=== PATIENT | female | born 1940 | race Caucasian/White ===

== ENCOUNTER → 2018-03-16 16:54 | Outpatient (CLI) | payer MEDICARE, OTHER, SELFPAY ==
--- NOTE | 2018-03-16 17:10 | MRI_ITS ---
STUDY: MRI RIGHT SHOULDER REASON FOR EXAM: Female, 78 years old. Pain after lifting injury 2 weeks ago. TECHNIQUE: Standardized fat and water weighted pulse sequences were obtained in all 3 orthogonal planes. COMPARISON: None. FINDINGS: Tendinosis with thickening of the distal supraspinatus and infraspinatus tendons. There is full-thickness tearing of the distal tendon, series 6 images 06/10 through . There is subscapularis tendinosis with tendon attrition, but without a demonstrated subscapularis tendon tear. Normal teres minor tendon. There is mild muscular atrophy of the supraspinatus muscle. There is mild muscular atrophy of the infraspinatus muscle. Normal subscapularis muscle. Normal teres minor muscle. There is a moderate volume joint effusion of the glenohumeral joint. There is a cortical erosion at the insertion of the infraspinatus tendon. Tear at the biceps anchor with subluxation of the long head of the biceps. Normal labrum. Normal capsulo- ligamentous complex. Normal rotator interval. There is moderate osteoarthritis of the acromioclavicular articulations. There is a Type II morphology (curved) acromion, with a neutral orientation. There is moderate fluid distention of the subacromial bursa, consistent with moderate subacromial-subdeltoid bursitis. Normal visualized coracohumeral and coracoacromial ligaments. Normal quadrilateral space. Normal axillary space. Normal deltoid muscle. Normal trapezius muscle. MRI/Upper Ext Joint Only(Routine) IMPRESSION: Rotator cuff tear of the supraspinatus and infraspinatus tendons. Tearing of the biceps anchor with subluxation of the long head of the biceps. Joint effusion. Subacromial subdeltoid bursitis Electronically Signed: Turner Cormier MD at 19:41 EDT , Service support ,
== END ==
PROVIDERS: Family Provider Internal Medicine; PCP Internal Medicine; Visit Provider Physician Assistant
DX: M25.511 Pain in right shoulder (principal); R53.1 Weakness
CPT/HCPCS: 73221

== ENCOUNTER → 2018-04-22 10:04 | Outpatient (CLI) | payer MEDICARE, OTHER, SELFPAY ==
--- NOTE | 2018-04-22 10:07 | RAD_ITS ---
STUDY: X-RAY - RIGHT SHOULDER REASON FOR EXAM: Strain injury 4 months ago. TECHNIQUE: 3 view(s) of the shoulder. COMPARISON: Radiographs 06/04/2005. FINDINGS: Normal glenohumeral articulation. There is acromioclavicular arthrosis. Normal acromion. There is chronic fracture deformity of the clavicular shaft. Normal humeral head and visualized proximal humerus. The soft tissue structures are unremarkable. Normal visualized pulmonary apex. RAD/Shoulder min 2 Views IMPRESSION: Acromioclavicular arthrosis. Chronic fracture deformity of the clavicle. Electronically Signed: All Beltran MD at 14:25 EDT Tel , Service support ,
== END ==
PROVIDERS: Family Provider Internal Medicine; PCP Internal Medicine; Visit Provider Orthopaedic Surgery
DX: M19.011 Primary osteoarthritis, right shoulder (principal); M95.8 Other specified acquired deformities of musculoskeletal system
CPT/HCPCS: 73030

== ENCOUNTER → 2019-03-23 06:14 | Outpatient (CLI) | payer MEDICARE, OTHER, SELFPAY ==
[2018-12-14 13:06] VITALS: BMI 25.0
--- NOTE | 2019-03-23 16:18 | STRESSREP ---
Stress Test Report Pharmacologic myocardial perfusion stress test. 79-year-old lady with a history of palpitations left bundle branch block. Stress protocol: Resting EKG demonstrates normal sinus rhythm with a rate of 61 bpm left bundle branch block is noted resting blood pressures 158/80 8 m of mercury. 0.4 mg of regadenoson was infused per usual protocol and followed by Intravenous saline flush injection continuous EKG monitoring was performed. The maximum heart rate attained was 115 bpm which was 80% of maximum predicted heart rate and maximum workload was 1 metabolic equivalent. At rest there were no ST or T wave changes and is just abnormal flow reserve. Left bundle branch block pattern was noted throughout. The resting blood pressure 158/88 final blood pressure 730 over 70 mmHg Myocardial perfusion protocol. 11.5 mCi of technetium 99m sestamibi was injected at rest. 0.4 mg of regadenoson was infused per usual protocol peak infusion 34.1 mCi of technetium 99m sestamibi was injected stress images were obtained stress and rest images were reconstructed in comparing the short axis vertical and horizontal long axis. Gated images were also obtained Perfusion SPECT analysis: Review of the stress images demonstrate normal uptake of tracer noted in all areas of myocardium the rest images similar demonstrate normal uptake of tracer noted in all rest myocardium. There was mild reduction noted in the anterior wall on the stress and rest images suggestive of anterior breast wall attenuation artifact. Conclusion: Probably normal pharmacologic myocardial perfusion stress test. Left bundle branch block pattern noted. Preserved ejection fraction.
== END ==
PROVIDERS: Family Provider Internal Medicine; PCP Internal Medicine; Referring Provider Internal Medicine Cardiovascular Disease; Visit Provider Internal Medicine Cardiovascular Disease
DX: I44.7 Left bundle-branch block, unspecified (principal); R00.2 Palpitations; R93.1 Abnormal findings on diagnostic imaging of heart and coronary circulation; R94.31 Abnormal electrocardiogram [ECG] [EKG]
CPT/HCPCS: 78452; 93017; A9500; A4216; J2785

== ENCOUNTER → 2019-07-13 15:36 | Outpatient (CLI) | payer MEDICARE, OTHER, SELFPAY ==
[2018-12-14 13:06] VITALS: BMI 25.0
--- NOTE | 2019-07-13 15:44 | MRI_ITS ---
STUDY: MRI LUMBAR SPINE WITHOUT CONTRAST REASON FOR EXAM: Female, 79 years old. Back pain. Right leg pain. TECHNIQUE: Standardized fat and water weighted pulse sequences were obtained in the sagittal and axial planes. COMPARISON: Radiographs of July 19, 2015 FINDINGS: There is a 28 degree lumbar scoliosis with convexity to the right with a first degree spondylolisthesis of L4 over L5. There are no fractures and no abnormal mottled infiltrative processes. Almost all the disc spaces are narrowed except for L5-S1 L1-2: Disc space narrowing with marginal osteophytes. Degenerative changes of the facet joints. No focal disc protrusion or extrusion. L2-3: Disc space narrowing with marginal osteophytes. No focal disc protrusion or extrusion. Degenerative changes of the facet joints with hypertrophy ligamentum flavum and subsequent central canal stenosis. L3-4: Severe central canal stenosis secondary to marked hypertrophy of the ligamentum flavum and degenerative changes of the facet joints. There is also disc space narrowing with marginal osteophytes. L4-5: A first degree (6.3 mm) spondylolisthesis of L4 over L5. A very severe central canal stenosis secondary to hypertrophy of the ligamenta flava. Facet arthrosis. L5-S1: Normal endplates. Normal disc height, hydration and morphology. Normal bilateral facet joints. Normal central canal and bilateral lateral recesses. Normal bilateral intervertebral neural foramina. The aorta and visualized portions of the kidneys are within normal limits. MRI/Spine Lumbar (Routine) IMPRESSION: A first degree spondylolisthesis of L4 over L5. No focal disc protrusion or extrusion A 20 degree lumbar scoliosis with convexity to the right. Multilevel intervertebral osteochondrosis. Severe central canal stenosis at L2-3, L3-4 and L4-5 Electronically Signed: Guerrero Hsu MD at 4:52 EDT Tel , Service support ,
== END ==
PROVIDERS: Family Provider Internal Medicine; PCP Internal Medicine; Referring Provider Anesthesiology Pain Medicine; Visit Provider Anesthesiology Pain Medicine
DX: M54.9 Dorsalgia, unspecified (principal); M79.606 Pain in leg, unspecified
CPT/HCPCS: 72148

== ENCOUNTER 2019-09-05 11:30 | Outpatient (RCR) | payer MEDICARE, OTHER, SELFPAY ==
[2018-12-14 13:06] VITALS: BMI 25.0
--- NOTE | 2019-08-04 18:04 | HP.PTEVAL_ITS ---
Patient's Visit Information ECHO REED is a 79 year old F referred to Physical Therapy by Summer Hutchison MD with a diagnosis of BACK PAIN AND LEG PAIN. Date of Evaluation: 08/04/19 Physical Therapist: Chu Allen PT, Cert MDT, OCS - Visit Plan Frequency: 2x /Week Duration: 4 Weeks Plan: PT INERVENTIONS POSTURAL EX'S,DLS ABD/BACK ,LE STRENGTHENING,LUMBAR FLEXION - Subjective Findings: This 79 y/o female presents to physical therapy with back and leg pain. Patient has lumbar radiculopathy for several years which has progressively worse over time. Patient pain located Lumbar symmtrical riight leg thight below knee occasional foot. Symptoms are intemittant decsribed as throbbing/burning in leg,back described as ache. Aggravating factors walking,standing,bending to side ,lifting. Allevating factors some with sitting ,resting.Patient pain affects sleeping.Patient has occasionally parathesia/tingling in leg. Coughing /sneezing occassional back-. Bowel/bladder -. Patient had MRI severe spinal stenosis L2-3,L3-4,L4-5,Spondylolisthesis,20 scoliosis . Patient seen chiropractor helped. Also ,seen pain cohen management epidural injecton. Lumbar pain affects ADLS' ,housew ork tasks. Pateint pain affects QOL and function. SOCIAL: . VOCATION: retired - Objective POSTURE: mild foward posture,scoliosis,pelvs assymtry. GAIT: reciprocal pattern. NEURO: denies parathesia/tingling ,reflexes L3-4,L4-5,L4-5. MMT: quads/hams 4/5 ,hip 4/5,ankle 4/5. LUMBAR ROM: flexion min loss,extension min/mod loss,side glides min loss. FLEXABLITY: hams min tight - Special Tests L/S Slump test left side: Negative L/S Slump test right side: Negative L/S Left Straight Leg Raise: Negative L/S Right Straight Leg Raise: Negative Lumbar Standing: Flexion - Mechanical Response: No effect Lumbar Standing: Flexion - Symptoms During Testing: No effect Lumbar Standing: Flexion - Symptoms After Testing: No effect Lumbar Standing: Extension - Mechanical Response: No effect Lumbar Standing: Extension - Symptoms During Testing: Increases Lumbar Standing: Extension - Symptoms After Testing: No worse Lumbar Standing: Right Side Glides - Mechanical Response: No effect Lumbar Standing: Right Side [place] - Symptoms During Testing: No effect Lumbar Standing: Right Side [place] - Symptoms After Testing: No effect Lumbar Standing: Left Side [place] - Mechanical Response: No effect Lumbar Standing: Left Side [place] - Symptoms During Testing: No effect Lumbar Standing: Left Side [place] - Symptoms After Testing: No effect - Goals Goal 1:: Patient to be Indepenant with HEP Goal Time Frame: 4-6 Weeks Goal 2:: Patient improve posture for ADL'S Goal Time Frame: 4-6 Weeks Goal 3:: Patient to decrease symptoms with ADL'S by 50% or> to improve QOL. Goal Time Frame: 4-6 Weeks Goal 4:: Patient to improve lumbar ROM for function of recovery Goal Time Frame: 4-6 Weeks Goal 5:: Pateint to inmprove back owestry score by 5 points or> to improve QOL. Goal Time Frame: 2-4 Weeks - Rehabilitation Potential Physical Therapy Diagnosis: This patient has lumbar radiculopathy from stenosis affecting right side with pain wosre with walking ,standing affects ADL's and housework tasks ,better with flexion thus benifit from Skilled PT Rehabilitation Potential: Good - Anticipated Interventions Patient/Client Instruction: Educate patient on: Condition, Plan of Care For the Purpose of:: To decrease pain, To increase ROM, To improve ability to perform ADL's, To increase tolerance to activity/condition/position, To improve ability of physical actions for home/community/work/leisure, To improve health of tissue, To decrease soft tissue restriction, To increase flexibility/ROM, To improve ability to perform tasks related to life management Therapeutic Exercise to Include: Strength training, Postural training, Flexibilty training, Dynamic Lumbar Stabilization For the Purpose of:: To decrease pain, To increase ROM, To improve muscle performance and motor function, To increase tolerance to activity/condition/position, To improve ability of physical actions for home/community/work/leisure, To improve health of tissue, To decrease soft tissue restriction, To increase flexibility/ROM, To reduce risk of recurrence, To improve ability to perform tasks related to life management Thank you for the opportunity to evaluate your patient. For Medicare and Medicare HMO plans, please review the plan of care and approve it. It will need to be FAXED BACK to us at [phone] for Medicare purposes. For Medicare only, by signing this I certify the plan of care. Please let me know if there are questions or concerns regarding this plan of care. Physician Signature: Date:
--- NOTE | 2019-09-05 11:54 | HP.PTDCSUM ---
HP - PT D/C Summary It has been my pleasure to treat ECHO REED under orders from Summer Hutchison MD, for the diagnosis of BACK PAIN AND LEG PAIN for a total of 8 visit(s). Discharge Date: 09/05/19 Please see the following information for a summary of their discharge status. - Subjective Subjective: Doing alot better .. Ablle to do all ADL;S. No pain today - Pain LB Pain Intensity (Out of 10): 0 - Overall Improvement % Improvement: 80 - Objective Objective/Function: POSTURE: MILD FOWARD POSTURE. GAIT: RECIPROCAL PATTERN. MMT: /,EXCEPT 4-/5. LUMBAR ROM: FLEXION [place],EXTENSION MIN LOSS - Goals Goal 1:: Patient to be Indepenant with HEP Goal Progress: Goal Met Goal 2:: Patient improve posture for ADL'S Goal Progress: Goal Met Goal 3:: Patient to decrease symptoms with ADL'S by 50% or> to improve QOL. Goal Progress: Goal Met Goal 4:: Patient to improve lumbar ROM for function of recovery Goal Progress: Goal Met Goal 5:: Pateint to inmprove back owestry score by 5 points or> to improve QOL. Goal Progress: Goal Met - Plan Plan: D/C TO HEP - D/C Information Discharge Comments: HEP If there are questions or concerns regarding this patient's physical therapy, please feel free to call me at [phone]. Thank you for the referral of this patient. Sincerely, Chu Allen, PT, Cert MDT, OCS
== END 2019-09-05 19:00 | disposition home or self-care (01) ==
LOC: PT 11:30
PROVIDERS: Family Provider Internal Medicine; PCP Internal Medicine; Referring Provider Anesthesiology Pain Medicine; Visit Provider Anesthesiology Pain Medicine
DX: M54.9 Dorsalgia, unspecified (principal); M79.606 Pain in leg, unspecified
CPT/HCPCS: 97110; 97162; 97530

== ENCOUNTER → 2019-11-08 17:44 | Outpatient (CLI) | payer MEDICARE, OTHER, SELFPAY ==
[2018-12-14 13:06] VITALS: BMI 25.0
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
== END ==
PROVIDERS: PCP Internal Medicine; Referring Provider Anesthesiology Pain Medicine; Visit Provider Anesthesiology Pain Medicine
DX: M54.9 Dorsalgia, unspecified (principal); R29.898 Other symptoms and signs involving the musculoskeletal system
CPT/HCPCS: 72148

== ENCOUNTER → 2020-01-27 09:00 | Outpatient (CLI) | payer MEDICARE, OTHER, SELFPAY ==
[2019-12-13 11:38] VITALS: BMI 24.3
== END ==
PROVIDERS: PCP Internal Medicine; Referring Provider Nurse Practitioner Family; Visit Provider Nurse Practitioner Family
DX: R00.2 Palpitations (principal); I44.7 Left bundle-branch block, unspecified
CPT/HCPCS: 93225; 93226

== ENCOUNTER → 2020-03-06 08:54 | Outpatient (CLI) | payer MEDICARE, OTHER, SELFPAY ==
[2019-12-13 11:38] VITALS: BMI 24.3
--- NOTE | 2020-03-06 09:07 | BD_ITS ---
STUDY: DUAL ENERGY X-RAY ABSORPTIOMETRY / DXA REASON FOR EXAM: Female, 80 years old. 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 COMPARISON: Comparison is made with prior study dated July 31, 2009. FINDINGS: Lumbar Spine (L1-L4): g/cm2 (1.352) / T-score (1.3) / Z-score (3.1) Findings are suggestive of normal bone density with a low fracture risk. Increased thoracic kyphosis. Left Femur Total: g/cm2 (0.834) / T-score (-1.4) / Z-score (0.5) Left Femoral Neck: g/cm2 (0.887) / T-score (-1.1) / Z-score (1.0) Right Femur Total: g/cm2 (0.840) / T-score (-1.3) / Z-score (0.6) Right Femoral Neck: g/cm2 (0.955) / T-score (-0.6) / Z-score (1.5) The T-Scores on the most recent prior examination were: Lumbar Spine (L1-L4): There has been improvement of bone density since the previous examination. Left Femur Total: which represents a worsening of 19%. Right Femur Total: which represents a worsening of 14.1%. BD/Dexa Bone Density Study IMPRESSION: The patient is considered osteopenic as outlined below according to World Yair Organization (WHO) criteria with a low fracture risk. There has been worsening of bone density since the previous examination. Reference Information: The T-score is the number of standard deviations above or below the standard which is normal for young adults at their peak bone mineral density. The World Health Organization (WHO) interprets the T-scores as follows: Above -1 Normal bone density Between -1 and -2.5 Osteopenia Equal to / or below -2.5 Osteoporosis As a practical clinical guideline, osteopenia may be graded as follows: Mild -1 through -1.5 Moderate -1.6 through -2.0 Severe -2.1 through -2.4 The Z-score is the number of standard deviations above or below age-matched controls. A Z-score of less than -1.5 would be considered abnormal. References: 1. NIH Osteoporosis and Related Bone Diseases http://www.osteo.org 2. International Society for Clinical Densitometry http://www.iscd.org 3. National Osteoporosis Foundation http://www.nof.org Electronically Signed: Alphonso Dukes, at 12:32 EDT , Service support ,
== END ==
PROVIDERS: PCP Internal Medicine; Referring Provider Orthopaedic Surgery; Visit Provider Orthopaedic Surgery
DX: M41.86 Other forms of scoliosis, lumbar region (principal); M89.9 Disorder of bone, unspecified; Z78.0 Asymptomatic menopausal state
CPT/HCPCS: 77080

== ENCOUNTER → 2020-03-12 08:41 | Outpatient (CLI) | payer MEDICARE, OTHER, SELFPAY ==
[2019-12-13 11:38] VITALS: BMI 24.3
--- NOTE | 2020-03-12 08:43 | CDU_ITS ---
Reason For Study: stenosis Rt. Velocities/BP Lt. Velocities/BP Prox CCA 57/13 cm/sec. Prox CCA 95/25 cm/sec. Mid CCA 55/16 cm/sec. Mid CCA 73/25 cm/sec. Dist CCA 52/12 cm/sec. Dist CCA 71/20 cm/sec. Prox ICA 50/19 cm/sec. Prox ICA 58/24 cm/sec. Mid ICA 67/28 cm/sec. Mid ICA 89/36 cm/sec. Dist ICA 67/25 cm/sec. Dist ICA 113/47 cm/sec. Rt. ICA/CCA = 1.2. Lt. ICA/CCA = 1.2. Prox ECA 38/8 cm/sec. Prox ECA 47/14 cm/sec. Rt. Vert. 47/13 cm/sec. Lt. Vert. 58/20 cm/sec. Right Extracranial The right common carotid artery is tortuous. There is homogeneous, smooth atherosclerotic plaque noted in the right common carotid artery. There is homogeneous, irregular atherosclerotic plaque noted in the right internal carotid artery. The right external carotid artery is not well visualized. Antegrade flow is noted in the right vertebral artery. There is heterogeneous, irregular atherosclerotic plaque noted in the right bulb. Left Extracranial There is homogeneous, smooth atherosclerotic plaque noted in the left common carotid artery. There is homogeneous, smooth atherosclerotic plaque noted in the left internal carotid artery. There is homogeneous, smooth atherosclerotic plaque noted in the left external carotid artery. Antegrade flow is noted in the left vertebral artery. There is homogeneous, smooth atherosclerotic plaque noted in the left bulb. Procedure Carotid Duplex [id number]. The study was technically difficult. High bifurcation. Exam performed in department. Interpretation Summary Mild (<50%) stenosis right extracranial internal carotid. Mild (<50%) stenosis left extracranial internal carotid. Flow within the vertebral arteries is antegrade bilaterally. Atherosclerotic plaque in the carotid bulbs does not appear to be hemodynamically significant. Ordering Physician: Matt Iverson Referring Physician: Matt Iverson Performed By: Meryl Orellana, RUFINA, RVT
--- NOTE | 2020-03-12 08:43 | ART_ITS ---
Reason For Study: PVD Procedure A bilateral lower extremity continuous wave Doppler with analog waveform analysis,segmental pressures,and ankle brachial indexes without exercise. Left Segmental Pressures Left brachial= 133mmHg. Left posterior tibial artery = 171mmHg. Left dorsalis pedis artery = 177mmHg. Left digit = 145 mmHg. The left dorsalis pedis waveforms are triphasic. The left posterior tibial artery waveforms are triphasic. Right Segmental Pressures Right brachial= 137mmHg. Right posterior tibial artery = 178mmHg. Right dorsalis pedis artery = 178mmHg. Right digit = 103 mmHg. The right dorsalis pedis waveforms are triphasic. The right posterior tibial artery waveforms are triphasic. Indices The right ankle brachial index by the dorsalis pedis is 1.3. The right ankle brachial index by the posterior tibial artery is 1.3. The right digital-brachial index is .75. The left ankle brachial index by the posterior tibial artery is 1.25. The left ankle brachial index by the dorsalis pedis is 1.29. The left digital-brachial index is 1.06. Interpretation Summary Triphasic Doppler waveforms are noted at ankle level bilaterally. Pulse-volume recordings appear satisfactory at all levels bilaterally, including low-thigh, calf, ankle, and digital levels. Resting ankle-brachial indices are normal bilaterally. Digital-brachial indices are normal bilaterally. There is no evidence of significant arterial occlusive disease in the lower extremities bilaterally. Ordering Physician: Matt Iverson Referring Physician: Matt Iverson Performed By: FINA MARTINEZ RDCS
== END ==
PROVIDERS: PCP Internal Medicine; Referring Provider Nurse Practitioner Family; Visit Provider Nurse Practitioner Family
DX: I73.9 Peripheral vascular disease, unspecified (principal); I65.22 Occlusion and stenosis of left carotid artery
CPT/HCPCS: 93880; 93923

== ENCOUNTER → 2020-08-02 14:24 | Outpatient (CLI) | payer MEDICARE, OTHER, SELFPAY ==
[2019-12-13 11:38] VITALS: BMI 24.3
--- NOTE | 2020-08-02 14:26 | RAD_ITS ---
STUDY: X-RAY - LEFT KNEE REASON FOR EXAM: Female, 80 years old. Bilateral knee pain. TECHNIQUE: 4 view(s) of the knee. COMPARISON: None. FINDINGS: Normal visualized distal femur. Normal visualized proximal tibia and fibula. Normal proximal tibiofibular articulation. There is no acute fracture, dislocation or destructive osseous pathology. There is an enthesophyte at the insertion of the quadriceps tendon on the otherwise normal patella. There is moderate degenerative arthrosis of the medial femorotibial compartment with moderate joint space narrowing. Normal lateral femorotibial compartment. There is mild degenerative arthrosis of the patellofemoral articulation. There is no demonstrated joint effusion. The soft tissue structures are unremarkable. RAD/Knee 4 or More Views IMPRESSION: Arthrosis of the left knee. Electronically Signed: Deangelo Mendez DO at 21:15 EST Tel [phone], Service support ,
--- NOTE | 2020-08-02 14:27 | RAD_ITS ---
STUDY: X-RAY - RIGHT KNEE REASON FOR EXAM: Female, 80 years old. Bilateral knee pain. TECHNIQUE: Full view(s) of the knee. COMPARISON: None. FINDINGS: Normal visualized distal femur. Normal visualized proximal tibia and fibula. Normal proximal tibiofibular articulation. There is no acute fracture, dislocation or destructive osseous pathology. There is moderate to severe degenerative arthrosis of the medial femorotibial compartment with moderate joint space narrowing. Normal lateral femorotibial compartment. There is mild degenerative arthrosis of the patellofemoral articulation. The quadrant The soft tissue structures are unremarkable. RAD/Knee 4 or More Views IMPRESSION: Arthrosis of the right knee Electronically Signed: Deangelo Mendez DO at 21:21 EST Tel [phone], Service support ,
== END ==
PROVIDERS: PCP Internal Medicine; Visit Provider Anesthesiology Pain Medicine
DX: M17.0 Bilateral primary osteoarthritis of knee (principal)
CPT/HCPCS: 73564

== ENCOUNTER 2020-08-08 10:30 | Outpatient (RCR) | payer MEDICARE, OTHER, SELFPAY ==
[2019-12-13 11:38] VITALS: BMI 24.3
--- NOTE | 2020-08-08 11:53 | HP.PTDCSUM_ITS ---
It has been my pleasure to treat ECHO REED referred by MAURICE Lipscomb, with the diagnosis of LUMBAR SPONDYLOLISTHESIS. S/P L3-L5 FUSION & MICRODECOMP 06/25/20 for a total of 10 visit(s). Discharge Date: Please see the following information for a summary of their discharge status. Subjective: PATIENT REPORTS DR. MCLAUGHLIN GAVE HER SHOTS IN BOTH KNEES AND IT REALLY HELPED. PATIENT REPORTS SHE IS DOING HER HEP AND WALKING WITHOUT QUESTIONS OR CONCERNS. STILL TAKING TYLONOL 3 TIMES A DAY FOR LBP AND REPORTS SHE TRIED TO DECREASE THE TYLONOL BUT HASN'T BEEN ABLE TO. LOW BACK Pain Intensity (Out of 10): 1 RIGHT HIP Pain Intensity (Out of 10): 0 RIGHT KNEE Pain Intensity (Out of 10): 0 % Improvement: 70 Objective/Function: PATIENT WAS SEEN TODAY FOR RE-ASSESSMENT OF PROGRESS TOWARD THE SET PT GOALS AND THE NEED FOR FURTHER PHYSICAL THERAPY VS READINESS FOR DISCHARGE. THIS PT AND PATIENT ARE AGREEABLE TO DISCHARGE. PATIENT CONTINUES TO NOT WANT TO PROGRESS TO GYM EX'S OF ANY TYPE DUE TO THE VIRUS AND SHE IS HAPPY WITH HER HEP. SHE COMMUNICATED A GOOD UNDERSTANDING OF ALL INSTRUCTIONS GIVEN TODAY IN RERGUARD TO SLOW PROGRESSION TO BENDING AND TWISTING STARTING WITH SKTC AND LTR ONCE HER RESTRICTIONS ARE LIFTED. OVER-ALL PATIENT HAS DONE VERY WELL WITH PT. UPON EXAM TODAY: INDEP GAIT INTO PT WITHOUT ANY ASSISTIVE DEVICES AND WITHOUT LOB. GOOD CADANCE. PATIENT IS ABLE TO TRANSFER SIT TO STAND WITHOUT UE ASSIST. Motor deficit: BROOKE LE'S WFL. ROM deficit: BROOKE GENU VALGUS. UNABLE TO FULLY EXTEND BROOKE KNEES. Reflexes: NT. Dural Signs: NEGATIVE BROOKE LE'S. Lumbar mvmt loss: NT (PATIENT REPORTS SHE IS NOT ALLOWED TO BEND, LIFT OR TWIST UNTIL NEXT FOLLOW UP IN AUGUST). Core strength: FAIR. Palpation: INCISION LOOKS GOOD BUT THERE IS STILL A SCAB AT THE BOTTOM OF THE I NCISION AND SOME REDNESS. PATIENT DENIES DRAINAGE AND STATES HER IS MONITORING IT EVERY DAY. TODAY - WITH PATIENTS CONSENT MICHAEL SMITH DPT USED STERILE TWEEZERS TO GENTLY SUPERFICIALLY REMOVE SMALL SCAB AND WHAT APPEARED TO BE A SMALL PIECE OF STITCH THAT HAS NOT DISSOLVED. PATIENT TO CONTINUE TO MONITOR CLOSELY. Goal 1:: DECREASE C/O BACK AND LE SX'S. Goal 2:: IMPROVE LIFTING, WALKING, SITTING, STANDING, SLEEP, SOCIAL LIFE, TRAVEL AND HOMEMAKING FUNCTION Goal 3:: INSTRUCT IN PROPHYLAXIS Plan: D/C TO HEP If there are questions or concerns regarding this patient's physical therapy, please feel free to call me at [phone]. Thank you for the referral of this patient. Sincerely, Kennedi Delgado, PT, Cert MDT
== END 2020-08-08 19:00 | disposition home or self-care (01) ==
LOC: PT 10:30
PROVIDERS: PCP Internal Medicine; Referring Provider Nurse Practitioner Acute Care; Visit Provider Nurse Practitioner Acute Care
DX: M43.16 Spondylolisthesis, lumbar region (principal)
CPT/HCPCS: 97110; 97162; 97164; 97530

== ENCOUNTER 2020-10-30 09:41 | Outpatient (RCR) | payer MEDICARE, OTHER, SELFPAY ==
[2019-12-13 11:38] VITALS: BMI 24.3
== END 2020-10-30 23:59 ==
LOC: IMMUN 09:41
PROVIDERS: PCP Internal Medicine; Referring Provider Family Medicine; Visit Provider Family Medicine
DX: Z23 Encounter for immunization (principal)
CPT/HCPCS: 0012A

== ENCOUNTER → 2020-12-24 08:31 | Outpatient (CLI) | payer MEDICARE, OTHER, SELFPAY ==
[2020-12-14 10:25] VITALS: BMI 24.7
--- NOTE | 2020-12-24 08:33 | CT_ITS ---
STUDY: CT RIGHT LOWER EXTREMITY WITHOUT CONTRAST REASON FOR EXAM: Right knee pain, presurgical planning. TECHNIQUE: Transaxial CT imaging of the lower extremity was performed. Coronal and sagittal images were reformatted. Individualized dose optimization techniques were used for this CT. COMPARISON: Radiographs 08/02/2020. FINDINGS: Knee: There are marginal osteophytes, subchondral cystic change/sclerosis and joint space narrowing of the medial femorotibial compartment (coronal reconstruction 27). Normal lateral femoral condyle and lateral tibial plateau. There is preservation of the articular joint space of the lateral knee compartment. There are small marginal osteophytes and mild joint space narrowing of the patellofemoral articulation (sagittal reconstruction 31). Normal proximal tibiofibular articulation. There is a joint effusion sagittal reconstruction 25). The quadriceps tendon is grossly normal. There is an enthesophyte at the superior pole of the patella. The patellar tendon is grossly normal. Normal Hoffa''s fat pad. There is a popliteal cyst (sagittal reconstructions 39-43). There is chondrocalcinosis in the menisci. There is a posterior intra-articular body (sagittal reconstructions 31-33). There is vascular calcification. Hip: There are small marginal osteophytes of the femoral head, subchondral cystic change of the lateral acetabulum and mild joint space narrowing the superior medial hip joint (coronal reconstructions 59). There is chondrocalcinosis of the right hip. Ankle: Normal tibiotalar, posterior subtalar and and talonavicular articulations. There is a small posterior calcaneal enthesophyte. CT/Extremity Lower without Contra IMPRESSION: Arthrosis of the medial femorotibial and patellofemoral compartments. Intra-articular body. Chondrocalcinosis. Right knee joint effusion and popliteal cyst. Electronically Signed: All Beltran MD at 9:17 EDT Tel , Service support ,
== END ==
PROVIDERS: PCP Internal Medicine; Referring Provider Orthopaedic Surgery; Visit Provider Orthopaedic Surgery
DX: M17.11 Unilateral primary osteoarthritis, right knee (principal); M11.261 Other chondrocalcinosis, right knee; M71.21 Synovial cyst of popliteal space [Baker], right knee
CPT/HCPCS: 73700; 93005

== ENCOUNTER 2021-01-01 10:36 | Inpatient (IN) | payer MEDICARE, OTHER, SELFPAY ==
[2020-12-14 10:25] VITALS: BMI 24.7
--- NOTE | 2020-12-20 09:22 | NURSING ---
PATIENT HAS RECEIVED THE MODERNA VACCINE X2 LAST DOSE 11/30/20
--- NOTE | 2020-12-24 12:54 | EKG12_ITS ---
Test Reason : PRE OP Blood Pressure : / mmHG Vent. Rate : 073 BPM Atrial Rate : 073 BPM P-R Int : 130 ms QRS Dur : 122 ms QT Int : 424 ms P-R-T Axes : 068 023 109 degrees QTc Int : 467 ms Normal sinus rhythm Left bundle branch block Abnormal ECG Confirmed by DIAMOND CORONEL, RACHELE ([id number]), content editor KAMRAN MEZA ([id number]) on 12/26/2020 7:38:57 AM Referred By: Jignesh Foster Confirmed By:RACHELE FIELDS MD
[2020-12-24 13:31] LABS: Absolute Lymphocyte Count 1.55 X10^3/uL (0.83-4.51); Absolute Neutrophil Count 3.8 X10^3/uL (2.0-7.7); Basophil# 0.06 X10^3/uL; Eosinophil# 0.04 X10^3/uL; Eosinophils% 0.7 % (0-5); Hematocrit 37.4 % (37-47); Hemoglobin 12.1 g/dL (12.0-15.0); Lymphocyte # 1.55 X10^3/ul (4.0); Lymphocyte % 25.9 % (19-41); Mean Corp Hgb Conc 32.4 g/dL (32-36); Mean Corpuscular Hgb 30.2 pg (27.0-32.0); Mean Corpuscular Volume 93.3 fL (81-99); Mean Platelet Vol. 9.5 fl (6.2-12.0); Monocyte% 8.4 % (0-10); NRBC Flagged by Analyzer 0 % (0-5); Neutrophil # 3.81 X10^3/uL (2.7-7.7); Neutrophil % 63.7 % (47-70); Platelet Count 362 K/mm3 (150-450); RBC Distribution Width CV 13.2 % (11.6-14.6); RBC Distribution Width SD 45.4 fl (35.1-43.9); Red Blood Count 4.01 M/mm3 (4.2-5.4)
[2020-12-24 13:42] LABS: Prothrombin Time (Protime)PT. 12.6 SECONDS (11.7-14.9)
[2020-12-24 13:44] LABS: Partial Thromboplast Time 29.3 Seconds (24.1-36.2)
[2020-12-24 13:59] LABS: Anion Gap 8 (5-15); BUN 21 mg/dL (7-18); Calcium,Total 9.3 mg/dL (8.5-10.1); Chloride 106 mmol/L (98-107); Creatinine, Serum 0.81 mg/dL (0.55-1.02); EST Glomerular Filtration Rate 73 mL/min (>60); Est Glom Filt Rate - Afr Amer 88 mL/min (>60); Glucose 97 mg/dL (74-106); Potassium 3.9 mmol/L (3.5-5.1); Sodium Level 137 mmol/L (136-145)
[2020-12-24 14:02] LABS: Magnesium 2.1 mg/dL (1.6-2.6)
[2020-12-25 09:17] LABS: Fructosamine 263 umol/L (0-285)
[2021-01-01] VITALS (15 sets, daily range): BP systolic 102–137; BP diastolic 39–71; PULSE 57–92; RESP 14–18; TEMP 36.3–36.8; O2SAT 95–100; BMI 24.2
[2021-01-01] MEDS: Acetaminophen 500 MG Tablet 1000 MG PO ×3 (06:16→21:10)
[2021-01-01] MEDS: Gabapentin 600 MG Tablet PO (06:16)
[2021-01-01] MEDS: Scopolamine 1mg/72hr Patch 1 PATCH TD (06:16)
[2021-01-01] MEDS: Insulin Lispro 100 UNIT/ML INSULN.PEN SC (06:29)
[2021-01-01] MEDS: Lactated Ringers 1,000 ML 100 ML IV ×2 (06:31→10:45)
--- NOTE | 2021-01-01 07:10 | HP.PCM_ITS ---
History and Physical Date of Admission: 01/01/21 Intake Intake Visit Reasons: right knee Allergies cigarette smoke Allergy (Intermediate, Verified 12/20/20 08:50) difficulty breathing latex Adverse Reaction (Mild, Verified 12/20/20 08:50) Skin irritation, and skin tearing acetaminophen [From [place]] Adverse Reaction (Verified 12/20/20 09:00) suicidal hydrocodone [From [place]] Adverse Reaction (Verified 12/20/20 09:00) suicidal oxycodone Adverse Reaction (Verified 12/20/20 09:00) flu-like symptoms tramadol Adverse Reaction (Verified 12/20/20 09:00) suicidal seasonal allergies Allergy (Uncoded 12/20/20 08:50) sinus PFSH Medical History Essential hypertension (Chronic) Left bundle branch block (Chronic) h/o back surgery (Acute) Spinal stenosis (Chronic) Dizziness (Inactive) Surgical History History of carpal tunnel release of both wrists (Resolved) History of lateral meniscus repair of right knee (Resolved) Hx of cataract surgery (Resolved) S/P trigger finger release (Resolved) Family History (Updated 12/14/20 @ 10:36 by Nita Menchaca) Father Negative for ASCVD Colon cancer Mother Negative for ASCVD Colon cancer Brother Lung cancer Sister Bile duct cancer Lung cancer Social History (Updated 12/21/20 @ 09:[address] Jignesh Foster DO) household members: spouse housing: house Smoking Status: Never smoker second hand exposure: No alcohol intake: never substance use type: does not use caffeine: Yes Type: coffee, tea what type of physical activity do you participate in: walking, additional details: exercises for her back and knee frequency: daily seatbelt use: always do you feel safe at home: Yes HPI right knee: Details: Parts of this documentation were recorded by a scribe, this documentation accurately reflects the service provided and the decisions made by me, Dr. Jignesh Foster DO 12/21/20 [id number]. ECHO REED is a 80 year old F here today for right knee IOVERA treatment. Patient continues to have right knee pain. Denies numbness, tingling or other associated symptoms since she had her lumbar surgery in 06/2020. Denies any new injuries. Denies any changes in medications. ROS Const Reports system reviewed and no additional complaints, except as docu Eyes Reports system reviewed and no additional complaints, except as docu ENT Reports system reviewed and no additional complaints, except as docu Card Reports system reviewed and no additional complaints, except as docu Resp Reports system reviewed and no additional complaints, except as docu GI Reports system reviewed and no additional complaints, except as docu Reports system reviewed and no additional complaints, except as docu Musc Reports joint pain, Reports limited joint movement Skin/Breast Reports system reviewed and no additional complaints, except as docu Neuro Yes system reviewed and no additional complaints, except as docu Psych Reports system reviewed and no additional complaints, except as docu Endo Reports system reviewed and no additional complaints, except as docu Ortho Exam General General: Yes no acute distress Neurologic: Yes alert Psychologic: Yes reasonable and appropriate Right Knee Knee ROM: No ROM-Extension -20 to 0 (-7), No ROM-Flexion 0-140 (115) Stability: NML: Anterior Drawer, NML: Posterior Drawer, NML: Valgus 0, NML: Valgus 30, NML: Varus 0, NML: Varus 30 Patella Translation: 1 Patella Grind: Yes KNEE: varus deformity no joint effusion fixed varus deformity 2/4 posterior tibial pulse 1/4 dorsalis pedis pulse 10 degrees internal rotation 45 degrees external rotation Left Knee Patella Translation: 1 Office Procedures Iovera Details:: Preoperative diagnosis :right knee pain, OA Postoperative diagnosis: Same Procedure: Cryotherapy with Iovera device to anterior femoral cutaneous nerve and 2 branches of the infrapatellar saphenous nerve III nerves in total Description of procedure: Patient was brought back to the procedure room the operative extremity was identified by both patient and physician. The PIP flexion crease was measured to the midpoint of the patella and this distance was divided in 3 resulting in 10 cm location proximal to the midpoint of the patella. This line was extended medial and lateral to the extent of the edges of the patella. This was our treatment line for the anterior femoral cutaneous nerve. A second treatment line was made 5 cm medial to the inferior pole of the patella and 5 cm distally. The leg was prepped with alcohol and Betadine. Lidocaine with epi was used along the treatment lines. Using the Iovera device treatment lines were treated with 1 minute cycles. Reproduction of paresthesias was monitored in the area of nerve distribution. Once all 3 nerves were treated across the 2 treatment lines patient was cleaned and a light dressing with 4 x 4 and Joce wrap was applied. Patient tolerated the procedure without complication. Supplemental Info 08/02/2020 x-ray right knee: Advanced knee arthrosis [id number] medial compartment with varus deformity spurring throughout the knee Assessment & Plan Problems 1. Chronic pain of right knee M25.561; G89.29 Plan Discussed IOVERA tx with the patient. Patient wishes to proceed with IOVERA tx today. She was given her pre op soap and ensure drinks at the last visit. She has a walker at home she will bring to the hospital with her. Follow up 2 week post op or sooner if pain, swelling, numbness or associated symptoms, or concerns develop. All questions answered. Patient in agreement of plan. Orders Orders: Iovera Today M25.569 Coding Level of Care Code Attention Engineering Technologist Diagnoses Chronic pain of right knee M25.561; G89.29 ??Chronicity: chronic I have re-examined the patient. There are no clinical changes since date of exam Procedure Criteria Procedure Type: Elective COVID Risk Discussion: The surgeon/proceduralist and patient have discussed in detail the risk of exposure to and/or potential harm posed by the COVID-19 virus with having a surgery/procedure at this time versus the risk of delaying the surgery/procedure. It is not possible to know either the risk of delaying the surgery or procedure or chance of getting an infection with perfect accuracy, but a joint decision was made between the patient and the surgeon/proceduralist to proceed at this time with the scheduled surgery/procedure as indicated on the consent form.
[2021-01-01] MEDS: Cefazolin 2 GM in 0.9% Normal Saline 100 ML IV (07:43)
[2021-01-01 08:01] LABS: Bedside Glucose 191 mg/dL (70-110)
[2021-01-01] MEDS: Epinephrine (1 mg/ml) 1 MG/ML VIAL (09:59)
[2021-01-01] MEDS: Betamethasone/Betamethasone 30 MG/5 ML Vial (10:01)
[2021-01-01] MEDS: Bupivacaine 0.5% PF 10 ML VIAL OPERA.SITE (10:01)
--- NOTE | 2021-01-01 10:39 | PCM.OPRPT ---
Report of Operation Date of Procedure: 01/01/21 Description of Surgical Findings:: Preoperative diagnosis: Right knee DJD Postoperative diagnosis: Same Procedure: Right total knee arthroplasty CT guided Robotic Assisted Implant: Rodrigue triathlon cemented femoral component size 4, cemented tibial baseplate size 4, press fit asymmetric patella size 35, polyethylene X3 size 9 CS Anesthesia: Spinal with adductor canal block Tourniquet time: 28 minutes at 300 mmHg Complications: None Condition: Stable to PACU Estimated blood loss: 150 cc Indication for procedure: This is a 80-year-old female with long standing degenerative joint disease severe varus deformity and flexion contracture of the knee who has failed conservative treatment and wished to proceed with elective total knee arthroplasty. Risk benefits and alternatives were reviewed including; risk of bleeding, infection, nerve artery and tissue damage, continued pain, postoperative stiffness, venous thromboembolism, need for postoperative rehabilitation, mechanical feel to the knee, and expected postoperative course. The operative CT and templating was performed with component sizing Procedure: The patient was met in the preoperative holding area. The operative extremity was identified by both patient and physician and was marked. Patient was met by anesthesia. An adductor canal block was placed by anesthesia postoperatively the patient was brought back to the operating room on a wheeled cart and transferred to the operating table in the supine position. Anesthesia was started. A well-padded tourniquet was placed on the operative extremity. The patient was prepped and draped in the usual sterile fashion. A timeout was called to ensure the proper patient procedure and extremity were being contemplated. An Esmarch was used to exsanguinate the extremity. The tourniquet was inflated. A 10 blade scalpel was used to make a midline incision down through the skin and subcutaneous tissue. Skin retractors placed. Bovie was used to perform meticulous hemostasis. full-thickness flaps were elevated medial and lateral along the joint capsule. A deep blade scalpel was used to perform a medial parapatellar arthrotomy. The knee was brought to full extension. A Bovie was used to release the soft tissues off the most proximal aspect of the medial tibial plateau, a three-quarter inch curved osteotome was also used for this process. The infrapatellar fat pad was excised. The superior fat pad was excised partially anteriorolateraly and portion the anterioromedial pad was elevated from the femur. At this point our intra-articular femoral array was placed of a 45 degree angle proximal and posterior to the medial epicondyle. Our tibial array was placed greater than 1 hands breath below the incision at a 20 degree angle stab incisions were used for this case were attached and checked with the robotic software. Tourniquet was let down. At this point registration fuentes were taken throughout the knee as well as checkpoints placed in the femur and tibia once the knee was registered then tensioned the medial and lateral ligaments in extension and 90 degrees of flexion. We then used these numbers to adjust our components within parameters to balance the knee in both flexion and extension once this was done on our monitor we then proceeded with using the robotic arm to make our tibial plateau cut and anterior posterior and chamfer cuts and distal on the femur we then trialed and achieved the desired plan with a well-balanced knee, Quiring 18-gauge spinal needle perforated release under a controlled lamina automobile upholsterer apprentice of the medial compartment MCL. Lug holes were drilled in the femur the tibia preparation was completed with a fin punch and the patella was prepared by first using a caliper to ensure sufficient bone stock and a patellar reamer to remove the desired amount of bone locals were drilled for an asymmetric poly-. We then brought the knee through range of motion with excellent patellar tracking. We thoroughly irrigated the knee with a trial components were removed a posterior capsular injection with her standard cocktail was performed the aqua Mantis was also used to aid in hemostasis. Betadine rinse was allowed to sit and washed out components were demented. Aricept rinse was then used followed by several more rate liters of irrigation after it was allowed to sit. Joint capsule was closed with #1 Ethibond [id number]'s followed by Vicryl in the subcutaneous tissues staple in the skin arrays and checkpoints were removed prior to closure all counts were correct stab incisions were closed with a stable standard dressing in the form of Mepilex for the main incision Xeroform 4 x 4 and Tegaderm over pin site holes. Thigh-high VAN hose applied over top of dressing. Patient tolerated the procedure well and was directed to PACU in stable condition no intraoperative complications
--- NOTE | 2021-01-01 11:25 | RAD_ITS ---
STUDY: X-RAY - RIGHT KNEE REASON FOR EXAM: Postop right total knee arthroplasty. TECHNIQUE: 2 view(s) of the knee. COMPARISON: Radiographs 12/14/2020. FINDINGS: There is a right total knee arthroplasty without evidence of complication. There is postoperative gas in the soft tissues and overlying skin apolinar. RAD/Knee 1 or 2 Views IMPRESSION: Uncomplicated right total knee arthroplasty. Electronically Signed: All Beltran MD at 12:08 EDT Tel , Service support ,
[2021-01-01 11:35] LABS: Bedside Glucose 97 mg/dL (70-110)
[2021-01-01] MEDS: Cefazolin 1 GM/50 ML BAG IV ×2 (12:00→21:08)
[2021-01-01] MEDS: oxyCODONE 5 MG Tablet 2.5 MG PO ×2 (13:37→21:08)
[2021-01-01] MEDS: Metoprolol Tartrate 25 MG Tablet 12.5 MG PO (21:08)
[2021-01-01] MEDS: Magnesium Chloride 64 MG Delay Rel.Tablet 128 MG PO (21:10)
[2021-01-01] MEDS: Senna/Docusate Sodium 1 Tablet 2 TABLET PO (21:10)
[2021-01-01] MEDS: Gabapentin 100 MG Capsule 200 MG PO (21:10)
[2021-01-02] VITALS (8 sets, daily range): BP systolic 109–129; BP diastolic 48–70; PULSE 74–84; RESP 17–18; TEMP 36.2–36.8; O2SAT 95–96
[2021-01-02] MEDS: Acetaminophen 500 MG Tablet 1000 MG PO ×4 (05:11→23:14)
[2021-01-02] MEDS: Cefazolin 1 GM/50 ML BAG IV (05:13)
[2021-01-02] MEDS: oxyCODONE 5 MG Tablet 2.5 MG PO (06:10)
[2021-01-02] MEDS: APIXABAN 2.5 MG TABLET PO ×2 (06:19→18:04)
[2021-01-02 06:45] LABS: Hematocrit 26.1 % (37-47); Hemoglobin 8.2 g/dL (12.0-15.0); Mean Corp Hgb Conc 31.4 g/dL (32-36); Mean Corpuscular Hgb 29.6 pg (27.0-32.0); Mean Corpuscular Volume 94.2 fL (81-99); Mean Platelet Vol. 9.1 fl (6.2-12.0); Platelet Count 292 K/mm3 (150-450); RBC Distribution Width CV 13.2 % (11.6-14.6); RBC Distribution Width SD 45.6 fl (35.1-43.9); Red Blood Count 2.77 M/mm3 (4.2-5.4); White Blood Count 10.2 K/mm3 (4.4-11.0)
[2021-01-02 07:10] LABS: Anion Gap 0 (5-15); BUN 12 mg/dL (7-18); BUN/Creat Ratio 16.7 RATIO (10-20); Calcium,Total 8.4 mg/dL (8.5-10.1); Chloride 108 mmol/L (98-107); Creatinine, Serum 0.72 mg/dL (0.55-1.02); EST Glomerular Filtration Rate 83 mL/min (>60); Est Glom Filt Rate - Afr Amer 101 mL/min (>60); Estimated Creatinine Clearance 38.35 ml/min; Glucose 134 mg/dL (74-106); Potassium 4.2 mmol/L (3.5-5.1); Sodium Level 138 mmol/L (136-145)
--- NOTE | 2021-01-02 07:56 | DCINST_ITS ---
Discharge Diet: No Restrictions Weight Bearing Status: Weight bearing as tolerated Keep extremity elevated above heart level: Operative Extremity Call your doctor if you observe: Shortness of breath, Chest pain, Uncontrolled pain Additional Instructions: Ice and elevate one week while not ambulating. Ambulation is encouraged. Weightbearing as tolerated. Use assistive devise for stability. Encourage FULL knee extension and flexion 1 time EVERY time you get up and down and MULTIPLE times per day. No showering 72 hours after surgery. Begin showering postop day #3. Remove the dressing prior to shower and gently wash with warm water and antibacterial soap then pat dry and place abdominal pad (or plain gauze) and VAN hose over top. This is to be done daily. Do not submerge for 3 weeks. If not showering daily after the initial 72 hours then you must clean incision and change dressing daily. Do not allow animals near the incision area. Keep clean. Follow anticoagulation recommendations as prescribed. Do not take any NSAIDs while on blood thinner. Do not take any additional narcotic pain medication other than what was prescribed on you surgery day without discussing with physician. Start physical therapy. If you are not currently scheduled for physical therapy or you are unsure of appointment time please call office [facility] to arrange. Call Dr. Foster with any concerns. Allergies/Adverse Reactions: Allergies cigarette smoke Allergy (Intermediate, Verified 12/20/20 08:50) difficulty breathing latex Adverse Reaction (Mild, Verified 12/20/20 08:50) Skin irritation, and skin tearing hydrocodone [From [place]] Adverse Reaction (Verified 12/20/20 09:00) suicidal oxycodone Adverse Reaction (Verified 12/20/20 09:00) flu-like symptoms tramadol Adverse Reaction (Verified 12/20/20 09:00) suicidal seasonal allergies Allergy (Uncoded 12/20/20 08:50) sinus Medications to take at Discharge Lactobacillus acidophilus 1 cap PO QDAY 12/07/17 cholecalciferol (vitamin D3) 1,250 mcg (50,000 unit) capsule 50,000 unit PO QMONTH cap 12/08/17 gabapentin 300 mg capsule 200 mg PO QHS cap 12/14/18 cinnamon bark-chromium picolinate 500 mg-100 mcg capsule 1 cap PO DAILY 12/13/19 garlic 1,000 mg capsule 1,000 mg PO DAILY cap 03/24/20 glucosamine-chondroitin 250 mg-200 mg tablet 1 tablet PO DAILY tablet 12/14/20 vitamin B complex 1 cap PO DAILY 12/14/20 Ascorbic Acid [Vitamin C] 500 mg PO DAILY@0800 12/20/20 Magnesium Oxide [Magnesium] 250 mg PO BID 12/20/20 Metoprolol Tartrate 12.5 mg PO BID 12/20/20 Ubidecarenone [Coq-10] 100 mg PO DAILY 12/20/20 Acetaminophen [Tylenol] 1,000 mg PO Q8 #100 tablet 01/02/21 Apixaban [Eliquis] 2.5 mg PO 0700,1900 #28 tablet 01/02/21 Oxycodone [Oxyir] 2.5 mg PO Q4H PRN PRN #40 tablet 01/02/21 The following prescriptions were given: Apixaban [Eliquis] 2.5 mg PO 0700,1900 #28 tablet Transmission Status: Pending to [facility] Oxycodone [Oxyir] 2.5 mg PO Q4H PRN PRN #40 tablet PRN Reason: Pain Score 4-10 Transmission Status: Sent to [facility] Acetaminophen [Tylenol] 1,000 mg PO Q8 #100 tablet Transmission Status: Pending to [facility] Orders to be completed after discharge: Type & Screen - PAT ONLY Time Frame: 12/24/20, Facility: [facility], Location: Laboratory Primary Care Physician: Charisma Healy MD [Primary Care Provider] - Test Results: Test results from this visit will be discussed in further detail at your follow- up appointment, if applicable. Please Follow Up With: Jignesh Foster DO When: 2 weeks
[2021-01-02] MEDS: Magnesium Chloride 64 MG Delay Rel.Tablet 128 MG PO ×2 (09:21→23:13)
[2021-01-02] MEDS: Ascorbic Acid 500 MG Tablet PO (09:21)
[2021-01-02] MEDS: Metoprolol Tartrate 25 MG Tablet 12.5 MG PO ×2 (09:21→23:16)
--- NOTE | 2021-01-02 11:30 | CASEMGMT ---
Addendum entered by Radha Lares 01/02/21 14:04: 1310: Per pt's daughter, Bree, pt has voiced to her she is having difficulty w/pain mgmt and is stating she wishes now that she was going somewhere instead of home. RN CM to room to talk with pt. Pt sitting up in recliner chair, tearful. in room visiting. Both pt and state they feel pt should go somewhere for therapy prior to returning home. SHREYAS, Zina Ku made aware. Per Rosangela, pt is nauseous and continues w/ difficulty with pain mgmt. She has notified Dr Foster and discharge has been cancelled. FWW has already been delivered to pt's room. Call placed to [facility] and they were made aware discharge has been cancelled and that pt may be going to SNF or [facility] @ discharge. They state they will f/u w/CM tomorrow morning re: discharge plan and will come pick pack worker FWW if pt is not discharging home. Original Note: RN CM TANK FARM GAUGER CM to room to meet with patient for initial transition planning/care coordination assessment. THALIA GILMORE introduced self and role at [facility]. Pt voices understanding and consents to assessment at this time. Pt resting in bed in no distress at this time. Pt is A/O at this time and answers all questions appropriately. Care providers, pharmacy, and demographics verified/updated at this time. PCP: Dr Healy Specialists:Dr Foster--orthopedic, Dr Hutchison-pain mgmt, Dr Chavez-cardiology Preferred Pharmacy: [facility] Retail Insurance: [facility], MMO Prescription Benefit: Yes Living Will/HPOA: Has both LW and Healthcare POA, who is her , Ozzy LNOK: , Ozzy. Dtr, Yany Living Arrangements: Lives w/her , Ozzy in one-story home w/1 step to enter. Was independent prior to surgery. Transportation: Pt, DME: States has the following DME: shower chair, rails/grab bars, cane, walker, W/C, dividing machine operator, glucometer. Per therapy, pt's walker is bent and they recommend a new walker for pt. Pt obtained the current walker she has from a [employer] store. THALIA GILMORE discussed a new walker w/pt and she is agreeable. Discussed options of local DME co's and she states [employer]. Script for FWW obtained from Dr Stone and faxed to [facility]. Call placed to Yan @ [facility] and he was made aware pt is discharging home today. [employer] will deliver walker to pt's room. Pt states no need for further DME at this time. HHC/SNF: No history of either. Pt states she wishes to return home w/OP therapy @ [facility]. She states she has an appt this Thursday. Pt voices to this RN CM that she feels sick when taking Oxycodone and requesting something different to take when she goes home. Rosangela, RN, made aware and will address w/Dr Foster. CM to follow for any further discharge planning/needs. Pt voices no further concerns/needs at this time. Advised pt to ask for CM if any further questions/concerns/needs arise. Voices understanding. PLAN: Home w/OP therapy. [employer] to deliver FWW to pt's room today prior to discharge. Mary ROSS RN CM
--- NOTE | 2021-01-02 12:02 | PHA.DC.MC ---
Pharmacy Service has performed discharge medication reconciliation and counseling for this patient. 1. ACETAMINOPHEN 1000MG PO Q8H 2. APIXABAN 2.5MG PO BID X 14 DAYS 3. OXYCODONE 2.5-5MG PO Q4H PRN PAIN 4-10 The patient's discharge medication list was reviewed for discrepancies and discrepancies were resolved. Home Medications Lactobacillus acidophilus 1 cap PO QDAY 12/07/17 cholecalciferol (vitamin D3) 1,250 mcg (50,000 unit) capsule 50,000 unit PO QMONTH cap 12/08/17 gabapentin 300 mg capsule 200 mg PO QHS cap 12/14/18 cinnamon bark-chromium picolinate 500 mg-100 mcg capsule 1 cap PO DAILY 12/13/19 garlic 1,000 mg capsule 1,000 mg PO DAILY cap 12/13/19 glucosamine-chondroitin 250 mg-200 mg tablet 1 tablet PO DAILY tablet 12/14/20 vitamin B complex 1 cap PO DAILY 12/14/20 Ascorbic Acid [Vitamin C] 500 mg PO DAILY@0800 12/20/20 Magnesium Oxide [Magnesium] 250 mg PO BID 12/20/20 Metoprolol Tartrate 12.5 mg PO BID 12/20/20 Ubidecarenone [Coq-10] 100 mg PO DAILY 12/20/20 Acetaminophen [Tylenol] 1,000 mg PO Q8 #100 tablet 01/02/21 Apixaban [Eliquis] 2.5 mg PO 0700,1900 #28 tablet 01/02/21 Oxycodone [Oxyir] 2.5 mg PO Q4H PRN PRN #40 tablet 01/02/21 The patient was counseled on the following discharge medications and changes in medications for homegoing were reviewed. The Reason for Use, instructions for use, and potential side effects were reviewed for all new medications. The patient's questions regarding all of their medications were answered. The patient was able to verbally demonstrate an understanding of their discharge medications.
--- NOTE | 2021-01-02 13:43 | CASEMGMT ---
Social Work Note SW updated that pt's discharged will be cancelled today. Pt also requesting [facility] at discharge now. SW placed call to [facility] with [facility] and provided referral. [facility] to review referral. SW in to speak with pt. Pt's Leno present in room. SW introduced self and role at [facility]. Pt is alert and orientated. Pt confirms she would like to discharge to [facility]. Patient was provided a list of (SNF and IRF) providers including quality and resource use data and consistent with the patient?s preferred geographic region, medical needs, and insurance network. Pt confirms preferred provider is [facility]. SW explained that this worker has made referral to [facility], SW is just waiting for approval. SW informed pt that once this worker knows if [facility] is able to accept, SW will let pt know. Pt states understanding. Plan: [facility] pending acceptance Zina Ku METALIZING MACHINE OPERATOR, HEART SPECIALIST
[2021-01-02] MEDS: Ondansetron ODT 4 MG Tablet PO (14:11)
[2021-01-02] MEDS: Senna/Docusate Sodium 1 Tablet 2 TABLET PO (23:14)
[2021-01-02] MEDS: Gabapentin 100 MG Capsule 200 MG PO (23:14)
[2021-01-03 02:29] VITALS: BP 118/67; PULSE 73; RESP 17; TEMP 36.7; O2SAT 93
[2021-01-03] MEDS: APIXABAN 2.5 MG TABLET PO (06:26)
[2021-01-03] MEDS: Acetaminophen 500 MG Tablet 1000 MG PO ×2 (06:26→11:50)
--- NOTE | 2021-01-03 07:12 | PCM.DC.SUM ---
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 Patient underwent the aformentioned procedure on the admission date without any intraoperative complications. Patient did receive pre-and postoperative antibiotics which were discontinued within 23 hours postoperatively. Patient did receive [spinal anesthesia as well as an adductor canal block postoperatively]. pain was controlled with IV and transition to p.o. pain medication she does have severe nausea with oxycodone with therefore changed her to Ultram in between Tylenol even though she has a history of suicidal ideation with higher doses we will attempt to use a minimal dose and this was counseled with the patient and patient she feels comfortable with this patient will be discharged rehab with tramadol and Eliquis and will continue Tylenol as well. Patient had minimal intraoperative blood loss and 2gm tranexamic acid was administered there was no need for postoperative blood transfusion Patients vital signs remained stable. Patient was started on both mechanical and chemical DVT per prophylaxis postoperatively in the form of SCDs VAN hose and [Eliquis 2.5 mg twice daily for which she will continue for 2 additional weeks post hospital discharge]. thigh high van hose placed over top of the meplix silver dressing. This should be removed 72 hrs post operatively and showering begun daily at that time with warm water and antibacterial soap. not to submerge for 3 weeks. To change dressing daily after first dressing change. Patient will follow-up in the office in 2 weeks. No intrahospital complications. - Physical Exam Vitals/I&O's: Vital Signs Temp Pulse Resp BP Pulse Ox 98.1 F 73 17 118/67 93 01/03/21 02:29 01/03/21 02:29 01/03/21 02:29 01/03/21 02:29 01/03/21 02:29 Oxygen Flow Rate (L/min) 6 Oxygen Delivery Method Room Air Weight: 136 lb 14.513 oz Body Mass Index (BMI) 24.2 Intake and Output for Last 24 Hours 01/01/21 01/02/21 01/03/21 23:59 23:59 23:59 Intake Total 4 / 4 1210 / 1210 950 / 950 Balance 2533 / 4 1210 / 1210 950 / 950 General: Alert, Oriented x3, Cooperative, No apparent distress Extremities: - - VAN hose removed appropriate amount of swelling considering surgery neurovascular intact compartments soft dressing clean dry and intact Current Medications Acetaminophen (Acetaminophen 500 Mg Tablet) 1,000 mg PO Q6 [facility] Last Admin: 01/03/21 06:26 Dose: 1,000 mg Documented by: Apixaban (Apixaban 2.5 Mg Tablet) 2.5 mg PO 0700,1900 [facility] Last Admin: 01/03/21 06:26 Dose: 2.5 mg Documented by: Ascorbic Acid (Ascorbic Acid 500 Mg Tablet) 500 mg PO DAILY@0800 [facility] Last Admin: 01/02/21 09:21 Dose: 500 mg Documented by: Ergocalciferol (Ergocalciferol 50,000 Unit Capsule) 50,000 unit PO QMONTH [facility] Gabapentin (Gabapentin 100 Mg Capsule) 200 mg PO QHS [facility] Last Admin: 01/02/21 23:14 Dose: 200 mg Documented by: Lactobacillus Acidophilus (Lactobacillus Acidophilus) 1 tablet PO DAILY [facility] Last Admin: 01/02/21 09:21 Dose: 1 tablet Documented by: Magnesium Chloride (Magnesium Chloride 64 Mg Delay Rel.Tablet) 128 mg PO BID [facility] Last Admin: 01/02/21 23:13 Dose: 128 mg Documented by: Metoprolol Tartrate (Metoprolol Tartrate 25 Mg Tablet) 12.5 mg PO BID [facility] Last Admin: 01/02/21 23:16 Dose: 12.5 mg Documented by: Ondansetron HCl (Ondansetron Odt 4 Mg Tablet) 4 mg PO Q6H PRN PRN PRN Reason: NAUSEA Last Admin: 01/02/21 14:11 Dose: 4 mg Documented by: Senna/Docusate Sodium (Senna/Docusate Sodium 1 Tablet) 2 tablet PO BID [facility] Last Admin: 01/02/21 23:14 Dose: 2 tablet Documented by: Tramadol HCl (Tramadol 50 Mg Tablet) 50 mg PO Q6H PRN PRN PRN Reason: Pain Score 6-10 Discharge Diet: No Restrictions Weight Bearing Status: Weight bearing as tolerated Keep extremity elevated above heart level: Operative Extremity Call your doctor if you observe: Shortness of breath, Chest pain, Uncontrolled pain Home Medications: Medications to take at Discharge Lactobacillus acidophilus 1 cap PO QDAY 12/07/17 cholecalciferol (vitamin D3) 1,250 mcg (50,000 unit) capsule 50,000 unit PO QMONTH cap 12/08/17 gabapentin 300 mg capsule 200 mg PO QHS cap 12/14/18 cinnamon bark-chromium picolinate 500 mg-100 mcg capsule 1 cap PO DAILY 12/13/19 garlic 1,000 mg capsule 1,000 mg PO DAILY cap 12/13/19 glucosamine-chondroitin 250 mg-200 mg tablet 1 tablet PO DAILY tablet 12/14/20 vitamin B complex 1 cap PO DAILY 12/14/20 Ascorbic Acid [Vitamin C] 500 mg PO DAILY@0800 12/20/20 Magnesium Oxide [Magnesium] 250 mg PO BID 12/20/20 Metoprolol Tartrate 12.5 mg PO BID 12/20/20 Ubidecarenone [Coq-10] 100 mg PO DAILY 12/20/20 Acetaminophen [Tylenol] 1,000 mg PO Q8 #100 tablet 01/02/21 Apixaban [Eliquis] 2.5 mg PO 0700,1900 #28 tablet 01/02/21 traMADol [Ultram] 50 mg PO Q6H PRN PRN #60 tablet 01/03/21 Following Prescriptions Were Given to Patient: Apixaban [Eliquis] 2.5 mg PO 0700,1900 #28 tablet Transmission Status: Received by [facility] Acetaminophen [Tylenol] 1,000 mg PO Q8 #100 tablet Transmission Status: Received by [facility] traMADol [Ultram] 50 mg PO Q6H PRN PRN #60 tablet PRN Reason: Pain Score 6-10 Prescription Printed Other Amb Orders: Type & Screen - PAT ONLY Time Frame: 12/24/20, Facility: [facility], Location: Laboratory Primary Care Physician: Charisma Healy MD [Primary Care Provider] - Please Follow Up With: Jignesh Foster DO When: 2 weeks Additional Instructions: Ice and elevate one week while not ambulating. Ambulation is encouraged. Weightbearing as tolerated. Use assistive devise for stability. Encourage FULL knee extension and flexion 1 time EVERY time you get up and down and MULTIPLE times per day. No showering 72 hours after surgery. Begin showering postop day #3. Remove the dressing prior to shower and gently wash with warm water and antibacterial soap then pat dry and place abdominal pad (or plain gauze) and VAN hose over top. This is to be done daily. Do not submerge for 3 weeks. If not showering daily after the initial 72 hours then you must clean incision and change dressing daily. Do not allow animals near the incision area. Keep clean. Follow anticoagulation recommendations as prescribed. Do not take any NSAIDs while on blood thinner. Do not take any additional narcotic pain medication other than what was prescribed on you surgery day without discussing with physician. Start physical therapy. If you are not currently scheduled for physical therapy or you are unsure of appointment time please call office [facility] to arrange. Call Dr. Foster with any concerns. Medical Necessity - Tobacco Use Smoking Status: Never smoker Tobacco Use: Non-smoker Meaningful Use Info Meaningful Use Diagnoses (Choose all that apply): None applicable
--- NOTE | 2021-01-03 08:48 | CASEMGMT ---
Addendum entered by Zina Ku 01/03/21 09:28: SW updated pt on acceptance to [facility] and discharge to [facility] today. Pt states understanding. Plan: [facility] today AT[facility]IO Reilly Addendum entered by Zina Ku 01/03/21 09:18: SW received call from Ute with [facility] stating [facility] is able to accept pt today. Original Note: Social Work Note SW received message from Ute with [facility] stating referral is still waiting to be approved. Ute to call this worker once a decision is made regarding referral. Plan: [facility] pending acceptance ATIL[facility] Reilly
[2021-01-03 09:27] VITALS: BP 117/71; PULSE 100; RESP 20; TEMP 36.8; O2SAT 94
[2021-01-03 09:31] VITALS: PULSE 100
[2021-01-03] MEDS: Senna/Docusate Sodium 1 Tablet 2 TABLET PO (09:40)
[2021-01-03] MEDS: Magnesium Chloride 64 MG Delay Rel.Tablet 128 MG PO (09:40)
[2021-01-03 09:41] VITALS: PULSE 100
[2021-01-03] MEDS: Metoprolol Tartrate 25 MG Tablet 12.5 MG PO (09:41)
[2021-01-03] MEDS: Ascorbic Acid 500 MG Tablet PO (09:42)
--- NOTE | 2021-01-03 10:07 | CASEMGMT ---
RN CM notified that pt will be dc'd to the Rehab unit at [facility]. TC to Carmen at [facility] for pickup of walker that had been delivered. TC to [facility] [employer] [facility] to make aware pt will not be going home and to cancel appt.
[2021-01-03 14:23] VITALS: BP 123/74; PULSE 86; RESP 16; TEMP 37.1; O2SAT 94
--- NOTE | 2021-01-03 14:34 | NURSING ---
report called to Magalis VÁSQUEZ.
== END 2021-01-03 14:58 | DRG 470 ==
LOC: SDC 11:23 → MS3 11:23
PROVIDERS: Anesthesiology; Admitting Provider Orthopaedic Surgery; PCP Internal Medicine; Referring Provider Orthopaedic Surgery; Visit Provider Orthopaedic Surgery
PROC: 0SRC0JZ Replacement of Right Knee Joint with Synthetic Substitute, Open Approach (ICD-10-PCS; CPT 27447; principal; 2021-01-01 07:15)
DX: M17.11 Unilateral primary osteoarthritis, right knee (principal); I50.30 Unspecified diastolic (congestive) heart failure; D62 Acute posthemorrhagic anemia; M21.161 Varus deformity, not elsewhere classified, right knee; M24.561 Contracture, right knee; G89.29 Other chronic pain; I11.0 Hypertensive heart disease with heart failure; I44.7 Left bundle-branch block, unspecified; K58.9 Irritable bowel syndrome, unspecified; Z79.01 Long term (current) use of anticoagulants; Z79.899 Other long term (current) drug therapy
CPT/HCPCS: 36415; 73560; 80048; 82962; 82985; 83735; 85025; 85027; 85610; 85730; 86850; 86870; 86900; 86901; 86902; 86905; 86920; 86921; 86922; 87081; 93005; 97110; 97116; 97162; 97166; 97530; 97535; 99251; C1776; J7120; G0463; J0702

== ENCOUNTER 2021-01-03 15:05 | Inpatient (IN) | payer MEDICARE, OTHER, SELFPAY ==
[2021-01-01 13:04] VITALS: BMI 24.2
[2021-01-03 15:17] VITALS: BP 127/64; PULSE 81; RESP 16; TEMP 37.2; O2SAT 98; BMI 24.0
--- NOTE | 2021-01-03 16:19 | HP.PCM_ITS ---
Problem List (1) Spinal stenosis Status: Chronic (2) Osteoarthritis Status: Chronic Qualifiers: Osteoarthritis location: multiple joints Osteoarthritis type: primary Qualified Code(s): M89.49 - Other hypertrophic osteoarthropathy, multiple sites (3) History of total knee arthroplasty Status: Acute Qualifiers: Laterality: right Qualified Code(s): Z96.651 - Presence of right artificial knee joint Comment: 01/01/[address] Foster (4) Essential hypertension Status: Chronic (5) Elevated coronary artery calcium score Status: Acute (6) Palpitations Status: Chronic (7) Left bundle branch block Status: Chronic (8) Acute blood loss anemia Status: Acute Comment: Due to blood loss at the time of right total knee replacement on 01/01/2021 History of Present Illness Date of Admission: 01/03/21 Chief Complaint: Physical debility secondary to right total knee arthroplasty by Dr. Jignesh Reed on 01/01/2021 Mark Anthony Cortes is a 80 year old F with a past medical history of lumbar canal stenosis, osteoarthritis, hypertension, left bundle branch block and elevated coronary artery calcium score who underwent a right total knee arthroplasty on 01/01/[address] Foster. She was admitted to the inpatient rehab unit at [facility] on 01/03/2021 for greater than 3 hours of therapy daily to restore her at or near her prior level of function/ independence. The EMR from the acute hospital stay was reviewed. The hemoglobin dropped from 12.1 on 12/25/2019 1-8.2 postoperatively. BMP is unremarkable with the exception of a mildly increased fasting blood sugar at 134. She had a hemoglobin A1c in 2014 that was high normal at 5.8%. [] Past Medical History Past Medical History (Chronic Problems): Chronic Problems (Last Reviewed 01/03/21 @ 16:[address] Gina Marsh DO) Spinal stenosis (Chronic) Osteoarthritis (Chronic) Essential hypertension (Chronic) Palpitations (Chronic) Left bundle branch block (Chronic) Medical History: Medical History (Last Reviewed 01/03/21 @ 16:[address] Gina Marsh DO) Essential hypertension (Chronic) I10 Left bundle branch block (Chronic) I44.7 h/o back surgery [facility], 06/2020 Spinal stenosis M48.00 Dizziness R42 Allergies cigarette smoke Allergy (Intermediate, Verified 12/20/20 08:50) difficulty breathing latex Adverse Reaction (Mild, Verified 12/20/20 08:50) Skin irritation, and skin tearing hydrocodone [From [place]] Adverse Reaction (Verified 12/20/20 09:00) suicidal oxycodone Adverse Reaction (Verified 12/20/20 09:00) flu-like symptoms tramadol Adverse Reaction (Verified 12/20/20 09:00) suicidal seasonal allergies Allergy (Uncoded 12/20/20 08:50) sinus Home Medications: Ambulatory Orders Medication Instructions Recorded Lactobacillus acidophilus 1 cap PO QDAY 12/07/17 cholecalciferol (vitamin D3) 1,250 50,000 unit PO QMONTH cap 12/08/17 mcg (50,000 unit) capsule gabapentin 300 mg capsule 200 mg PO QHS cap 12/14/18 cinnamon bark-chromium picolinate 1 cap PO DAILY 12/13/19 500 mg-100 mcg capsule garlic 1,000 mg capsule 1,000 mg PO DAILY cap 12/13/19 glucosamine-chondroitin 250 mg-200 1 tablet PO DAILY tablet 12/14/20 mg tablet vitamin B complex 1 cap PO DAILY 12/14/20 Ascorbic Acid [Vitamin C] 500 mg PO DAILY@0800 12/20/20 Magnesium Oxide [Magnesium] 250 mg PO BID 12/20/20 Metoprolol Tartrate 12.5 mg PO BID 12/20/20 Ubidecarenone [Coq-10] 100 mg PO DAILY 12/20/20 Acetaminophen [Tylenol] 1,000 mg PO Q8 01/03/21 Apixaban [Eliquis] 2.5 mg PO 0700,1900 01/03/21 Surgical History: Surgical History (Last Reviewed 01/03/21 @ 16:[address] Gina Marsh, DO) History of carpal tunnel release of both wrists Z98.890 History of lateral meniscus repair of right knee Z98.890 Hx of cataract surgery Z98.49 2018 S/P trigger finger release Z98.890 Surgical History: - - Lumbar fusion in 2019 Psychiatric History: No pertinent psych hx GASKET WINDER History: No pertinent GASKET WINDER history Lives: Spouse/ Significant Other Smoking Status: Never smoker Tobacco Use: Non-smoker Alcohol: None Drugs: None - *Family History Maternal Family History: Family History (Last Reviewed 01/03/21 @ 16:[address] Gina Marsh DO) Father Negative for ASCVD Colon cancer Mother Negative for ASCVD Colon cancer Brother Lung cancer Sister Bile duct cancer Lung cancer Review of Systems Constitutional: Denies: Anorexia, Chills, Fever, Weight Change Eyes: Denies: Vision Change HEENT: Denies: Difficulty Hearing, Difficulty Swallowing, Head Aches, Nasal Congestion, Sinus Congestion, Sinus Drainage, Sore Throat Cardiovascular: Reports: Light Headedness - when standing.. Denies: Chest Pain, Chest Tightness, Edema, Palpitations Respiratory: Denies: Cough, Shortness of breath at rest, Sputum production Gastrointestinal: Denies: Abdominal Pain, Constipation, Diarrhea, Nausea, Vomiting Genitourinary: Denies: Dysuria Musculoskeletal: Reports: Joint Pain - R knee due to recent R TKA. Denies: Join t Tenderness Skin: Reports: Wounds - R knee from recent R TKA. Denies: Jaundice, Lesions, Rash Neurological: Denies: Balance problems, Slurred speech, Confusion, Focal weakness, Headaches, Numbness, Tingling, Tremor, Seizures Psychiatric: Denies: Anxiety, Depression, Homicidal Ideations, Suicidal Ideations Hematologic/ Lymphatic: Denies: Easy Bruising, Easy Bleeding, Hx of blood clot VTE Information - Inpt Only VTE Present on Admission: No VTE Mechan Device Prophylaxis: Thigh High VAN Hose VTE Pharm Prophylaxis ordered?: Yes Patient Problems: Active and Suspected Problems (Last Reviewed 01/03/21 @ 16:[address] Gina Marsh DO) History of total knee arthroplasty (Acute) 01/01/[address] Foster Acute blood loss anemia (Acute) Due to blood loss at the time of right total knee replacement on 01/01/2021 Elevated coronary artery calcium score (Acute) - Physical Exam Vitals/I&O's: Vital Signs Temp Pulse Resp BP Pulse Ox 99.0 F 81 16 127/64 H 98 01/03/21 15:17 01/03/21 15:17 01/03/21 15:17 01/03/21 15:17 01/03/21 15:17 Oxygen Delivery Method Room Air Weight: 135 lb 5.821 oz Body Mass Index (BMI) 24.0 General: Alert, Oriented x3, Cooperative, Well developed, Well nourished, - - appears comfortable sitting in the recliner at the bedside. She looks younger than her stated age HEENT: Atraumatic, PERRLA, EOMI, Normocephalic Oral: No Gingival or Mucosal Lesions/ Ulcerations, Dry Mucosa Neck: Supple, No JVD, Negative Carotid Bruits, No Nuchal Rigidity, Trachea Midline, - - Carotids have brisk upstroke and good pulse volume bilaterally. Lungs: Clear to auscultation, Normal air movement, No rhonchi, No wheeze, No rales Cardiovascular: Regular rate, Regular Rhythm, Normal S1, Normal S2, No murmurs, No rub noted, No Gallop Abdomen: Bowel Sounds Present, Soft, Non Tender, Non-Distended, - - No guarding with palpation Extremities: No clubbing, No cyanosis, No edema, Capillary Refill Less than 3 Seconds, No Calf Tenderness, - - she has joint deformities of her hands consistent with OA. 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 No red swollen joints. No FH of RA or SLE. Mother and sister also had arthrtis in their hands but Cache's are worse. Skin: No rashes, No breakdown, Incision - Over the right knee-currently bandaged Musculoskeletal: No Tenderness to Palpation of Joints or Extremities, No Muscle Wasting, Arthritic Changes Neurological: Cranial nerves II-XII grossly intact, Neuro grossly intact Psych/Mental Status: Normal Affect, Appropriate Current Medications Acetaminophen (Acetaminophen 500 Mg Tablet) 1,000 mg PO Q8 [facility] Apixaban (Apixaban 2.5 Mg Tablet) 2.5 mg PO 0700,1900 [facility] Ascorbic Acid (Ascorbic Acid 500 Mg Tablet) 500 mg PO DAILY@0800 [facility] Bisacodyl (Bisacodyl 10 Mg Suppository) 10 mg RC .PRN X 1 PRN PRN Reason: Constipation Ergocalciferol (Ergocalciferol 50,000 Unit Capsule) 50,000 unit PO QMONTH [facility] Gabapentin (Gabapentin 100 Mg Capsule) 200 mg PO QHS [facility] Lactobacillus Acidophilus (Lactobacillus Acidophilus) 1 tablet PO DAILY [facility] Magnesium Chloride (Magnesium Chloride 64 Mg Delay Rel.Tablet) 64 mg PO BID [facility] Magnesium Hydroxide (Magnesium Hydroxide 30 Ml Udc) 30 ml PO .PRN X 1 PRN PRN Reason: Constipation Metoprolol Tartrate (Metoprolol Tartrate 25 Mg Tablet) 12.5 mg PO BID [facility] Multivitamins (Vitamin B Comp W-C Capsule) 1 capsule PO DAILYCM [facility] Senna/Docusate Sodium (Senna/Docusate Sodium 1 Tablet) 2 tablet PO BID [facility] Assessment/Plan All Active Problems (Last Reviewed 01/03/21 @ 16:[address] Gina Marsh, DO) History of total knee arthroplasty (Acute) Acute blood loss anemia (Acute) Elevated coronary artery calcium score (Acute) Impressions 1. Debility secondary to recent right total knee arthroplasty for severe osteoarthritis of the right knee 2. Acute blood loss anemia 3. Intolerant of narcotics due to encephalopathy and nausea 4. Hypertension 5. Left bundle branch block with a negative W/U for CAD but in increased coronary calcium score. 6. hx of spinal stenosis PLAN PT for gait stability OT for ADL's ST for evaluation Analgesics as needed Bowel protocol Fall precautions Assess for Anxiety/Depression GI prophylaxis not necessary. Patient denies abdominal pain/nausea/vomiting and has no history of peptic ulcer disease. DVT prophylaxis with apixaban 2.5 mg p.o. twice daily Follow up with Dr. Foster and Dr. Healy following DC from Rehab Recheck the HGB in the AM Inpatient E&M: [id number] Init Hosp L2
--- NOTE | 2021-01-03 16:28 | REHABEVAL_ITS ---
Admission Information Primary Diagnosis:: Physical debility secondary to recent right total knee arthroplasty by Dr. Jignesh Reed on 01/01/2021 Status Changes from Prescreening?: No changes Identified Actual Problem List:: Skin Intergrity, Pain, ALteration in Cmfrt, Alteration in Sleep, Mobility Impaired, Diabetes, Hyperglycemia, BP, Hypertension, Alteration- Leisure Activ. Potential Problem List:: DVT, Bleeding, Infection, UTI, Falls, Skin Integrity, Depression Risk of Complications DVT: VAN Zuniga, - - Eliquis 2.5 mg p.o. twice daily Bleeding: Monitor Lab Values, Nursing to Teach Precautions for anti-coagulation therapy., Wound, if applicable, to be assessed every shift., Stroke patients assessed for lethargy or change in status. Infection: Clinical Staff to Monitor for S/S of infection:, S/S of infection include fever, redness, warmth, etc. Urinary Tract Infection: Monitor for frequency, burning, discomfort, or incontinence., Nursing will obtain urine sample for urinalysis and C&S when ordered. Falls: Patient will be evaluated for Fall Precautions, Patient will be placed on Fall Precautions as indicated per protocol. Skin Breakdown: Nursing will assess skin daily using assessment tool., Nursing will place on Skin Breakdown Precautions as indicated. Pain: Clinical staff will assess patient's pain level per protocol., Medications will be given, if needed, and the pain level reassessed., Other methods: Massage, distraction, decrease stimulus, etc. used PRN. Plan of Care Patient requires physician specializing in physical medicine and rehab oversight to provide close medical supervision of rehab issues including: Pain Management, Sleep Problems, Bowel and Bladder, Medical and co-morbidity Management, DVT prophylaxis, Rehabilitation Leadership, Coordination of treatment team Patient needs Physical Therapy: For a minimum of 1 hour, At least 5 out of 7 days Patient needs Physical Therapy to improve:: Mobility, Mobility, Mobility, Strengthening, Transfers, Stretching, ROM, Endurance, Stairs, Gait, Balance Patient needs Occupational Therapy: For a minimum of 1 hour, At least 5 out of 7 days Patient needs Occupational Therapy to improve ADL's incl.: Eating, Grooming, Bathing, Dressing, Toileting, Toilet transfers, Community Reintegration, Higher functioning activities, Household tasks, Adaptive Equipment, Splinting, Other activities as determined Patient requires 24/ Rehabilitation Nursing for: Pain Issues, Identifying and preventing risk factors, Monitoring and reporting current medical conditions, Assisting with ambulation, transfer, and all ADL's, Teaching patients about disease process and medications, Family teaching, Providing safe environment, Bowel and Bladder Issues, Skin integrity, Medication Management Patient needs Safety And Health Consultant/ Case Management for: Discharge Planning, Arranging Home Equipment or Services, Family Interventions Patient needs Dietary and Nutrition Services for: Adequate Nutrition, Nutritional Supplements, Nutritional Education Goals Patient will remain: free from falls, or injury at time of discharge. Patient will perform bed mobility at: MOD I level of assist. Patient will complete transfers from bed to chair at: MOD I level of assist. Patient will ambulate: with MOD I assist, - - 200 feet with a wheeled walker Patient will complete upper body dressing at: MOD I level of assist. Patient will complete lower body dressing at: MOD I level of assist. Patient will complete toileting at: MOD I level of assist. Patient will perform bathing at: MOD I level of assist. Patient will complete grooming at: MOD I level of assist. Patient will complete home management skills at: MOD I level of assist. Patient will achieve: at MOD I assist, - - For stairs with 1 handrail Patient will have pain level of: of 3 or less Patient's skin will: remain intact, free from infection. Patient will receive: adequate nutrition. Discharge Planning Pt Prognosis for Sig. Practical Improv. w/in Reasonable Time: Good Estimated Length of stay (days): 14 Anticipated D/C Destination: Home with Outpt Therapy Was Preadmission Assessment Accurate?: Yes
[2021-01-03] MEDS: Acetaminophen 500 MG Tablet 1000 MG PO (17:48)
[2021-01-03 17:55] VITALS: O2SAT 97
[2021-01-03] MEDS: APIXABAN 2.5 MG TABLET PO (18:45)
[2021-01-03 19:55] VITALS: BP 111/54; PULSE 101; RESP 16; TEMP 37.3; O2SAT 93
[2021-01-03 21:57] VITALS: BP 111/54; PULSE 101
[2021-01-03] MEDS: Metoprolol Tartrate 25 MG Tablet 12.5 MG PO (21:57)
[2021-01-03] MEDS: Magnesium Chloride 64 MG Delay Rel.Tablet PO (21:58)
[2021-01-03] MEDS: Senna/Docusate Sodium 1 Tablet 2 TABLET PO (21:59)
[2021-01-03] MEDS: Gabapentin 100 MG Capsule 200 MG PO (21:59)
[2021-01-04] MEDS: Acetaminophen 500 MG Tablet 1000 MG PO ×4 (00:25→17:48)
--- NOTE | 2021-01-04 02:12 | NURSING ---
REVIEWED AND AGREE WITH MANUFACTURING APPLICATIONS ENGINEER'S FUNCTIONAL ASSESSMENT CHARTING.
[2021-01-04] MEDS: traMADol 50 MG Tablet 25 MG PO (06:17)
[2021-01-04] MEDS: APIXABAN 2.5 MG TABLET PO ×2 (06:19→17:48)
[2021-01-04 08:04] VITALS: BP 136/74; PULSE 92; RESP 16; TEMP 37; O2SAT 94
[2021-01-04 08:12] VITALS: BP 136/74; PULSE 92
[2021-01-04] MEDS: Vitamin B Comp W-C Capsule 1 CAP PO (08:12)
[2021-01-04] MEDS: Metoprolol Tartrate 25 MG Tablet 12.5 MG PO ×2 (08:12→21:15)
[2021-01-04] MEDS: Ascorbic Acid 500 MG Tablet PO (08:12)
[2021-01-04] MEDS: Magnesium Chloride 64 MG Delay Rel.Tablet PO ×2 (08:12→21:15)
[2021-01-04 09:35] LABS: Hemoglobin 9.2 g/dL (12.0-15.0)
[2021-01-04 10:24] VITALS: O2SAT 94
[2021-01-04] MEDS: Celecoxib 100 MG Capsule PO ×2 (11:25→21:15)
[2021-01-04 19:26] VITALS: BP 128/60; PULSE 86; RESP 16; TEMP 36.6; O2SAT 97
[2021-01-04 19:51] VITALS: PULSE 98; RESP 16; O2SAT 97
[2021-01-04] MEDS: Gabapentin 100 MG Capsule 200 MG PO (21:14)
[2021-01-04 21:15] VITALS: PULSE 98
[2021-01-05 08:00] VITALS: BP 121/72; BP 132/61; BP 140/74; PULSE 106; PULSE 80; PULSE 95
[2021-01-05] MEDS: APIXABAN 2.5 MG TABLET PO ×2 (08:07→18:26)
[2021-01-05] MEDS: Vitamin B Comp W-C Capsule 1 CAP PO (08:07)
[2021-01-05] MEDS: Acetaminophen 500 MG Tablet 1000 MG PO ×4 (08:07→18:25)
[2021-01-05 08:09] VITALS: BP 130/66; PULSE 86
[2021-01-05] MEDS: Metoprolol Tartrate 25 MG Tablet 12.5 MG PO ×2 (08:09→22:24)
[2021-01-05] MEDS: Celecoxib 100 MG Capsule PO ×2 (08:11→22:26)
[2021-01-05] MEDS: Magnesium Chloride 64 MG Delay Rel.Tablet PO ×2 (08:11→22:24)
[2021-01-05] MEDS: Ascorbic Acid 500 MG Tablet PO (08:15)
[2021-01-05] MEDS: Senna/Docusate Sodium 1 Tablet 2 TABLET PO ×2 (08:17→22:23)
[2021-01-05 09:06] VITALS: BP 130/66; PULSE 86; RESP 17; TEMP 36.6; O2SAT 96
--- NOTE | 2021-01-05 14:28 | PCM.PN.BLA ---
Progress Note With Dr. Chavez's blessing she was started on Celebrex 100 mg BID for pain control however, she refused the Celebrex today. I explained that I had talked with Dr. Myers and he is agreement with using the Celebrex for a limited time post op to help with pain control since she does not tolerate narcotics. She slept well last night and she denies dysuria, CP, SOB, calf pain. She did not take the Tramadol today wither and she is c/o pain after therapy. She is agreeable to taking the Celebrex now.
[2021-01-05 19:07] VITALS: BP 131/70; PULSE 85; RESP 18; TEMP 36.5; O2SAT 100
[2021-01-05 22:24] VITALS: BP 131/70; PULSE 85
[2021-01-05] MEDS: Gabapentin 100 MG Capsule 200 MG PO (22:24)
[2021-01-06] MEDS: Acetaminophen 500 MG Tablet 1000 MG PO ×4 (00:15→18:23)
[2021-01-06] MEDS: traMADol 50 MG Tablet 25 MG PO (07:17)
[2021-01-06] MEDS: APIXABAN 2.5 MG TABLET PO ×2 (07:18→18:23)
[2021-01-06 08:00] VITALS: BP 107/71; PULSE 86; RESP 18; TEMP 36.2; O2SAT 100
[2021-01-06] MEDS: Vitamin B Comp W-C Capsule 1 CAP PO (08:15)
[2021-01-06] MEDS: Magnesium Chloride 64 MG Delay Rel.Tablet PO ×2 (08:15→21:00)
[2021-01-06] MEDS: Ascorbic Acid 500 MG Tablet PO (08:16)
[2021-01-06 08:17] VITALS: PULSE 70
[2021-01-06] MEDS: Celecoxib 100 MG Capsule PO ×2 (08:17→21:01)
[2021-01-06] MEDS: Metoprolol Tartrate 25 MG Tablet 12.5 MG PO ×2 (08:17→21:00)
[2021-01-06 19:09] VITALS: BP 128/65; PULSE 88; RESP 17; TEMP 36.4; O2SAT 98
[2021-01-06 21:00] VITALS: BP 128/65; PULSE 88
[2021-01-06] MEDS: Gabapentin 100 MG Capsule 200 MG PO (21:00)
[2021-01-07] MEDS: Acetaminophen 500 MG Tablet 1000 MG PO ×4 (00:40→21:39)
[2021-01-07] MEDS: APIXABAN 2.5 MG TABLET PO ×2 (06:38→20:11)
[2021-01-07 08:02] VITALS: PULSE 98
[2021-01-07] MEDS: Vitamin B Comp W-C Capsule 1 CAP PO (08:02)
[2021-01-07] MEDS: Ascorbic Acid 500 MG Tablet PO (08:02)
[2021-01-07] MEDS: Metoprolol Tartrate 25 MG Tablet 12.5 MG PO ×2 (08:02→21:36)
[2021-01-07] MEDS: Celecoxib 100 MG Capsule PO (08:02)
[2021-01-07] MEDS: Magnesium Chloride 64 MG Delay Rel.Tablet PO ×2 (08:03→21:37)
[2021-01-07 08:40] VITALS: BP 110/67; PULSE 98; RESP 18; TEMP 36.7; O2SAT 99
--- NOTE | 2021-01-07 09:50 | CASEMGMT ---
Social Work IDT met with patient and via conference call for Team meeting. Discussed patient's progress in therapy and nursing. Pt progressing well. Explained Medicare approved 12 days with DC 01/15. Pt will DC home with with continued therapy and any DME needs. SW to assist. Will continue to follow. LEXIE LingW
--- NOTE | 2021-01-07 11:35 | PCM.PN.BLA ---
Progress Note Niesha was seen on team rounds today. Her Leno participated by phone. Afebrile VSS Maintaining appropriate oxygen saturation on RA Oral intake is good Discussed with nursing - no problems that need addressed Reviewed the PT/OT notes Medication list reviewed. She did not sleep well last night due to pain. She has only taken 1 Tramadol since admission. She is now on Tylenol every 6 hours, Celebrex 100 mg BID and PRN Tramadol. She missed a dose of Tylenol yesterday and then had increased pain. She denies chest pain, palpitations, shortness of breath, cough, nausea/vomiting/abdominal pain, dysuria, calf pain. Alert and oriented x3, appropriate, sitting in the recliner at the bedside and looking comfortable in no apparent distress Mucous membranes are moist, no mucosal lesions Lungs-excellent air exchange and clear to auscultation Heart-regular rate and rhythm, no gallop Abdomen-soft, nontender, nondistended, normal bowel sounds The incision on the right knee is intact with no dehiscence and there is no periincisional erythema or increased warmth to touch. There is no discharge from the wound. No calf pain with a negative Homans bilaterally Mild swelling of the right ankle No rashes and no skin breakdown Impressions 1. Physical debility secondary to severe osteoarthritis of the right knee limiting ambulation with recent right total knee arthroplasty 2. Acute blood loss anemia She is currently stable. Add tramadol 25 mg p.o. at at bedtime. Change the Tylenol to 1 g every 8 hours and give it at 6, 2 and 10 Continue therapy STROKE Vital Signs/Narrative: Vital Signs Temp Pulse Resp BP Pulse Ox 01/07/21 08:40 98.0 F 98 18 110/67 99 01/07/21 08:02 98 Inpatient E&M: 54315 Subs Hosp L2
--- NOTE | 2021-01-07 15:27 | CHAPLAIN ---
Type of Pastoral Visit _x__ Initial Visit ___ Follow-up Visit ___ On-call Visit ___ General Patient Visit ___ Spiritual Assessment ___ Family Conference ___ Bereavement ___ Rapid Response ___ Code Blue ___ Other (describe below) Pastoral Care Referral From _x__ Patient ___ Family ___ Nurse ___ Physician ___ Sampler And Test Preparer ___ Wardrobe Manager ___ Other (describe below) Sacrament/Intervention _x__ Active listening ___ Anointing ___ Adventist ___ Bereavement ___ Communion ___ Jessica exploration ___ _x__ Life review _x__ Prayer ___ Reconciliation ___ Sacrament of Sick ___ Supportive presence ___ Wedding ___ Other (describe below) Pastoral Comments patient very talkative and open to discuss life and current situation; pt is encouraged by progress and good care from staff; pt admits to more pain due to her inability to take some meds; pt is Adventism and jessica is important;
[2021-01-07 19:43] VITALS: BP 126/61; PULSE 92; RESP 18; TEMP 36.9; O2SAT 99
[2021-01-07 20:21] VITALS: PULSE 62; RESP 17; O2SAT 99
[2021-01-07 21:36] VITALS: PULSE 62
[2021-01-07] MEDS: Senna/Docusate Sodium 1 Tablet 2 TABLET PO (21:37)
[2021-01-07] MEDS: Gabapentin 100 MG Capsule 200 MG PO (21:37)
[2021-01-07] MEDS: traMADol 50 MG Tablet 25 MG PO (21:40)
[2021-01-07] MEDS: Celecoxib 200 MG Capsule PO (21:52)
[2021-01-08] MEDS: Acetaminophen 500 MG Tablet 1000 MG PO ×3 (06:02→21:00)
[2021-01-08] MEDS: APIXABAN 2.5 MG TABLET PO ×2 (06:03→20:55)
[2021-01-08] MEDS: Vitamin B Comp W-C Capsule 1 CAP PO (07:45)
[2021-01-08] MEDS: Ascorbic Acid 500 MG Tablet PO (07:45)
[2021-01-08 07:46] VITALS: PULSE 81
[2021-01-08] MEDS: Metoprolol Tartrate 25 MG Tablet 12.5 MG PO ×2 (07:46→20:57)
[2021-01-08] MEDS: Celecoxib 200 MG Capsule PO ×2 (07:46→20:59)
[2021-01-08] MEDS: Magnesium Chloride 64 MG Delay Rel.Tablet PO ×2 (07:47→20:58)
[2021-01-08] MEDS: Senna/Docusate Sodium 1 Tablet 2 TABLET PO ×2 (07:47→20:58)
[2021-01-08 08:27] VITALS: BP 141/65; PULSE 81; RESP 16; TEMP 37.2; O2SAT 96
[2021-01-08 19:21] VITALS: BP 126/70; PULSE 85; RESP 14; TEMP 37.2; O2SAT 100
[2021-01-08 20:57] VITALS: PULSE 85
[2021-01-08] MEDS: Gabapentin 100 MG Capsule 200 MG PO (20:58)
[2021-01-08] MEDS: traMADol 50 MG Tablet 25 MG PO (21:02)
[2021-01-08 22:00] VITALS: PULSE 85; RESP 16; O2SAT 98
[2021-01-09] MEDS: Acetaminophen 500 MG Tablet 1000 MG PO ×3 (06:37→21:07)
[2021-01-09] MEDS: APIXABAN 2.5 MG TABLET PO ×2 (06:38→18:51)
[2021-01-09 07:55] VITALS: PULSE 80
[2021-01-09] MEDS: Magnesium Chloride 64 MG Delay Rel.Tablet PO ×2 (07:55→21:05)
[2021-01-09] MEDS: Ascorbic Acid 500 MG Tablet PO (07:55)
[2021-01-09] MEDS: Senna/Docusate Sodium 1 Tablet 2 TABLET PO (07:55)
[2021-01-09] MEDS: Celecoxib 200 MG Capsule PO ×2 (07:55→21:05)
[2021-01-09] MEDS: Metoprolol Tartrate 25 MG Tablet 12.5 MG PO ×2 (07:55→21:06)
[2021-01-09] MEDS: Vitamin B Comp W-C Capsule 1 CAP PO (07:55)
[2021-01-09 08:22] VITALS: BP 117/54; PULSE 80; RESP 16; TEMP 36.7; O2SAT 97
--- NOTE | 2021-01-09 12:16 | PCM.PN.BLA ---
Progress Note Afebrile VSS Maintaining appropriate oxygen saturation on RA Oral intake is good Discussed with nursing - no problems that need addressed Reviewed the PT/OT/ST notes Medication list reviewed. sleeping somewhat better now that she is taking the Tramadol at Bedtime and the Celebrex dose has been increased Denies N/V/depression/suicidal ideation. No calf pain. she is feeling tired and she is telling me that we are giving her twice the amount of Metoprolol she takes at home......but we are only giving her 12.5 mg BID. Alert, NAD, I saw her in the therapy room and she is able to do therapy without SOB. Lungs - CTA with good air exchange HRRR, no tachycardia, no MM and no gallop abd - soft and NT, denies N/V/epigastric pain the incision is intact with no dehiscence, no purulent discharge, no increased warmth or periincisional erythema No focal neurologic deficits No rashes and no skin breakdown Impressions 1. Physical debility secondary to severe osteoarthritis of the right knee limiting ambulation with recent right total knee arthroplasty 2. Acute blood loss anemia - this may be what is making her feel tired 3. LBBB 4. HTN - on minimal medication -only metoprolol 12.5 mg p.o. twice daily which I think was chosen not only due to hypertension but also to the history of palpitations. To new current medication regimen Check an H&H in the a.m. STROKE Vital Signs/Narrative: Vital Signs Temp Pulse Resp BP Pulse Ox 01/09/21 08:22 98.0 F 80 16 117/54 L 97 Inpatient E&M: [id number] Subs Hosp L1
[2021-01-09 19:29] VITALS: BP 130/63; PULSE 81; RESP 14; TEMP 36.6; O2SAT 100
[2021-01-09] MEDS: Gabapentin 100 MG Capsule 200 MG PO (21:05)
[2021-01-09 21:06] VITALS: PULSE 93
[2021-01-09] MEDS: traMADol 50 MG Tablet 25 MG PO (21:14)
[2021-01-09 22:00] VITALS: PULSE 93; RESP 16; O2SAT 100
[2021-01-10] MEDS: APIXABAN 2.5 MG TABLET PO ×2 (06:00→19:03)
[2021-01-10] MEDS: Acetaminophen 500 MG Tablet 1000 MG PO ×3 (06:00→21:29)
[2021-01-10 07:48] VITALS: BP 140/80; PULSE 91; RESP 17; TEMP 36.8; O2SAT 93
[2021-01-10 07:56] VITALS: PULSE 91
[2021-01-10] MEDS: Metoprolol Tartrate 25 MG Tablet 12.5 MG PO ×2 (07:56→21:28)
[2021-01-10] MEDS: Vitamin B Comp W-C Capsule 1 CAP PO (07:57)
[2021-01-10] MEDS: Celecoxib 200 MG Capsule PO ×2 (07:57→21:30)
[2021-01-10] MEDS: Ascorbic Acid 500 MG Tablet PO (07:57)
[2021-01-10] MEDS: Magnesium Chloride 64 MG Delay Rel.Tablet PO ×2 (07:58→21:29)
--- NOTE | 2021-01-10 15:06 | CASEMGMT ---
Social Work Followed up with pt on DC plans. Pt is set to DC home with 01/15 and requesting [facility]. Referral made for PT. looking into getting wheels for current walker. Offered to order FWW. Pt to notify SW if needed. to transport pt. Plan: DC home with 01/15, [facility], no DME Tessa Tsang, VEGETABLE VENDOR MOLD CHECKER
[2021-01-10 19:25] VITALS: BP 117/59; PULSE 92; RESP 16; TEMP 36; O2SAT 98
[2021-01-10 21:28] VITALS: BP 117/59; PULSE 92
[2021-01-10] MEDS: Gabapentin 100 MG Capsule 200 MG PO (21:29)
[2021-01-10] MEDS: traMADol 50 MG Tablet 25 MG PO (21:30)
[2021-01-10] MEDS: Senna/Docusate Sodium 1 Tablet 2 TABLET PO (21:30)
--- NOTE | 2021-01-11 00:58 | NURSING ---
pt awake and reports that she is having alot pain and unable to get comfortable and was requesting more tylenol. staff explained to pt d/t her tylenol being every 8 hour we are unable to give her more, and she was unable to take additional ultram til almost 5am. pt did put polar care on and was offered to go to a walk and pt stated that she was so miserable that she would rather not. staff offered to call the hospitalist but they would probably order something that she was unable to take and pt agreed. rn aware and will continue to monitor
[2021-01-11 05:42] LABS: Hematocrit 27.7 % (37-47); Hemoglobin 8.7 g/dL (12.0-15.0)
[2021-01-11 07:25] VITALS: PULSE 84
[2021-01-11] MEDS: Metoprolol Tartrate 25 MG Tablet 12.5 MG PO ×2 (07:25→21:47)
[2021-01-11] MEDS: Acetaminophen 500 MG Tablet 1000 MG PO ×4 (07:27→23:50)
[2021-01-11] MEDS: APIXABAN 2.5 MG TABLET PO ×2 (07:27→18:33)
[2021-01-11] MEDS: Vitamin B Comp W-C Capsule 1 CAP PO (07:27)
[2021-01-11] MEDS: Ascorbic Acid 500 MG Tablet PO (07:28)
[2021-01-11] MEDS: Celecoxib 200 MG Capsule PO ×2 (07:28→21:48)
[2021-01-11] MEDS: Magnesium Chloride 64 MG Delay Rel.Tablet PO ×2 (07:28→21:47)
[2021-01-11 08:08] VITALS: BP 124/74; PULSE 78; RESP 16; TEMP 36.8; O2SAT 97
--- NOTE | 2021-01-11 10:31 | PCM.PN.BLA ---
Progress Note Afebrile Vital signs stable Maintaining appropriate oxygen saturation on room air Hemoglobin is 8.7 today, down from 9.2 post op she states she did not sleep last night due to pain. she will not try the Tramadol other than at bedtime. she lists oxycodone and Hydrocodone as allergies. she is is geting Tylenol every 8 hours and Celebrex 200 mg BID and Tramadol 25 g Q HS. she wants to take the Tylenol every 6 hours. Schedule the Tylenol every 6 hours continue Celebrex and Tramadol at HS STROKE Vital Signs/Narrative: Vital Signs Temp Pulse Resp BP Pulse Ox 01/11/21 08:08 98.3 F 78 16 124/74 H 97 01/11/21 07:25 84
[2021-01-11 19:41] VITALS: BP 127/75; PULSE 76; RESP 16; TEMP 36.4; O2SAT 99
[2021-01-11] MEDS: traMADol 50 MG Tablet 25 MG PO (21:45)
[2021-01-11 21:47] VITALS: BP 127/75; PULSE 76
[2021-01-11] MEDS: Senna/Docusate Sodium 1 Tablet 2 TABLET PO (21:47)
[2021-01-11] MEDS: Gabapentin 100 MG Capsule 200 MG PO (21:47)
[2021-01-12] MEDS: APIXABAN 2.5 MG TABLET PO ×2 (06:03→18:02)
[2021-01-12] MEDS: Acetaminophen 500 MG Tablet 1000 MG PO ×3 (06:40→18:02)
[2021-01-12 08:19] VITALS: BP 123/75; PULSE 63; RESP 16; TEMP 36.3; O2SAT 100
[2021-01-12] MEDS: Celecoxib 200 MG Capsule PO ×2 (09:51→20:52)
[2021-01-12 09:52] VITALS: PULSE 70
[2021-01-12] MEDS: Magnesium Chloride 64 MG Delay Rel.Tablet PO ×2 (09:52→20:51)
[2021-01-12] MEDS: Metoprolol Tartrate 25 MG Tablet 12.5 MG PO ×2 (09:52→20:51)
[2021-01-12] MEDS: Vitamin B Comp W-C Capsule 1 CAP PO (09:53)
[2021-01-12] MEDS: Ascorbic Acid 500 MG Tablet PO (09:53)
[2021-01-12 18:55] VITALS: BP 143/60; PULSE 72; RESP 18; TEMP 36.6; O2SAT 100
[2021-01-12 20:00] VITALS: PULSE 72; RESP 16; O2SAT 97
--- NOTE | 2021-01-12 20:05 | NURSING ---
Pt ambulated around unit x1 with cane and nursing staff.
[2021-01-12] MEDS: Senna/Docusate Sodium 1 Tablet 2 TABLET PO (20:50)
[2021-01-12 20:51] VITALS: PULSE 72
[2021-01-12] MEDS: Gabapentin 100 MG Capsule 200 MG PO (20:51)
[2021-01-13] MEDS: Acetaminophen 500 MG Tablet 1000 MG PO ×4 (00:07→18:11)
[2021-01-13] MEDS: APIXABAN 2.5 MG TABLET PO ×2 (06:15→18:11)
[2021-01-13 08:25] VITALS: BP 153/79; PULSE 81; RESP 16; TEMP 36.6; O2SAT 94
[2021-01-13 09:05] VITALS: PULSE 70
[2021-01-13] MEDS: Metoprolol Tartrate 25 MG Tablet 12.5 MG PO ×2 (09:05→20:50)
[2021-01-13] MEDS: Vitamin B Comp W-C Capsule 1 CAP PO (09:05)
[2021-01-13] MEDS: Ascorbic Acid 500 MG Tablet PO (09:06)
[2021-01-13] MEDS: Celecoxib 200 MG Capsule PO ×2 (09:06→20:52)
[2021-01-13] MEDS: Magnesium Chloride 64 MG Delay Rel.Tablet PO ×2 (09:07→20:51)
[2021-01-13] MEDS: Senna/Docusate Sodium 1 Tablet 2 TABLET PO (09:08)
[2021-01-13 19:13] VITALS: BP 139/72; PULSE 75; RESP 16; TEMP 36.8; O2SAT 98
[2021-01-13 20:50] VITALS: PULSE 84
[2021-01-13] MEDS: Gabapentin 100 MG Capsule 200 MG PO (20:52)
[2021-01-13] MEDS: traMADol 50 MG Tablet 25 MG PO (21:00)
[2021-01-13 22:00] VITALS: PULSE 75; RESP 15; O2SAT 96
[2021-01-14] MEDS: Acetaminophen 500 MG Tablet 1000 MG PO ×5 (00:10→23:56)
[2021-01-14] MEDS: APIXABAN 2.5 MG TABLET PO ×2 (06:09→18:14)
[2021-01-14 08:03] VITALS: BP 154/77; PULSE 76
[2021-01-14] MEDS: Metoprolol Tartrate 25 MG Tablet 12.5 MG PO ×2 (08:03→20:59)
[2021-01-14] MEDS: Celecoxib 200 MG Capsule PO ×2 (08:04→21:00)
[2021-01-14] MEDS: Vitamin B Comp W-C Capsule 1 CAP PO (08:04)
[2021-01-14] MEDS: Magnesium Chloride 64 MG Delay Rel.Tablet PO ×2 (08:04→20:59)
[2021-01-14] MEDS: Ascorbic Acid 500 MG Tablet PO (08:04)
[2021-01-14 08:22] VITALS: BP 154/77; PULSE 76; RESP 16; TEMP 36.6; O2SAT 96
--- NOTE | 2021-01-14 12:27 | PCM.PN.BLA ---
Progress Note Afebrile VSS - systolic on occasion is mildly elevated. Maintaining appropriate oxygen saturation on RA Oral intake is good Discussed with nursing - no problems that need addressed Reviewed the PT/OT notes Medication list reviewed. she did not take the Tramadol on Thursday night and she did not sleep well. She did take the Tramadol last night and slept well. She denies adverse side effects with Tramadol. No complaints alert and oriented X 3 Lungs - CTA HRRR, no ectopy and no gallop abd - soft and ND, NT, denies dysuria no calf pain Impressions 1. physical debility post R TKA 2. OA 3. Acute blood loss anemia secondary to surgery 4. DVT prophylaxis with Apixaban 2.5 mg BID for 1 month Continue therapy planned DC tomorrow consult the manager applied to educate on foods high in iron Inpatient E&M: [id number] Subs Hosp L1
--- NOTE | 2021-01-14 15:39 | DCINST_ITS ---
- Discharge Diagnoses Current Active Problems: Current Active and Chronic Problems (Last Reviewed 01/03/21 @ 16:[address] Gina Marsh, DO) Spinal stenosis (Chronic) Osteoarthritis (Chronic) History of total knee arthroplasty (Acute) 01/01/[address] Foster Acute blood loss anemia (Acute) Due to blood loss at the time of right total knee replacement on 01/01/2021 Essential hypertension (Chronic) Elevated coronary artery calcium score (Acute) Palpitations (Chronic) Left bundle branch block (Chronic) You will use the following diet at home:: No restrictions Your food should be the consistency of: Regular Your liquids should be the consistency of: Regular/Thin Discharge Activity: May Not Drive - until okayed by Dr. Foster, May Shower, Use Walker Ice area for (Minutes): 15 - after therapy and as needed for pain control Weight Bearing Status: Full weight bearing Keep extremity elevated above heart level: Right Leg Call your doctor if your incision/area has: Continuous Slow Oozing, Sudden Increased Bleeding, Increased Pain/ Swelling, Increased Redness, Foul Smelling Discharge, Swelling at the incision site Call your doctor if you observe: Fever of 101 or Higher, Shortness of breath, Dizziness, Fainting spells, Swelling in the ankles, Chest pain, Increased palpitations (irregular heartbeat), Calf discomfort, Uncontrolled pain, - - DO NOT use alcohol with narcotic pain medication. DO NOT make important decisions while taking narcotic medication. Do not drive while taking narcotic medication. If you have problems while taking your medication (rash, itching, nausea etc.) call your primary care doctor. Additional Instructions: 1. Continue the instructions given to you by Dr. Foster when you were discharged from the hospital. 2. You are taking a medication called Apixaban which is a blood thinner. It is at a low dose and it is being used for 15 days post-op to help prevent blood clots in your legs. When you are on this medication we do not usually prescribe NSAID's (like Celebrex) because they can cause ulcers and then you can bleed. Your blood count dropped after surgery because of the blood loss in surgery. It has been stable even using the Celebrex with the Apixaban. We did not have many other options for pain control since you do not tolerate narcotics or Tramadol well. Always take the Celebrex with food. Celebrex is the least likely of all the NSAID's to cause ulcers. If your stool turns black and tarry stop the Celebrex and call your PCP......also if you have any maroon blood per rectum or if you vomit blood. You only have 4 more day to take the Apixaban. 3. Do the exercises given to you by the therapists twice a day. 4. It was a pleasure to meet you Niesha. you have done a great job in therapy......despite all the challenges with pain control. I sent your prescriptions to the [facility] retail pharmacy so you should have them when you leave. If you have any questions after leaving rehab please do not hesitate to call me at [phone] (cell) or [phone] (office). Pending Tests on Discharge: none Allergies/Adverse Reactions: Allergies cigarette smoke Allergy (Intermediate, Verified 12/20/20 08:50) difficulty breathing latex Adverse Reaction (Mild, Verified 12/20/20 08:50) Skin irritation, and skin tearing hydrocodone [From [place]] Adverse Reaction (Verified 12/20/20 09:00) suicidal oxycodone Adverse Reaction (Verified 12/20/20 09:00) flu-like symptoms tramadol Adverse Reaction (Verified 12/20/20 09:00) suicidal seasonal allergies Allergy (Uncoded 12/20/20 08:50) sinus Medications to take at Discharge Lactobacillus acidophilus 1 cap PO QDAY 12/07/17 cholecalciferol (vitamin D3) 1,250 mcg (50,000 unit) capsule 50,000 unit PO QMONTH cap 12/08/17 gabapentin 300 mg capsule 200 mg PO QHS cap 12/14/18 cinnamon bark-chromium picolinate 500 mg-100 mcg capsule 1 cap PO DAILY 12/13/19 garlic 1,000 mg capsule 1,000 mg PO DAILY cap 12/13/19 glucosamine-chondroitin 250 mg-200 mg tablet 1 tablet PO DAILY tablet 12/14/20 vitamin B complex 1 cap PO DAILY 12/14/20 Ascorbic Acid [Vitamin C] 500 mg PO DAILY@0800 12/20/20 Magnesium Oxide [Magnesium] 250 mg PO BID 12/20/20 Metoprolol Tartrate 12.5 mg PO BID 12/20/20 Ubidecarenone [Coq-10] 100 mg PO DAILY 12/20/20 Acetaminophen [Tylenol] 1,000 mg PO Q6H tablet 01/14/21 Celecoxib [Celebrex] 200 mg PO BID #28 capsule 01/14/21 traMADol [Ultram] 25 mg PO QHS 7 Days #7 tablet 01/14/21 The following prescriptions were given: Celecoxib [Celebrex] 200 mg PO BID #28 capsule Transmission Status: Pending to [facility] traMADol [Ultram] 25 mg PO QHS 7 Days #7 tablet Transmission Status: Sent to [facility] Primary Care Physician: Charisma Healy MD [Primary Care Provider] - Please follow up with your Primary Care Physician in: 7-10 days Test Results: Test results from this visit will be discussed in further detail at your follow- up appointment, if applicable. Please Follow Up With: Jignesh Foster DO When: Thursday
--- NOTE | 2021-01-14 17:06 | DS.PCM_ITS ---
Discharge Date and Diagnosis - Problem List Patient Problems: Active and Suspected Problems (Last Reviewed 01/03/21 @ 16:[address] Gina Marsh DO) History of total knee arthroplasty (Acute) 01/01/[address] Foster Acute blood loss anemia (Acute) Due to blood loss at the time of right total knee replacement on 01/01/2021 Elevated coronary artery calcium score (Acute) Date of Admission: 01/03/21 Date of Discharge: 01/15/21 - Primary Discharge Diagnosis Acute Problems: Active Problems (Last Reviewed 01/03/21 @ 16:[address] Gina Marsh DO) History of total knee arthroplasty (Acute) 01/01/[address] Foster Acute blood loss anemia (Acute) Due to blood loss at the time of right total knee replacement on 01/01/2021 Elevated coronary artery calcium score (Acute) - Secondary Discharge Diagnosis Chronic Problems: Chronic Problems (Last Reviewed 01/03/21 @ 16:[address] Gina Marsh DO) Spinal stenosis (Chronic) Osteoarthritis (Chronic) Essential hypertension (Chronic) Palpitations (Chronic) Left bundle branch block (Chronic) Hospital Course and Treatment Imaging Results: Laboratory Last Values Hgb 8.7 g/dL (12.0-15.0) L 01/11/21 05:34 Hct 27.7 % (37-47) L 01/11/21 05:34 none Operations: None Procedures: None Summary of Care Provided: Mark Anthony Cortes is a 80 year old F with a past medical history of lumbar canal stenosis, osteoarthritis, hypertension, left bundle branch block and elevated coronary artery calcium score who underwent a right total knee arthroplasty on 01/01/[address] Foster. She was admitted to the inpatient rehab unit at [facility] on 01/03/2021 for greater than 3 hours of therapy daily to restore her at or near her prior level of function/independence. Preoperatively the hemoglobin was 12.1 on 12/25/2019 and postoperatively the hemoglobin was 8.2. On 01/04/21 it was 9.2 and on 01/11 it was stable at 8.7. Niesha c/o severe pain in the R knee however she toldme she can not tolerate narcotics due to side effects and she was on Tramadol at one time and after a few days felt suicidal. Pain control was an issue. the pain was not adequately controlled on 1 GM of Tylenol every 6 hours. She would not take the Tramadol and she complained of not being able to sleep at night due to the pain. She was started on Celebrex 100 mg BID and the lower dose was chosen because she was on Apixaban 2.5 mg BID for 2 weeks after surgery to prevent VTE. She continued to c/o severe pain. She denied any hx of PUD and she denied N/V/epigastric pain. The dose was increased to 200 mg BID and the HH remained stable. She still was not sleeping well and she agreed to take Tramadol 25 mg at HS. When she took the Tramadol she slept well but, when she refused the Tramadol she c/o insomnia. She did well in therapy and prior to DC she Patient Problems: Active and Suspected Problems (Last Reviewed 01/03/21 @ 16:[address] Gina Marsh, DO) History of total knee arthroplasty (Acute) 01/01/[address] Foster Acute blood loss anemia (Acute) Due to blood loss at the time of right total knee replacement on 01/01/2021 Elevated coronary artery calcium score (Acute) - Physical Exam Vitals/I&O's: Vital Signs Temp Pulse Resp BP Pulse Ox 97.8 F 76 16 154/77 H 96 01/14/21 08:22 01/14/21 08:22 01/14/21 08:22 01/14/21 08:22 01/14/21 08:22 Oxygen Delivery Method Room Air Weight: 135 lb 5.821 oz Body Mass Index (BMI) 24.0 Orthostatic Vital Signs Start: 01/04/21 15:45 Freq: Status: Active Protocol: Activity Type Activity Date Activity User E-Sign Co-Sign Detail Recorded Client Recorded Date Recorded By Document 01/05/21 08:00 [facility] [id number] 01/05/21 14:41 LMS 01/05/21 08:00 Orthostatic Vitals Standing -Blood Pressure (90/60-120/80 mm Hg) 121/72 H -Extremity Use Right Arm -Pulse Rate (60-100 beats/min) 106 H Sitting -Blood Pressure (90/60-120/80 mm Hg) 132/61 H -Extremity Use Right Arm -Pulse Rate (60-100 beats/min) 95 Lying -Blood Pressure (90/60-120/80 mm Hg) 140/74 H -Extremity Use Right Arm -Pulse Rate (60-100 beats/min) 80 Intake and Output for Last 24 Hours 01/12/21 01/13/21 01/14/21 23:59 23:59 23:59 Intake Total 1730 / 1730 1520 / 1520 1040 / 1040 Output Total 250 / 250 Balance 1730 / 1730 1520 / 1520 790 / 790 Current Medications Acetaminophen (Acetaminophen 500 Mg Tablet) 1,000 mg PO Q6H [facility] Last Admin: 01/14/21 11:45 Dose: 1,000 mg Documented by: Apixaban (Apixaban 2.5 Mg Tablet) 2.5 mg PO 0700,1900 [facility] Last Admin: 01/14/21 06:09 Dose: 2.5 mg Documented by: Ascorbic Acid (Ascorbic Acid 500 Mg Tablet) 500 mg PO DAILY@0800 [facility] Last Admin: 01/14/21 08:04 Dose: 500 mg Documented by: Bisacodyl (Bisacodyl 10 Mg Suppository) 10 mg RC .PRN X 1 PRN PRN Reason: Constipation Celecoxib (Celecoxib 200 Mg Capsule) 200 mg PO BID [facility] Last Admin: 01/14/21 08:04 Dose: 200 mg Documented by: Ergocalciferol (Ergocalciferol 50,000 Unit Capsule) 50,000 unit PO QMONTH [facility] Gabapentin (Gabapentin 100 Mg Capsule) 200 mg PO QHS [facility] Last Admin: 01/13/21 20:52 Dose: 200 mg Documented by: Lactobacillus Acidophilus (Lactobacillus Acidophilus) 1 tablet PO DAILY [facility] Last Admin: 01/14/21 08:04 Dose: 1 tablet Documented by: Magnesium Chloride (Magnesium Chloride 64 Mg Delay Rel.Tablet) 64 mg PO BID [facility] Last Admin: 01/14/21 08:04 Dose: 64 mg Documented by: Magnesium Hydroxide (Magnesium Hydroxide 30 Ml Udc) 30 ml PO .PRN X 1 PRN PRN Reason: Constipation Metoprolol Tartrate (Metoprolol Tartrate 25 Mg Tablet) 12.5 mg PO BID [facility] Last Admin: 01/14/21 08:03 Dose: 12.5 mg Documented by: Multivitamins (Vitamin B Comp W-C Capsule) 1 capsule PO DAILYCM [facility] Last Admin: 01/14/21 08:04 Dose: 1 capsule Documented by: Senna/Docusate Sodium (Senna/Docusate Sodium 1 Tablet) 2 tablet PO BID [facility] Last Admin: 01/14/21 08:03 Dose: Not Given Documented by: Tramadol HCl (Tramadol 50 Mg Tablet) 25 mg PO Q8H PRN PRN PRN Reason: pain 4-10 Last Admin: 01/06/21 07:17 Dose: 25 mg Documented by: Tramadol HCl (Tramadol 50 Mg Tablet) 25 mg PO QHS [facility] Last Admin: 01/13/21 21:00 Dose: 25 mg Documented by: Discharge Activity: May Not Drive - until okayed by Dr. Foster, May Shower, Use Walker Ice area for (Minutes): 15 - after therapy and as needed for pain control Weight Bearing Status: Full weight bearing Keep extremity elevated above heart level: Right Leg Call your doctor if your incision/area has: Continuous Slow Oozing, Sudden Increased Bleeding, Increased Pain/ Swelling, Increased Redness, Foul Smelling Discharge, Swelling at the incision site Call your doctor if you observe: Fever of 101 or Higher, Shortness of breath, Dizziness, Fainting spells, Swelling in the ankles, Chest pain, Increased palpitations (irregular heartbeat), Calf discomfort, Uncontrolled pain, - - DO NOT use alcohol with narcotic pain medication. DO NOT make important decisions while taking narcotic medication. Do not drive while taking narcotic medication. If you have problems while taking your medication (rash, itching, nausea etc.) call your primary care doctor. Home Medications: Medications to take at Discharge Lactobacillus acidophilus 1 cap PO QDAY 12/07/17 cholecalciferol (vitamin D3) 1,250 mcg (50,000 unit) capsule 50,000 unit PO QMONTH cap 12/08/17 gabapentin 300 mg capsule 200 mg PO QHS cap 12/14/18 cinnamon bark-chromium picolinate 500 mg-100 mcg capsule 1 cap PO DAILY 12/13/19 garlic 1,000 mg capsule 1,000 mg PO DAILY cap 12/13/19 glucosamine-chondroitin 250 mg-200 mg tablet 1 tablet PO DAILY tablet 12/14/20 vitamin B complex 1 cap PO DAILY 12/14/20 Ascorbic Acid [Vitamin C] 500 mg PO DAILY@0800 12/20/20 Magnesium Oxide [Magnesium] 250 mg PO BID 12/20/20 Metoprolol Tartrate 12.5 mg PO BID 12/20/20 Ubidecarenone [Coq-10] 100 mg PO DAILY 12/20/20 Acetaminophen [Tylenol] 1,000 mg PO Q6H tablet 01/14/21 Apixaban [Eliquis] 2.5 mg PO BID #8 tablet 01/14/21 Celecoxib [Celebrex] 200 mg PO BID #28 capsule 01/14/21 traMADol [Ultram] 25 mg PO QHS 7 Days #7 tablet 01/14/21 Following Prescriptions Were Given to Patient: Celecoxib [Celebrex] 200 mg PO BID #28 capsule Transmission Status: Received by [facility] Apixaban [Eliquis] 2.5 mg PO BID #8 tablet Transmission Status: Received by [facility] traMADol [Ultram] 25 mg PO QHS 7 Days #7 tablet Transmission Status: Received by [facility] Primary Care Physician: Charisma Healy MD [Primary Care Provider] - Please follow up with your Primary Care Physician in: 7-10 days Please Follow Up With: Jignesh Foster DO When: Thursday Medical Necessity - Tobacco Use Smoking Status: Never smoker Tobacco Use: Non-smoker
[2021-01-14 19:22] VITALS: BP 135/51; PULSE 78; RESP 17; TEMP 36.1; O2SAT 98
[2021-01-14 20:50] VITALS: PULSE 78; RESP 17; TEMP 36.6; O2SAT 98
[2021-01-14 20:59] VITALS: BP 133/51; PULSE 78
[2021-01-14] MEDS: Senna/Docusate Sodium 1 Tablet 2 TABLET PO (20:59)
[2021-01-14] MEDS: Gabapentin 100 MG Capsule 200 MG PO (21:00)
[2021-01-14] MEDS: traMADol 50 MG Tablet 25 MG PO (21:51)
--- NOTE | 2021-01-14 23:42 | NURSING ---
Reviewed and agree with INTERPRETER TRANSLATOR documentation and charting.
[2021-01-15] MEDS: Acetaminophen 500 MG Tablet 1000 MG PO ×2 (06:00→12:00)
[2021-01-15] MEDS: APIXABAN 2.5 MG TABLET PO (07:00)
[2021-01-15 08:20] VITALS: BP 146/76; PULSE 76
[2021-01-15] MEDS: Celecoxib 200 MG Capsule PO (08:20)
[2021-01-15] MEDS: Vitamin B Comp W-C Capsule 1 CAP PO (08:20)
[2021-01-15] MEDS: Ascorbic Acid 500 MG Tablet PO (08:20)
[2021-01-15] MEDS: Senna/Docusate Sodium 1 Tablet 2 TABLET PO (08:20)
[2021-01-15] MEDS: Metoprolol Tartrate 25 MG Tablet 12.5 MG PO (08:20)
[2021-01-15] MEDS: Magnesium Chloride 64 MG Delay Rel.Tablet PO (08:20)
[2021-01-15 08:38] VITALS: BP 146/76; PULSE 76; RESP 16; TEMP 36.6; O2SAT 96
--- NOTE | 2021-01-15 13:02 | NURSING ---
discharged home with spouse.Discharge instruction, medications nand appointments reviewed with pt and . denies questions or concerns.
[2021-01-15 13:03] VITALS: BP 146/76; PULSE 76; RESP 16; TEMP 36.6; O2SAT 96
== END 2021-01-15 13:07 | disposition home or self-care (01) | DRG 560 ==
PROVIDERS: Admitting Provider Internal Medicine; PCP Internal Medicine; Visit Provider Internal Medicine
DX: Z47.1 Aftercare following joint replacement surgery (principal); D62 Acute posthemorrhagic anemia; Z96.651 Presence of right artificial knee joint; I10 Essential (primary) hypertension; I44.7 Left bundle-branch block, unspecified; M48.00 Spinal stenosis, site unspecified; Z79.899 Other long term (current) drug therapy; Z79.01 Long term (current) use of anticoagulants
CPT/HCPCS: 36415; 85014; 85018; 97110; 97116; 97162; 97166; 97530; 97535; 97802

== ENCOUNTER 2021-02-20 10:30 | Outpatient (RCR) | payer MEDICARE, OTHER, SELFPAY ==
[2020-12-14 10:25] VITALS: BMI 24.7
[2021-01-16 10:17] VITALS: BMI 24.0
--- NOTE | 2021-01-21 16:02 | HP.PTEVAL ---
Patient's Visit Information ECHO REED is a 80 year old F referred to Physical Therapy by Dr. Jignesh Foster DO with a diagnosis of R TKA. Date of Evaluation: 01/21/21 Physical Therapist: Tawanda Roblero, PT, ATC - Visit Plan Frequency: 2-3x /Week Duration: 4-6 Weeks Plan: R knee PROM/mobs, stretching and strengthening, balance and proprio, core stab ex's, nustep, and HEP - Subjective DOS: 01/01/21. Pt reports she had R TKA performed after having R knee pain for quite a while. Pt notes she had rehab in the hospital for the last 2 weeks. Pt reports she has seen Dr. Foster and he really wants her to be able to bend her knee better by next visit. Pt reports sleep difficulty secondary to pain. Pt denies any tingling or numbness in R LE. Pt reports stair difficulty at this time secondary to lack of ROM. Pt reports she is retired at this time. Pt reports her biggest goal is to be able to kneel again so she can garden in the near future. 0/10 at rest, 9/10 pain at worst (when she is lying down at night.) - Pain R knee Pain Intensity (Out of 10): 0 Pain Intensity Range: 9 - Objective Neuro: B LE sernsation is WNL to light touch. ROM: R knee 0-12-98, L knee 0-6-126. MMT: L knee flex= 22, ext= 23; R knee flex= 18, ext= 15. Girth at joint line: B knees 39 cm. Tu.75 - Goals Goal 1:: Decrease R knee pain x 50% to aid with sleep Goal Time Frame: 4-6 Weeks Goal 2:: Increase R knee ROM x 20 degrees to aid with kneeling activity Goal Time Frame: 4-6 Weeks Goal 3:: Increase R knee strength x 5 # to aid with stair negotiation Goal Time Frame: 4-6 Weeks Goal 4:: I with HEP Goal Time Frame: 4-6 Weeks - Rehabilitation Potential Physical Therapy Diagnosis: R knee pain, weakness, and limtied ROM secondary R TKA Rehabilitation Potential: Good - Anticipated Interventions Patient/Client Instruction: Educate patient on: Condition, Plan of Care For the Purpose of:: To improve self management Therapeutic Exercise to Include: Strength training, Endurance training, Balance training, Flexibilty training, Gait and locomotor training, Passive ROM, Active ROM, Dynamic Lumbar Stabilization, Scapular Strength/Stabilization For the Purpose of:: To decrease pain, To increase ROM, To improve muscle performance and motor function Cryotherapy (ice pack, ice massage): Yes For the Purpose of:: To decrease pain Thank you for the opportunity to evaluate your patient. For Medicare and Medicare HMO plans, please review the plan of care and approve it. It will need to be FAXED BACK to us at [phone] for Medicare purposes. For Medicare only, by signing this I certify the plan of care. Please let me know if there are questions or concerns regarding this plan of care. Physician Signature: Date:
--- NOTE | 2021-02-20 12:11 | HP.PTDCSUM ---
It has been my pleasure to treat ECHO REED referred by Dr. Jignesh Foster DO, with the diagnosis of R TKA for a total of 12 visit(s). Discharge Date: Please see the following information for a summary of their discharge status. Subjective: Pt reports she feels better now and thinks she is ready for I HEP R knee Pain Intensity (Out of 10): 0 % Improvement: 98 Objective/Function: R knee pain 0/10. R knee ROM: 0-7-110. R knee MMT: flex= , ext=. I with HEP. Rx goals achieved Goal 1:: Decrease R knee pain x 50% to aid with sleep Goal Progress: Goal Met Goal 2:: Increase R knee ROM x 20 degrees to aid with kneeling activity Goal Progress: Goal Met Goal 3:: Increase R knee strength x 5 # to aid with stair negotiation Goal Progress: Goal Met Goal 4:: I with HEP Goal Progress: Goal Met Plan: Discharge If there are questions or concerns regarding this patient's physical therapy, please feel free to call me at [phone]. Thank you for the referral of this patient. Sincerely, Tawanda Roblero, PT, ATC
== END 2021-02-20 13:05 | disposition home or self-care (01) ==
LOC: PT 10:30
PROVIDERS: PCP Internal Medicine; Referring Provider Orthopaedic Surgery; Visit Provider Orthopaedic Surgery
DX: Z96.651 Presence of right artificial knee joint (principal)
CPT/HCPCS: 97110; 97140; 97161; 97164

== ENCOUNTER → 2021-08-19 16:52 | Outpatient (CLI) | payer MEDICARE, OTHER, SELFPAY ==
--- NOTE | 2021-08-19 17:00 | RAD_ITS ---
STUDY: X-RAY - LEFT SHOULDER REASON FOR EXAM: Female, 81 years old. LFT SHOULDER OA TECHNIQUE: 4 view(s) of the shoulder. COMPARISON: None. FINDINGS: There is moderate degenerative arthrosis of the glenohumeral articulation. There is degenerative arthrosis of the acromioclavicular joint without inferior osseous spur formation. Normal acromion. There is demineralization of the humerus and visualized osseous structures. Possible mild calcific tendinitis. The soft tissue structures are unremarkable. There is no demonstrated fracture. Normal visualized pulmonary apex. RAD/Shoulder min 2 Views IMPRESSION: Diffuse osteopenia along with degenerative disease. Possible mild calcific tendinitis. No acute fracture or subluxation. Electronically Signed: Patrica Silva MD at 3:31 EST , Service support ,
== END ==
PROVIDERS: PCP Internal Medicine; Referring Provider Anesthesiology Pain Medicine; Visit Provider Anesthesiology Pain Medicine
DX: M19.012 Primary osteoarthritis, left shoulder (principal)
CPT/HCPCS: 73030

== ENCOUNTER → 2022-03-12 | Outpatient (CLI) | payer MEDICARE, OTHER, SELFPAY ==
--- NOTE | 2022-03-12 12:48 | ECHOD_ITS ---
Reason For Study: MURMUR Procedure This was a 2D Doppler, Color Flow transthoracic echocardiogram. Exam performed in department. Left Ventricle Normal LV size. Left ventricular systolic function is normal. The estimated ejection fraction is 55 %. Stage 1 diastolic dysfunction. No regional wall motion abnormalities noted. Right Ventricle Normal RV size. Normal systolic function. Atria Normal left atrium. Normal right atrium. Mitral Valve Normal mitral valve. Tricuspid Valve Normal tricuspid valve. Mild tricuspid valve insufficiency. Pulmonary artery systolic pressure is 37 mmHg. Aortic Valve Normal aortic valve. Pulmonic Valve Normal pulmonic valve. Great Vessels Normal aortic root. The pulmonary artery is normal size. Normal inferior vena cava. Pericardium/Pleural No pericardial effusion. MMode/2D Measurements & Calculations LVIDd: 4.0 cm IVSd: 0.98 cm Ao root diam: 2.9 cm LVIDs: 2.6 cm LVPWd: 0.89 cm RVDd: 3.5 cm FS: 33.7 % LAV(MOD-bp): 28.1 ml LVAd ap4: 30.4 cm2 SV(MOD-sp4): 56.5 ml LAV(MOD-bp) Indexed: 17.7 ml/m2 LVLd ap4: 8.0 cm LAV(MOD-sp2): 24.9 ml EDV(MOD-sp4): 90.9 ml LAV(MOD-sp4): 29.4 ml EDV(sp4-el): 98.0 ml LVAs ap4: 16.9 cm2 LVLs ap4: 6.8 cm ESV(MOD-sp4): 34.5 ml ESV(sp4-el): 35.6 ml EF(MOD-sp4): 62.1 % EF(sp4-el): 63.6 % SV(sp4-el): 62.4 ml LA A4 area: 12.7 cm2 LA dimension(2D): 2.8 cm RA A4 area: 15.1 cm2 Time Measurements MV dec time: 0.33 sec Doppler Measurements & Calculations MV E max kishore: 64.3 cm/sec Lat Peak E' Kishore: 6.3 cm/sec Med Peak E' Kishore: 4.4 cm/sec MV A max kishore: 109.6 cm/sec E/E' lat: 10.2 E/E' med: 14.6 MV E/A: 0.59 Ao V2 max: 121.4 cm/sec LV V1 max: 102.6 cm/sec PA V2 max: 96.7 cm/sec Ao max P.9 mmHg LV V1 max P.2 mmHg TR max kishore: 294.0 cm/sec TR max P.6 mmHg ECHO/Echo Complete Interpretation Summary Normal LV size. Left ventricular systolic function is normal. The estimated ejection fraction is 55 %. Stage 1 diastolic dysfunction. Pulmonary artery systolic pressure is 37 mmHg. Ordering Physician: Clara Cuellar/Dale Chavez Referring Physician: MARIE ETIENNE Performed By: Maria Fernanda Renteria RDCS
== END | disposition home or self-care (01) ==
LOC: CVS 12:47
PROVIDERS: PCP Internal Medicine; Referring Provider Physician Assistant Medical; Visit Provider Physician Assistant Medical
DX: I44.7 Left bundle-branch block, unspecified (principal); R01.1 Cardiac murmur, unspecified
CPT/HCPCS: 93306

== ENCOUNTER → 2023-01-07 | Outpatient (CLI) | payer MEDICARE, OTHER, SELFPAY ==
--- NOTE | 2023-01-07 15:26 | US_ITS ---
STUDY: RENAL ULTRASOUND - COMPLETE REASON FOR EXAM: Female, 82 years old. LOW BACK PAIN TECHNIQUE: Ultrasound evaluation of the kidneys was performed with real-time and static ferguson-scale imaging. COMPARISON: None. FINDINGS: RIGHT KIDNEY: Normal location of the right kidney, which is normal in size. The right kidney measures 10 x 3.4 x 3.7 cm. There is a normal cortex of the right kidney. The renal cortex measures 1 cm. There is no right renal mass or cyst. There are 2 nonobstructing calculi.. There is no right hydronephrosis. DISTAL RIGHT URETER: There is non-visualization of the distal right ureter. There is no demonstrated right ureterovesical junction calculus. There is a visualized right ureteral jet. LEFT KIDNEY: Normal location of the left kidney, which is normal in size. The left kidney measures 9.8 x 4.2 x 5.5 cm. There is a normal cortex of the left kidney. The renal cortex measures 1.2 cm. There is no left renal mass or cyst. There are 2 nonobstructing calculi.. There is no left hydronephrosis. DISTAL LEFT URETER: There is non-visualization of the distal left ureter. There is no demonstrated left ureterovesical junction calculus. There is a visualized left ureteral jet. BLADDER: Incompletely distended mildly thick walled bladder containing intraluminal debris possibly inflammatory although cannot exclude intraluminal hemorrhage. US/Kidney and Bladder IMPRESSION: Nonobstructing bilateral renal calculi. No evidence for hydronephrosis or mass. Intraluminal debris within the bladder possibly inflammatory or hemorrhagic. Clinical correlation recommended Electronically Signed: Wallace Soni MD at 20:57 EDT ,
== END | disposition home or self-care (01) ==
LOC: US 15:23
PROVIDERS: PCP Internal Medicine; Referring Provider Urology; Visit Provider Urology
DX: M54.50 Low back pain, unspecified (principal)
CPT/HCPCS: 76770

== ENCOUNTER → 2023-01-13 | Outpatient (CLI) | payer MEDICARE, OTHER, SELFPAY ==
--- NOTE | 2023-01-13 12:58 | CT_ITS ---
INDICATION: KIDNEY STONE EXAMINATION: CT ABDOMEN AND PELVIS WITH AND WITHOUT CONTRAST - CT Abdomen And Pelvis WO/W Contrast Injection TECHNIQUE: Helically acquired images were obtained of the abdomen and pelvis both before and after IV contrast. A radiation dose optimization technique was used for this scan. IV Contrast dosage and agent: Oral contrast: None. RADIATION DOSAGE (If Supplied By Facility): CTDIvol = ( 11.99 ) mGy, DLP = ( 1698.85 ) mGycm COMPARISON: FINDINGS: LOWER CHEST: Lung bases are clear. No cardiomegaly or pericardial effusion. LIVER: Homogeneous. No focal mass. GALLBLADDER AND BILIARY TREE: No calcified gallstones. No gallbladder distension or wall edema. No intra- or extrahepatic biliary ductal dilation. PANCREAS: No focal cystic or solid mass. SPLEEN: Normal size without focal cystic or solid mass. ADRENAL GLANDS: No nodules. KIDNEYS AND URETERS: Right upper pole nonobstructing calculus 7 mm in diameter. Left midpole nonobstructing calculus 2 mm in diameter. Right lower pole nonobstructing calculus 3 mm in diameter. Both kidneys demonstrate prompt function and excretion. PERITONEUM: No ascites or free air. No other fluid collection. BOWEL: No evidence of acute appendicitis. Moderate fecal stasis. Moderate diverticulosis of the sigmoid colon. No evidence of diverticulitis. Small bowel normal. Stomach nondistended limiting evaluation. No focal inflammatory change. LYMPH NODES: No enlarged mesenteric or retroperitoneal lymph nodes. VESSELS: Aorta is non-dilated. URINARY BLADDER: Unremarkable. REPRODUCTIVE ORGANS: No pelvic masses. ABDOMINAL WALL: No discrete abdominal or pelvic wall hernia. BONES: Bilateral pedicle screw fusion L4-5 grade 2 spondylolisthesis. Severe degenerative disc disease throughout the lumbar spine. Bilateral laminectomy L4-5 and L3-4. Moderate dextroscoliosis thoracolumbar spine with rightward subluxation of L3 on L4. CT/CT Abd/Pelvis W/WO Contrast IMPRESSION: Bilateral nonobstructing renal calculi detailed above. Scoliosis thoracolumbar spine. Fecal stasis. Sigmoid diverticulosis. Postoperative and degenerative changes of the lumbar spine as above. Electronically Signed: Jelani Hendrickson MD, KENAN at 22:02 EDT ,
[2023-01-13 13:55] LABS: CREATININE FINGERSTICK < 0.9 mg/dL (0.55-1.02); EGFR FINGERSTICK > 60.0000 mL/min (>60)
== END | disposition home or self-care (01) ==
LOC: CT 12:56
PROVIDERS: PCP Internal Medicine; Referring Provider Urology; Visit Provider Urology
DX: N20.0 Calculus of kidney (principal)
CPT/HCPCS: 74178; Q9967

== ENCOUNTER 2023-02-05 11:01 | Day surgery (SDC) | payer MEDICARE, OTHER, SELFPAY ==
--- NOTE | 2023-02-05 | BLA_PTH ---
PATIENT: ECHO REED LOC: [facility] [place] U#:[id number] AGE/SX: 83/F ROOM: RE02/05/[address]: Dr. Katherine Still MD : [id number] BED: DIS: 02/05/2023 SPEC #: [id number] RECD: 02/05/23 13:47 STATUS: GE JASMINE #: [id number] DENNIS: 02/05/23 00:[address]: Katherine Still DEPT: SURGICAL PATHOLOGY RECD BY: Dayday Cote ENTERED: 02/05/23 13:47 SP TYPE: BLADDER BX OTHR DR: Dr. Charisma Healy MD Tissues: Urinary bladder, NOS Procedures: Surgery Specimen Level IV HEADER OPERATION: ESWL, cysto, bladder biopsy PRE-OP DIAGNOSIS: Right renal calculus, urinary tract infection TISSUE SUBMITTED: Bladder biopsy MICROSCOPIC DIAGNOSIS Bladder, biopsy: Fragments of urothelial mucosa, negative for malignancy. See comment. NAHUN:zainab 02/06/2023 COMMENT Detrusor muscle is present in the specimen. MICROSCOPIC DESCRIPTION Slides are reviewed. GROSS DESCRIPTION Received in fixative is one container labeled with the patient's name and designated bladder biopsy. The specimen consists of three irregular fragments of ochoa soft tissue that in aggregate measure 0.4 x 0.1 x 0.1 cm. The specimen is totally submitted in one cassette. / NAHUN:zainab 02/05/2023 TC:5 CPT: 95463
[2023-02-05 11:24] VITALS: BP 133/77; PULSE 71; RESP 16; TEMP 36.8; O2SAT 100; BMI 22.6
[2023-02-05] MEDS: Lactated Ringers 1,000 ML 15 ML IV (11:27)
--- NOTE | 2023-02-05 12:03 | DCINST_ITS ---
Discharge Instructions Diet Discharge Diet: No restrictions Activity Discharge Activity: Return to Normal Activity Dressing / Incision Call your doctor if you observe: Fever of 101 or Higher, Inability to urinate and Inability to have a bowel movement Follow Up Care Please Follow Up With: Katherine Still MD When: Call office for appointment Test Results: Test results from this visit will be discussed in further detail at your follow- up appointment, if applicable. Discharge Plan Admission Attending Provider: Katherine Still Primary Care Provider: Charisma Healy Discharge Orders/Prescriptions Prescriptions: New acetaminophen-codeine [acetaminophen-codeine] 300-30 mg tablet 1 - 2 tab PO Q6H PRN PRN (Reason: Pain Score 6-10/10) 3 Days Qty: 10 0RF cephalexin [cephalexin] 500 mg capsule 500 mg PO Q12 3 Days Qty: 6 0RF Continued Lactobacillus acidophilus [Acidophilus] capsule 1 cap PO QDAY Label Comments: 1 capsule PO QDAY Rx Instructions: 1 capsule PO QDAY cinnamon bark-chromium picolinate 500 mg-100 mcg capsule 500-100 mg-mcg capsule 1 cap PO DAILY garlic 1,000 mg capsule 1,000 mg PO DAILY gabapentin 100 mg capsule 200 mg PO QHS Label Comments: TAKE 1 2 CAPSULES BY MOUTH ONCE DAILY FOR 180 DAYS. omega-3 fatty acids 1,000 mg capsule 1,000 mg PO DAILY vitamin B complex Capsule 1 cap PO DAILY prevagen 50 mg PO DAILY meloxicam 7.5 mg tablet 7.5 mg PO DAILY ascorbic acid (vitamin C) 500 MG tablet 500 mg PO DAILY@0800 coenzyme Q10 100 MG capsule 100 mg PO DAILY calcium 600 mg Capsule 600 mg PO DAILY kdeoupw-rpow-cbbxx-oreg-capryl 100 mg-150 mg- 50 mg-150 mg Capsule 1 cap PO DAILY acetaminophen [Tylenol] 325 mg Tablet 650 mg PO Q4H PRN (Reason: Pain) Super Fruits 1 tab PO/SL DAILY Super Green 1 tab PO/SL DAILY Referrals / Follow Up: Charisma Healy MD [Primary Care Provider] - Disposition Disposition (needs filled in before D/C Order can be placed): Home, Self Care
--- NOTE | 2023-02-05 12:07 | PCM.OPRPT ---
Report of Operation Date of Procedure: 02/05/23 Pre-Operative Diagnosis: Right renal calculus, urinary tract infection Post-Operative Diagnosis: Same Surgery/Procedure Performed:: Cystoscopy, right renal extracorporal shockwave lithotripsy Surgeon: Katherine Still Type of Anesthesia: General Specimen's removed: Bladder biopsy Description of Procedure: The patient is an 83-year-old female with a right renal calculus who presents for management and evaluation of her bladder. Informed consent was obtained. The patient was taken to the operating room and placed on the operating room table. Anesthesia monitored the head, neck, airway, IV access and vital signs throughout the case. Once anesthesia was appropriately administered, the patient was placed into dorsolithotomy position was prepped and draped in usual sterile fashion. The cystoscope was inserted through the urethra under direct visualization into the urinary bladder. The mucosa was visualized in its entirety. There was an area of concern in the patient's right posterior bladder wall and this was biopsied and fulgurated for hemostatic control and tissue treatment. It was consistent with a superficial ulceration in appearance. There was no papillary growth of the tissue present. The patient's bladder was then emptied and the cystoscope was removed. The patient was then positioned on the table and her right renal calculus was easily visualized with fluoroscopy. 3000 shocks were applied to her right renal calculus which appeared to be well fragmented at the end of the case. The patient was then awakened and taken to the recovery room in good condition. There were no complications during this procedure. Complications None Admit VTE Documentation VTE Present on Admission: Yes VTE Mechan Device Prophylaxis: SCD's VTE Pharm Prophylaxis ordered?: No Reason prophylaxis not ordered:: Treatment Not Indicated
[2023-02-05] MEDS: Cefazolin 2 GM in 0.9% Normal Saline 100 ML IV (12:24)
[2023-02-05 13:27] VITALS: BP 132/77; BP 133/77; PULSE 95; RESP 16; TEMP 36.3; O2SAT 98
[2023-02-05 13:30] VITALS: BP 130/75; BP 133/77; PULSE 89; RESP 16; O2SAT 98
[2023-02-05 13:45] VITALS: BP 120/90; BP 133/77; PULSE 92; RESP 16; O2SAT 97
[2023-02-05 13:50] VITALS: BP 133/77; BP 151/78; PULSE 90; RESP 18; TEMP 36.3; O2SAT 99
[2023-02-05 14:30] VITALS: BP 133/77
== END 2023-02-05 14:35 | disposition home or self-care (01) ==
LOC: SDC 11:01 → AC 11:04
PROVIDERS: PCP Internal Medicine; Referring Provider Urology; Visit Provider Urology
PROC: (CPT 50590; principal; 2023-02-05 12:25)
DX: N20.0 Calculus of kidney (principal); N39.0 Urinary tract infection, site not specified; Z79.899 Other long term (current) drug therapy
CPT/HCPCS: 50590; 00873; 88305; J7120; J2405

== ENCOUNTER → 2023-02-23 | Outpatient (CLI) | payer MEDICARE, OTHER, SELFPAY ==
--- NOTE | 2023-02-23 11:05 | RAD_ITS ---
INDICATION: KUB- KIDNEY STONE EXAMINATION/TECHNIQUE: X-RAY - XR Abdomen 1 View COMPARISON: CT abdomen and pelvis 01/13/2023 FINDINGS: Small 4 mm calcific density region the upper pole right kidney may represent a small calculus. Other calcifications upper abdomen, lobular calcifications which may represent overlying stool content or other calcifications. Calcification left upper abdomen corresponds to splenic artery calcification. Limited by stool content. Calcified phleboliths in the pelvis. No bowel obstruction. Surgical hardware in the lumbar spine, scoliosis and degenerative changes. RAD/Abdomen Single View IMPRESSION: Possibly small calculus in the right kidney. Limited with overlying stool content. Electronically Signed: Meryl Melvin MD at 4:27 EDT ,
== END | disposition home or self-care (01) ==
LOC: MTRAD 11:03
PROVIDERS: PCP Internal Medicine; Referring Provider Urology; Visit Provider Urology
DX: N20.0 Calculus of kidney (principal)
CPT/HCPCS: 74018

== ENCOUNTER → 2023-08-26 | Outpatient (CLI) | payer MEDICARE, OTHER, SELFPAY ==
--- NOTE | 2023-08-26 10:56 | RAD_ITS ---
INDICATION: KIDNEY STONES EXAMINATION/TECHNIQUE: X-RAY - XR Abdomen 1 View COMPARISON: Prior study dated: 02/23/2023 FINDINGS: BOWEL GAS PATTERN: Non-obstructive. No bowel or stomach distention. FREE AIR: Not assessed on a single supine view. ORGANOMEGALY: Not seen. CALCIFICATIONS: No abnormal calcifications observed. Multiple phleboliths in the pelvis. Right upper quadrant calcifications are seen likely corresponding to previously visualized renal calculi. The largest measures 1.5 cm in the region of the upper pole. Left-sided calculi are not definitively seen. LOWER CHEST: No acute pathology. BONES AND SOFT TISSUES: No acute pathology. Scoliotic curvature. Spinal fusion hardware at the lower lumbar spine. RAD/Abdomen Single View IMPRESSION: Calcification in the right abdomen may correlate with the renal calculus seen on prior CT at the right kidney upper pole. Electronically Signed: Holland Dumont MD at 17:34 EST ,
== END | disposition home or self-care (01) ==
LOC: MTRAD 10:55
PROVIDERS: PCP Internal Medicine; Referring Provider Urology; Visit Provider Urology
DX: N20.0 Calculus of kidney (principal)
CPT/HCPCS: 74018

== ENCOUNTER 2023-10-05 13:48 | Outpatient (RCR) | payer MEDICARE, OTHER, SELFPAY | END 2023-10-05 19:00 | disposition home or self-care (01) | LOC: PT 13:48 | PROVIDERS: PCP Internal Medicine | DX: R15.2 Fecal urgency (principal); R15.9 Full incontinence of feces ==

== ENCOUNTER → 2024-06-10 | Outpatient (CLI) | payer MEDICARE, OTHER, SELFPAY ==
--- NOTE | 2024-06-10 14:45 | RAD_ITS ---
STUDY: X-RAY - LEFT HAND REASON FOR EXAM: Female, 84 years old. Hand pain. TECHNIQUE: 3 views of the left hand. COMPARISON: None. FINDINGS: Normal radiocarpal articulation. Normal distal radioulnar joint. Intact visualized carpal bones. There is degenerative arthrosis at the triscaphe joint and first CMC joint. Normal second through fifth carpometacarpal joints. Normal metacarpi. Normal proximal and distal phalanges of the thumb. Normal metacarpophalangeal joints of the second through fifth fingers. There is degenerative arthrosis of the first MCP joint, interphalangeal joint of the thumb, as well as second through fifth PIP and DIP joints. Intact phalanges of the second through fifth fingers. There is no demonstrated acute fracture. RAD/Hand Min 3 Views IMPRESSION: Degenerative arthrosis of the triscaphe joint, first CMC joint, first MCP joint, interphalangeal joint of the thumb, as well as second through fifth PIP and DIP joints. No demonstrated acute fracture. Electronically Signed: [place] MD at 15:34 EDT ,
--- NOTE | 2024-06-10 14:45 | RAD_ITS ---
STUDY: X-RAY - RIGHT HAND REASON FOR EXAM: Female, 84 years old. Hand pain. TECHNIQUE: 3 views of the right hand. COMPARISON: None. FINDINGS: Normal radiocarpal articulation. Normal distal radioulnar joint. Intact visualized carpal bones. There is degenerative arthrosis at the triscaphe joint and first CMC joint. Normal second through fifth carpometacarpal joints. Normal metacarpi. Normal proximal and distal phalanges of the thumb. Normal metacarpophalangeal joints of the second through fifth fingers. There is degenerative arthrosis of the first MCP joint, interphalangeal joint of the thumb, as well as second through fifth PIP and DIP joints. Intact phalanges of the second through fifth fingers. There is no demonstrated acute fracture. RAD/Hand Min 3 Views IMPRESSION: Degenerative arthrosis of the triscaphe joint, first CMC joint, first MCP joint, interphalangeal joint of the thumb, as well as second through fifth PIP and DIP joints. No demonstrated acute fracture. Electronically Signed: Fish Spring MD at 15:38 EDT ,
== END | disposition home or self-care (01) ==
LOC: LAB 14:42 → RAD 14:43
PROVIDERS: PCP Internal Medicine; Referring Provider Surgery Plastic and Reconstructive Surgery; Visit Provider Surgery Plastic and Reconstructive Surgery
DX: M89.49 Other hypertrophic osteoarthropathy, multiple sites (principal)
CPT/HCPCS: 73130

== ENCOUNTER → 2024-08-09 | Outpatient (CLI) | payer MEDICARE, OTHER, SELFPAY ==
[2024-08-09 12:04] LABS: Erythrocyte Sedimentation Rate 4 mm/hr (0-30)
[2024-08-09 12:50] LABS: Amylase 62 U/L (25-115); CRP < 2.90 mg/L (0.0-3.0); Lipase 40 U/L (13-75)
[2024-08-10 14:09] LABS: Anti-Centromere B Ab <0.2 AI (0.0-0.9); Anti-Chromatin <0.2 AI (0.0-0.9); Anti-Jo <0.2 AI (0.0-0.9); Anti-Scleroderma-70 AB <0.2 AI (0.0-0.9); Anti-dsDNA Ab <1 IU/mL (0-9); RNP Ab <0.2 AI (0.0-0.9); SJOGREN'S Anti-SS-A test < 0.2 AI (0.0-0.9); SJOGREN'S Anti-SS-B test < 0.2 AI (0.0-0.9); Smith Ab <0.2 AI (0.0-0.9)
[2024-08-13 07:09] LABS: ACCA 5 units (0-90); ALCA 3 units (0-60); AMCA 8 units (0-100); Albumin 3.8 g/dL (2.9-4.4); Alpha-1-Globulins 0.2 g/dL (0.0-0.4); Alpha-2-Globulins 0.7 g/dL (0.4-1.0); Cytoplasmic Ab (C-ANCA) <1:20 titer (Neg:<1:20); Endomysial Antibody IgA Negative (Negative); Gastrin, Serum 21 pg/mL (0-115); IMMUNOFIXATION RESULT,S Comment: (.); Immunoglobulin A 67 mg/dL (64-422); Immunoglobulin E 10 IU/mL (6-495); Immunoglobulin G 1021 mg/dL (586-1602); Immunoglobulin M 49 mg/dL (26-217); PROEL- TOTAL PROTEIN 6.6 g/dL (6.0-8.5); Perinuclear Ab (P-ANCA) <1:20 titer (Neg:<1:20); QNTFERON TB Mitogen Value > 10.00 IU/mL (.); QNTFERON TB Nil Value 0 IU/mL (.); QNTFERON TB1+ Ag Value 0.03 IU/mL (.); QNTFERON TB2+ Ag Value 0.04 IU/mL (.); QNTIFERON TB Positive Criteria Negative (Negative); gASCA 1 units (0-50); t-Transglutaminase IgA <2 U/mL (0-3)
== END | disposition home or self-care (01) ==
LOC: LAB 11:14
PROVIDERS: PCP Internal Medicine; Referring Provider Internal Medicine Gastroenterology; Visit Provider Internal Medicine Gastroenterology
DX: N81.6 Rectocele (principal)
CPT/HCPCS: 36415; 82150; 82784; 82785; 82941; 83516; 83690; 84165; 85652; 86036; 86037; 86140; 86225; 86235; 86255; 86334; 86480; 86671

== ENCOUNTER → 2024-08-12 | Outpatient (CLI) | payer MEDICARE, OTHER, SELFPAY ==
[2024-08-15 15:07] LABS: Pancreatic Elastase, Fecal > 800 (>200)
[2024-08-16 13:08] LABS: Calprotectin, Stool 64 ug/g (0-120); Fats, Neutral Normal (.); Fats, Total Normal (.)
== END | disposition home or self-care (01) ==
PROVIDERS: PCP Internal Medicine; Referring Provider Internal Medicine Gastroenterology; Visit Provider Internal Medicine Gastroenterology
DX: N81.6 Rectocele (principal); K58.9 Irritable bowel syndrome, unspecified
CPT/HCPCS: 82274; 82653; 82705; 83630; 83993; 87177; 87209; 87329; 87493

== ENCOUNTER → 2024-08-31 | Outpatient (CLI) | payer MEDICARE, OTHER, SELFPAY ==
--- NOTE | 2024-08-31 13:54 | ST.MBS ---
Modified Barium Swallow Patient Information Study Date: 08/31/24 Study Time: 13:00 Direct Billable Minutes: 90 Total Minutes procedure & reportin Diagnosis: Dysphagia R13.10 Referring Physician: Jose De Jesus Gonzalez Reason for Referral: Objectively assess swallow function, assess risk for aspiration, and determine recommendations for least restrictive diet textures and compensatory strategies to improve safety of swallow. Medical History: PMH: Congenital spondylolysis, Pharyngeal dysphagia, Dizziness and giddiness, IBS, Hypercholesteremia, Dysphagia, Diverticulosis small intestine, Diverticula of colon, Diarrhea, Benign neoplasm of colon, Renal stone, Arthritis, Low iron, Back pain, Non-smoker, Acute blood loss anemia, Spinal stenosis, HTN, LBBB (See EMR for full PMH). The patient reports swallowing difficulty, which gradually onset ~6 months ago. She reports difficulty swallowing both foods and drinks, feeling as if foods go down slowly and liquids make her cough. Hx of PNA 7-8 years ago. She reports having noisy belching after meals. She recently had an office visit w/ territory account representative, Dr. Gonzalez, recommending MBSS to further assess concern for swallow dysfunction. Current Diet Ordered: Regular textures / Thin liquids Dentition: Natural Teeth Mental Status: WNL Respiratory Status: Oxygenating on Room Air Penetration-Aspiration Scale Penetration-Aspiration Scale: OBJECTIVE ASSESSMENT OF SWALLOW FUNCTION (QUANTITATIVE ? PER TRIAL): PENETRATION / ASPIRATION SCALE (CORRAL): 1 = does not enter airway 2 = enters airway/above vocal folds/ejected 3 = enters airway/above vocal folds/not ejected 4 = enters airway/contacts vocal folds/ejected 5 = enters airway/contacts vocal folds/not ejected 6 = enters airway/below vocal folds/ejected 7 = enters airway/below vocal folds/not ejected despite effort 8 = enters airway/below vocal folds/no effort VIDEOFLOROSCOPIC SCALE SCORE (CORRAL): Grade I = aspiration of material that has penetrated into the laryngeal vestibule, intact cough reflex Grade II = aspiration < 10 % of the bolus, intact cough reflex Grade III = aspiration of < 10 % of the bolus, reduced cough reflex or aspiration of > 10 % of the bolus, intact cough reflex Grade IV = aspiration of > 10 % of the bolus, reduced cough reflex Penetration-Aspiration Scale Score Thin Liquid via teaspoon: Result: 1= does not enter airway Thin Liquid via teaspoon Trial 2: Result: 5= enters airways/contacts vocal folds/not ejected Thin Liquid via large single sip: cup: Result: 2= enter airway/above vocal folds/ejected [place] Thick Liquid via small single sip: cup: Result: 2= enter airway/above vocal folds/ejected Pudding via teaspoon: Result: 1= does not enter airway Comment: Retention of pudding in the middle-lower esophagus w/ retrograde flow. Thin Liquid via single sip: straw: Result: 2= enter airway/above vocal folds/ejected Comment: Esophageal screen - Improved clearance of pudding, but continued retention of barium in the middle-lower esophagus w/ retrograde flow of thin barium to the upper esophagus. 1/2 Cookie: Result: 1= does not enter airway Comment: Esophageal screen - Retention of cookie w/ barium coating in the upper-middle esophagus. Thin Liquid via sequential sips:straw: Result: 3= enters airways/above vocal folds/not ejected Comment: Esophageal screen - Esophageal retention throughout the esophagus w/ retrograde flow remaining below the UES. An additional screen was completed ~2 min later with some improvements in esophageal clearance, but the pt still had retention of barium throughout the esophagus. Oral Phase Labial Seal: No Labial Escape Tongue Control During Bolus Hold: Posterior escape of greater than half of bolus Bolus Preparation/Mastication: Timely and efficient chewing and mashing Bolus Transport/Lingual Motion: Repetitive/disorganized tongue motion Oral Residue: Majority of bolus remaining (piecemeal deglutition of pudding, fully cleared on 2nd swallow) Pharyngeal Phase Initiation of Pharyngeal Swallow: Bolus head at posterior laryngeal surgace of epiglottis (and laryngeal vestibule) Soft Palate Elevation: No bolus between soft palate and pharyngeal wall Laryngeal Elevation: Partial superior movement thyroid cart/partial apprx aryt-epig petiole Anterior Hyoid Excursion: Partial anterior movement Epiglottic Movement: Partial inversion (inconsistent, at times complete inversion) Laryngeal Vestibule Closure at Height of Swallow: Incomplete; narrow column of air/contrast in laryngeal vestibule Pharyngeal Stripping Wave: Present - complete Pharyngoesophageal Segment Opening: Parital distension and partial duration; parital obstruction of flow Tongue Base Retraction: Narrow column of contrast between tongue base & post. pharyngeal wall Pharyngeal Residue: Trace residue within or on pharyngeal structures Esophageal Phase Esophageal Clearance: Esophageal retention w/ retrograde flow below pharyngoesophageal seg. Diagnosis/Impression Diagnosis: Mild oropharyngeal dysphagia R13.12; Esophageal dysphagia R13.14 Impression: CP bar at the level of C5-C6 w/ small pouch-like collection of barium just above the CP bar during the study. Anterior bony protrusions C5-C7. SCHOOL STANDARDS COACH to review findings w/ radiologist, Dr. Dukes. The oral phase is primarily marked by... -Premature posterior loss of ~50% of the bolus for thin liquids to the posterior surface of the epiglottis and even to the laryngeal vestibule, increasing risk for aspiration before the swallow. -Repetitive tongue motion for A-P transport. -Piecemeal deglutition of pudding, but complete oral clearance after 2 swallows. The pharyngeal phase is primarily marked by... -Delayed swallow onset. -Decreased airway closure during the swallow due to decreased anterior hyoid excursion, laryngeal elevation, and inconsistent epiglottic inversion. -Laryngeal penetration of thin liquid by tsp to the vocal folds w/o full ejection placing the patient at increased risk for aspiration after the swallow; however, the patient had no aspiration during the MBSS. The esophageal phase is primarily marked by... -Esophageal retention of pudding, cookie, and liquids with retrograde flow of barium liquids. Liquid wash was effective in clearing pudding retention; however, cookie w/ liquid wash had little to no emptying through the LES after the swallow. 2 min following final trial, esophageal screen revealed somewhat improved esophageal clearance; however, pt had continued retention of barium throughout the esophagus. Recommendations Diet: Puree Textures and Thin Liquids Comment: STOP eating/drinking if increased coughing s/s of reflux, sensation of retention, or regurgitation despite use of recommended strategies and resume at a later time. Compensatory Strategies: Small Bites, Small Sips, Alternate bites/solids and sips/liquids (1-2 sips after each bite) and Sitting upright (During and 60min following meals) Recommend Repeat Modified Barium Swallow: TBD Need for Skilled Speech Therapy Services: Yes Comment: -Train the patient in use of strategies to decrease risk for aspiration and reflux aspiration. -Ongoing assessment of diet tolerance of recommended textures. -Train the patient in oropharyngeal exercise program to improve bolus control, airway closure, and swallow onset (lingual resistance, CTAR, Horace). Recommended Referrals: GI Consult (Recommend GI consult to address esophageal dysphagia w/ very slowed emptying of various consistencies, especially solids. Retrograde flow of barium during esophageal screens placing pt at risk for reflux aspiration.) Education Completed: 1. Described result of evaluation. (SCHOOL STANDARDS COACH educated risk for reflux aspiration, vomiting, and choking due to extent of esophageal retention and SCHOOL STANDARDS COACH reviewed images w/ pt. SCHOOL STANDARDS COACH provided written handout of recommendations. Pt verbalized understanding.), 2. Pt understands evaluation & agrees with goals and treatment plan. and 7. Pt requires further education on strategies & risks. Status Active ST Patient: Active Contact Information [facility] Speech Therapy:: Whit Miller M.A. CCC-SCHOOL STANDARDS COACH? Speech-Language Pathologist?? [facility] [address] [place] [address]? [email or web address]?? [phone]
== END | disposition home or self-care (01) ==
LOC: RAD 12:56
PROVIDERS: PCP Internal Medicine; Referring Provider Internal Medicine Gastroenterology; Visit Provider Internal Medicine Gastroenterology
DX: R13.10 Dysphagia, unspecified (principal); N81.6 Rectocele
CPT/HCPCS: 74230; 92611

== ENCOUNTER → 2024-09-15 | Outpatient (CLI) | payer MEDICARE, OTHER, SELFPAY ==
--- NOTE | 2024-09-15 13:12 | MRI_ITS ---
STUDY: MR PELVIS WITH T WITHOUT CONTRAST REASON FOR EXAM: Female, 84 years old. rectoceole TECHNIQUE: Standardized fat and water weighted pulse sequences were obtained in all 3 orthogonal planes, pre-and post contrast administration. 10CC CLARISCAN was administered for the contrast portion of the examination. COMPARISON: None. FINDINGS: Normal urinary bladder. Normal visualized small intestine. There are multiple colonic diverticula of the sigmoid colon consistent with chronic diverticulosis. There is no pelvic fluid. There is no pelvic mass lesion or lymphadenopathy. Normal visualized pelvic arteries. Normal osseous structures. Normal abdominal wall. MRI/Pelvis W/WO Contrast IMPRESSION: Sigmoid diverticulosis without diverticulitis. Electronically Signed: Rakesh Harvey MD at 10:53 EST ,
[2024-09-15 13:54] LABS: CREATININE FINGERSTICK < 1.0 mg/dL (0.55-1.02); EGFR FINGERSTICK > 60.0000 mL/min (>60)
== END | disposition home or self-care (01) ==
LOC: MRI 13:10
PROVIDERS: PCP Internal Medicine; Referring Provider Internal Medicine Gastroenterology; Visit Provider Internal Medicine Gastroenterology
DX: N81.6 Rectocele (principal)
CPT/HCPCS: 72197; A9575

== ENCOUNTER → 2024-09-20 | Outpatient (CLI) | payer MEDICARE, OTHER, SELFPAY ==
--- NOTE | 2024-09-20 10:11 | NM_ITS ---
CLINICAL: 84-year-old female with history of diarrhea. SEMI-SOLID PHASE 99m Tc SULFUR COLLOID GASTRIC EMPTYING STUDY COMPARISON: MRI of the pelvis report 09/15/2024 FINDINGS: The patient was administered 1.1 mCi of 99m Tc sulfur colloid mixed with oatmeal and consumed per os. Image acquisitions in the anterior-posterior projections were obtained for 60 minutes. There is prompt visualization of the stomach. There is no gastroesophageal reflux identified. First order kinetics are maintained throughout the duration of the acquisitions. The T ? linear fit was calculated to be 58.08 minutes, (Normal: 12-56 minutes). NM/Gastric Emptying Study IMPRESSION: 1. ABNORMAL 99m Tc sulfur colloid semi-solid phase (oatmeal) gastric emptying imaging examination. A. There is delayed semi-solid phase gastric emptying compared to normal controls with maintained first order kinetics throughout all components of the examination. (Marita et al, J Nucl Med Tech 38: 186, 2010). Electronically Signed: Rakesh Albright DO at 8:34 EST ,
== END | disposition home or self-care (01) ==
LOC: NM 10:11
PROVIDERS: PCP Internal Medicine; Referring Provider Internal Medicine Gastroenterology; Visit Provider Internal Medicine Gastroenterology
DX: N81.6 Rectocele (principal); R19.7 Diarrhea, unspecified
CPT/HCPCS: 78264; A9541

== ENCOUNTER → 2024-09-27 | Outpatient (CLI) | payer MEDICARE, OTHER, SELFPAY ==
--- NOTE | 2024-09-27 09:08 | RAD_ITS ---
STUDY: X-RAY - ABDOMEN/PELVIS REASON FOR EXAM: Female, 84 years old. Calculus of kidney TECHNIQUE: Single AP view of the abdomen / pelvis. COMPARISON: August 26, 2023. FINDINGS: Normal visualized lung bases. There is an unremarkable bowel gas pattern. The visualized liver, spleen and kidneys are grossly normal in size and morphology. Normal soft tissue structures. 2 punctate radiodensities noted over the left renal region and 2-3 similar densities right kidney. Multiple phleboliths noted in the pelvis bilaterally. Moderate dextroconvex scoliosis and spondylosis. Laminectomy and metallic fixation L4-5. RAD/Abdomen Single View IMPRESSION: Possible bilateral nephroliths as above. These appear more conspicuous. Electronically Signed: Scott Stern MD at 0:01 EST ,
== END | disposition home or self-care (01) ==
LOC: RAD 09:04
PROVIDERS: PCP Internal Medicine; Referring Provider Urology; Visit Provider Urology
DX: N20.0 Calculus of kidney (principal)
CPT/HCPCS: 74018

== ENCOUNTER 2024-10-25 13:00 | Outpatient (RCR) | payer MEDICARE, OTHER, SELFPAY ==
--- NOTE | 2024-10-19 15:08 | HP.PTEVAL_ITS ---
Patient's Visit Information Visit Information Visit Information: ECHO REED is a 84 year old F referred to Physical Therapy by JOSTIN Roth with a diagnosis of Spinal stenosis. Date of Evaluation: 10/19/24 Physical Therapist: Tawanda Roblero, PT, ATC Visit Plan Frequency: 2x /Week Duration: 2 Weeks Plan: Goes by MARÍA Issue and instruct pt on HEP of postural edu, SKTC/DKTC, core stab ex's, and body mechanics over next 3-4 treatments Subjective Subjective: Pt reports she has had this pain for the past year. Pt notes the p ain is intermittent in nature, and notes the severity of the pain differs. Pt reports some times her pain is so intense, there is nothing she can do to help it. Pt notes the pain starts on her lateral L hip and radiates back to the glute region. Pt reports the pain never descends into her L LE. Pt notes she is currently seeing a chiropractor for this pain as well. Pt reports she has had x- rays recently but has not been told any results. Pt reports occasional sleep difficulty secondary to pain. Pt reports all house chores increase her pain (sweeping her floors and vacuuming). Pt also notes prolonged standing, prolonged walking, and prolonged sitting increases her pain. 2/10 pain while sitting here in the clinic, 7/10 pain at worst Pain LBP: Pain Intensity (Out of 10): 2 Pain Intensity Range: 7 Objective Objective: Neuro: B LE sensation is WNL to light touch. B patellar reflex= 1/3 MMT: R LE is grossly 5/5 while L LE is grossly 4/5 throughout ROM: Pt is moderately limited with extension. All other motions are WNL Repeated movements: RFIS 10x3 NE; RENATO 10x3 increased central LBP; Prone prop 1 min x 2 NE; SKTC/DKTC 3 x 10 sec NE All special tests for the L hip were negative today Balance/Special Test Scores Oswestry Low Back Score: 13 Goals Goal 1:: I with HEP after 2-3 sessions Goal Time Frame: 2-4 Weeks Rehabilitation Potential Physical Therapy Diagnosis: Pt has L glute and hip pain at this time secondary to spinal stenosis Rehabilitation Potential: Good Anticipated Interventions Patient/Client Instruction: Educate patient on: Condition and Plan of Care For the Purpose of:: To improve self management Therapeutic Exercise to Include: Strength training, Body mechanics, Postural training and Dynamic Lumbar Stabilization For the Purpose of:: To decrease pain, To improve muscle performance and motor function and To increase tolerance to activity/condition/position Text: Thank you for the opportunity to evaluate your patient. For Medicare and Medicare HMO plans, please review the plan of care and approve it. It will need to be FAXED BACK to us at [phone] for Medicare purposes. For Medicare only, by signing this I certify the plan of care. Please let me know if there are questions or concerns regarding this plan of care. Physician Signature: Date:
--- NOTE | 2024-11-21 09:55 | HP.PT.NRP ---
Patient Information Patient Information: ECHO REED was seen in my office for initial evaluation on 10/19/24. The following Plan of Care was established for this patient: POC Established Initial Frequency: 2x /Week Initial Duration: 2 Weeks Anticipated Interventions Patient/Client Instruction: Educate patient on: Condition and Plan of Care For the Purpose of:: To improve self management Therapeutic Exercise to Include: Strength training, Body mechanics, Postural training and Dynamic Lumbar Stabilization For the Purpose of:: To decrease pain, To improve muscle performance and motor function and To increase tolerance to activity/condition/position Last Seen Last Seen: This patient was last seen in our office . Pertinent comments regarding their Physical therapy will appear below: Pt phoned the clinic on 11/17 to report she is doing fine and doesnt need further PT. At this point I will be discontinuing this patient from physical therapy. I would be happy to see this patient again in the future if found appropriate by the physician. Thank you! Tawanda Roblero, PT, ATC Balance/Gait/Functional tests Balance/Special Test Scores Oswestry Low Back Score: 13
== END 2024-10-25 19:00 | disposition home or self-care (01) ==
LOC: PT 13:00
PROVIDERS: PCP Internal Medicine; Referring Provider Student in an Organized Health Care Education/Training Program; Visit Provider Student in an Organized Health Care Education/Training Program
DX: M48.061 Spinal stenosis, lumbar region without neurogenic claudication (principal)
CPT/HCPCS: 97110; 97161

== ENCOUNTER → 2024-11-07 | Outpatient (CLI) | payer MEDICARE, OTHER, SELFPAY | END | disposition home or self-care (01) | LOC: LAB 11:37 | PROVIDERS: PCP Internal Medicine; Referring Provider Internal Medicine Gastroenterology; Visit Provider Internal Medicine Gastroenterology | DX: E03.9 Hypothyroidism, unspecified (principal) | CPT/HCPCS: 36415; 84443 ==

== ENCOUNTER → 2024-12-19 | Outpatient (CLI) | payer MEDICARE, OTHER, SELFPAY ==
[2024-12-19 08:53] LABS: Absolute Lymphocyte Count 1.45 X10^3/uL (0.83-4.51); Absolute Neutrophil Count 3.6 X10^3/uL (2.0-7.7); Basophil# 0.05 X10^3/uL; Basophil% 0.8 % (0-1); Eosinophil# 0.22 X10^3/uL; Eosinophils% 3.7 % (0-5); Hemoglobin 12.1 g/dL (12.0-15.0); Lymphocyte # 1.45 X10^3/ul (0.83-4.51); Lymphocyte % 24.1 % (19-41); Mean Corp Hgb Conc 33.6 g/dL (32-36); Mean Corpuscular Hgb 31.2 pg (27.0-32.0); Mean Corpuscular Volume 92.8 fL (81-99); Mean Platelet Vol. 9.3 fl (6.2-12.0); Monocyte# 0.67 X10^3/uL; Monocyte% 11.1 % (0-10); NRBC Flagged by Analyzer 0 % (0-5); Neutrophil # 3.62 X10^3/uL (2.7-7.7); Neutrophil % 60.1 % (47-70); Platelet Count 365 K/mm3 (150-450); RBC Distribution Width SD 40.5 fl (35.1-43.9); RET-HE 33.9 pg (30-35); Red Blood Count 3.88 M/mm3 (4.2-5.4)
[2024-12-19 09:56] LABS: Ferritin 117 ng/mL (22-378); Iron 80 ug/dL (50-170)
[2024-12-21 15:08] LABS: Albumin 3.6 g/dL (2.9-4.4); Alpha-1-Globulins 0.3 g/dL (0.0-0.4); Alpha-2-Globulins 0.8 g/dL (0.4-1.0); Immunoglobulin A 91 mg/dL (64-422); Immunoglobulin G 391 mg/dL (586-1602); Immunoglobulin M 44 mg/dL (26-217); PROEL- TOTAL PROTEIN 6.4 g/dL (6.0-8.5)
== END | disposition home or self-care (01) ==
LOC: LAB 08:26
PROVIDERS: PCP Internal Medicine; Referring Provider Internal Medicine Gastroenterology; Visit Provider Internal Medicine Gastroenterology
DX: D64.9 Anemia, unspecified (principal); K92.2 Gastrointestinal hemorrhage, unspecified
CPT/HCPCS: 36415; 82728; 82784; 83540; 84165; 85025; 85045; 86334

== ENCOUNTER 2024-12-27 09:28 | Outpatient (RCR) | payer MEDICARE, OTHER, SELFPAY ==
--- NOTE | 2024-12-27 10:29 | HP.PTEVAL ---
Patient's Visit Information Visit Information Visit Information: ECHO REED is a 84 year old F referred to Physical Therapy by Dr. Dedra Winchester DPM with a diagnosis of Gait unsteadiness. Date of Evaluation: 12/27/24 Physical Therapist: Tawanda Roblero, PT, ATC Visit Plan Frequency: 1x/Week Duration: 1 Week Plan: Contact William cabrera to schedule appointment for proper fitting of appropriate brace Subjective Subjective: Pt reports she had a R TKA performed 3 years ago. Pt notes ever since then, she has noticed a little instability while ambulating secondary to having one straight knee, and one bow legged knee. Pt reports she has not experienced any falls over this issue, but notes she does stumble often leading up to near fall situations. Pt reports she is here today because her doctor wondered if an orthopedic brace would help her to have a more stable knee. Pt reports good sensation in her L LE. 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 Pt lives in a one story home, but has a basement that she uses multiple times a day. Pt reports she has difficulty with stair negotiation secondary to her L knee instability. Pt reports 0/10 L knee pain while sitting here at rest, but notes L knee pain increases to 4/10 at worst. Pt reports pain is not er major concern, but the waddling that occurs with ambulation. Pain L knee pain: Pain Intensity (Out of 10): 0 Pain Intensity Range: 4 Objective Objective: Neuro: B LE sensation is WNL to light touch. ROM: B LE's are WNL and equal when compared bilaterally MMT: B LE's are WNL and equal when compared bilaterally Palpation: Mild crepitus with palpation. No obvious deformity noted this date Gait: Pt ambulates with severe valgus of L knee in stance phase. This results in a waddle pattern which most likely produces her unsteadiness. Pt did not experience any episodes of LOB. Goals Goal 1:: Pt will be fit appropriately for a L knee brace to aid her with steady ambulation Goal Time Frame: 1 Week Rehabilitation Potential Physical Therapy Diagnosis: Pt has a Hx of near falls and gait unsteadiness secondary to severe genu valgum of L knee Rehabilitation Potential: Good Anticipated Interventions Patient/Client Instruction: Educate patient on: Condition and Plan of Care For the Purpose of:: To improve self management Text: Thank you for the opportunity to evaluate your patient. For Medicare and Medicare HMO plans, please review the plan of care and approve it. It will need to be FAXED BACK to us at [phone] for Medicare purposes. For Medicare only, by signing this I certify the plan of care. Please let me know if there are questions or concerns regarding this plan of care. Physician Signature: Date:
--- NOTE | 2025-03-22 13:56 | HP.PT.NRP ---
Patient Information Patient Information: ECHO REED was seen in my office for initial evaluation on 12/27/24. The following Plan of Care was established for this patient: POC Established Initial Frequency: 1x/Week Initial Duration: 1 Week Anticipated Interventions Patient/Client Instruction: Educate patient on: Condition and Plan of Care For the Purpose of:: To improve self management Last Seen Last Seen: This patient was last seen in our office . Pertinent comments regarding their Physical therapy will appear below: Pt has not returned for greater than 30 days and is discontinued at this time. At this point I will be discontinuing this patient from physical therapy. I would be happy to see this patient again in the future if found appropriate by the physician. Thank you! Tawanda Roblero, PT, ATC
== END 2024-12-27 19:00 | disposition home or self-care (01) ==
LOC: PT 09:28
PROVIDERS: PCP Internal Medicine; Visit Provider Podiatrist
DX: R26.81 Unsteadiness on feet (principal); M21.162 Varus deformity, not elsewhere classified, left knee
CPT/HCPCS: 97161

== ENCOUNTER 2025-01-05 10:01 | Day surgery (SDC) | payer MEDICARE, OTHER, SELFPAY ==
--- NOTE | 2025-01-03 12:56 | PAT.ANE_ITS ---
Pre-Assessment Diagnosis/Proposed Procedure Planned Operative Procedure(s): COLONOSCOPY Anesthesia History Anesthesia History - gyn physician: Anesthesia History - gyn physician Hx Hospitalization No 01/03/25 08:53 Any Problems With Anesthesia No 01/03/25 08:53 Cholinesterase deficiency No 01/03/25 08:53 You/Your Family Experience No 01/03/25 08:53 fever (hyperthermia) with Relationship Recent Exposure to Contagious No 02/05/23 11:24 Disease Does patient have nerve No 01/03/25 08:53 stimulator Patient instructed to have device shut off --Does patient have Pacemaker or ICD? When Was Last Pacemaker Check QUESTION #4 FULL TEXT: You/Your Family Experience fever (hyperthermia) with Anesthesia Last Oral Intake Last Oral intake: Last Oral Intake NPO since Meds taken in AM with sips of water? 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 - gyn physician: PONV - gyn physician Female Yes 01/03/25 08:53 HX of Motion Sickness No 01/03/25 08:53 HX of N/V After Surgery No 01/03/25 08:53 Non-Smoker Yes 01/03/25 08:53 Duration of Surgery greater No 01/03/25 08:53 than 60 minutes Number of Risk Factors 2 01/03/25 08:53 PONV Score Moderate Risk 01/03/25 08:53 Height & Weight Height & Weight: Anesthesia: Height & Weight Height 5 ft 3 in 06/10/24 13:45 Respiratory Assessment Respiratory Assessment - gyn physician: Respiratory Tract Infection Hx - gyn physician Hx Respiratory Tract Infection No 01/03/25 08:53 STOP Sleep Apnea STOP Sleep Apnea - gyn physician: STOP Sleep Apnea - gyn physician Hx Hypertension Yes 01/03/25 08:53 Hx Sleep Apnea No 01/03/25 08:53 CPAP BIPAP Do you snore loudly (louder No 01/03/25 08:53 than talking or can be heard Do you often feel tired/ No 01/03/25 08:53 fatigued/ sleepy during daytime? Has anyone observed you stop No 01/03/25 08:53 breathing during sleep? STOP Results Negative 01/03/25 08:53 QUESTION #5 FULL TEXT : Do you snore loudly (louder than talking or can be heard through closed doors)? Tobacco Use History Tobacco Use History - gyn physician: Tobacco Use History - gyn physician Tobacco Use Smoking Status Never smoker 01/03/25 08:53 Hx Tobacco Use No 01/03/25 08:53 Years Smoking Packs Smoked per Day Smoking Cessation Date was within the last 15 years Hx Smoking Cessation Date Hx Smoking Cessation Counseling Hematologic Medial History Hematologic Hx - gyn physician: Hematologic Medical Hx - nursing resident Hx of Blood Transfusion No 01/03/25 08:53 Hx of Transfusion in last 3 No 01/03/25 08:53 Months Date of Last Transfusion (if within last 3 months) Ever experience any problems No 01/03/25 08:53 with transfusion(s)? Specify any problems Hx of Preganancy in last 3 No 01/03/25 08:53 Months Nurse Filling Out Transfusion VLEHMAN 01/03/25 08:53 & Questions: Date: 01/03/25 01/03/25 08:53 Time: 08:59 01/03/25 08:53 Patient unable to answer at this time (ie. confused, unrespo /Reproduction History /Reproductive History - gyn physician: /Reproductive Hx- gyn physician Hx Now No 01/03/25 08:53 Gestational Age (in weeks): EDC: Hx Hx Para Hx Section SAB No 01/03/25 08:53 PFSH Medical History (Reviewed 01/03/25 @ 10:00 by Melina Greene RETAIL ADVERTISING ACCOUNT EXECUTIVE, RETAIL ADVERTISING ACCOUNT EXECUTIVE-C) History of stress test Cardiology follow-up encounter Congenital spondylolysis Pharyngeal dysphagia Dizziness and giddiness Elevated fasting glucose IBS (irritable bowel syndrome) Hypercholesteremia Dysphagia Diverticulosis small intestine Diverticula of colon Diarrhea Benign neoplasm of colon Renal stone Wears glasses Post-menopausal Arthritis Low iron Back pain History of IBS Non-smoker History of echocardiogram Cardiology follow-up encounter Acute blood loss anemia Spinal stenosis Essential hypertension Elevated coronary artery calcium score Dizziness Left bundle branch block Home Medications ?Medication ?Instructions ?Recorded ?Last Taken ?Type garlic 1,000 mg capsule 2,400 mg PO DAILY supplement 12/13/19 Unknown History ascorbic acid (vitamin C) 500 mg 1 g PO DAILY@0800 sup plement 12/20/20 Unknown History tablet coenzyme Q10 100 mg capsule 100 mg PO DAILY heart supp lement 12/20/20 Unknown History calcium 600 mg capsule 600 mg PO DAILY 01/29/23 Unk nown History gabapentin 100 mg capsule 100 mg PO QHS 01/06/24 Unkno wn History meloxicam 7.5 mg tablet 7.5 mg PO DAILY 01/06/24 Unk nown History cholecalciferol (vitamin D3) 25 25 mcg PO QDAY 4 Unknown History mcg (1,000 unit) capsule magnesium 250 mg tablet 250 mg PO QDAY 08/09/24 Unkn own History omega-3 fatty acids-fish oil 360 1 cap PO QDAY 4 Unknown History mg-1,200 mg capsule (Fish Oil) turmeric root extract 500 mg 500 mg PO QDAY 08/09/24 U nknown History capsule multivitamin 1 tab PO QDAY 11/07/24 Unkno wn History metoprolol tartrate 25 mg tablet 25 mg PO BID #60 tabs 12/22/24 Unknown Rx ARNICARE 1 ea PO BID 01/03/25 Unknown History Lactobacillus rhamnosus-Bifidobac. 1 cap PO DAILY 12/20 02/12 Unknown History animalis 3 billion cell capsule ([employer]) budesonide 3 mg 3 mg PO QAM 01/03/25 Unknown History capsule,delayed,extended release coffee extract 100 mg-phosphatidyl 1 cap PO DAILY 12/20 02/12 Unknown History serine 100 mg capsule (Mind and Memory) glucosamine 750 dp-[id number]-twe 1 tab PO DAILY 12/20 02/12 Unknown History no1 644 mg-C 30 mg-kamila 1 mg tablet (Osteo Bi-Flex Triple Strength) Allergy/AdvReac Type Severity Reaction Status Date / Time cigarette smoke Allergy Intermediate difficulty Verified 01/03/25 10:00 breathing Seasonal Allergies: Uncoded Allergy SINUSES Verified 01/03/25 10:00 latex AdvReac Mild Skin Verified 01/03/25 10:00 irritation, and skin tearing hydrocodone (From [place]) AdvReac suicidal Verified 01/03/25 10:00 oxycodone AdvReac flu-like Verified 01/03/25 10:00 symptoms tramadol AdvReac suicidal Verified 01/03/25 10:00 Family History Father Negative for ASCVD Colon cancer Mother Negative for ASCVD Colon cancer Brother Lung cancer Sister Bile duct cancer Lung cancer Other Neoplasm of gastrointestinal tract Surgical History H/O hand surgery History of back surgery (06/2020) History of total knee arthroplasty (01/01/21) Hx of cataract surgery S/P trigger finger release History of carpal tunnel release of both wrists History of lateral meniscus repair of right knee Social History household members: spouse housing: house Smoking Status: Never smoker second hand exposure: No alcohol intake: never substance use type: does not use caffeine: Yes Type: coffee and tea what type of physical activity do you participate in: walking and additional details: exercises for her back and knee frequency: daily seatbelt use: always do you feel safe at home: Yes additional social history: denies vaping, denies marijuana use, denies edibles, denies aspirin and ibuprofen use denies family history of blood clotting disorders Audit: Pertinent Findings Pertinent Findings EKG Perinent findings: January 03, 2025. Sinus rhythm. Left bundle branch block. No change from December 24, 2020. Stress test pertinent findings: March 23, 2019. Probably normal pharmacologic myocardial perfusion stress test. Echo (EF%) pertinent findings: March 12, 2022. Ejection fraction 55%. PA systolic pressure is 37 mmHg. No aortic stenosis is noted. Consult pertinent findings: January 03, 2025. Jc PECK-C. 1. Essential gstpliatwhlp-ljly-xzqhgfasni at this time. 2. Left bundle branch block-appears stable. 3. Palpitations-latest 14-day monitor showed sinus rhythm. Continue metoprolol. 4. Preop ujoifgdgu-tlbvmuqwsup-gnbsfmy is cleared from cardiac standpoint. Recommendation Anesthesia Recommendation Anesthesia recommendation: OPTIMIZED for anesthesia
[2025-01-05] VITALS (10 sets, daily range): BP systolic 82–130; BP diastolic 54–71; PULSE 63–73; RESP 14–18; TEMP 36.3–36.7; O2SAT 94–98; BMI 22.9
--- NOTE | 2025-01-05 11:00 | COLBX_PTH ---
PATIENT: ECHO REED LOC: EN U#:[id number] AGE/SX: 84/F ROOM: RE01/05/[address]: Dr. Jose De Jesus Gonzalez DO : 1940 BED: DIS: 01/05/2025 SPEC #: [id number] RECD: 01/05/25 13:31 STATUS: GE JASMINE #: [id number] DENNIS: 01/05/25 11:[address]: Jose De Jesus Gonzalez DEPT: SURGICAL PATHOLOGY RECD BY: Gui Saha ENTERED: 01/05/25 13:31 SP TYPE: COLON BX BREONNA DR: Dr. Charisma Healy MD Tissues: A - Cecum, NOS B - COLON BIOPSY Procedures: Surgery Specimen Level IV HEADER OPERATION: Colonoscopy, biopsy PRE-OP DIAGNOSIS: Rectocele, dysphagia, gastroparesis, family history of colon cancer TISSUE SUBMITTED: A- Cecum polyp biopsy, B- Random colonic biopsy MICROSCOPIC DIAGNOSIS A. Colon, cecum, polyp, biopsy: * Tubular adenoma B. Colon, random, biopsy: * Colonic mucosa with no pathologic change MICROSCOPIC DESCRIPTION Slides are reviewed. GROSS DESCRIPTION A. Received in formalin in a container labeled with the patient's name, date of , and cecum polyp biopsy is a 0.3 x 0.2 x 0.2 cm fragment of ochoa-pink mucosal tissue. Submitted in toto in A1. B. Received in formalin in a container labeled with the patient's name, date of , and random colonic biopsy are multiple ochoa-pink fragments of mucosal tissue measuring at 1.4 x 0.5 x 0.2 cm in aggregate. Submitted in toto in B1. [facility] 01/06/2025 CPT:19577t3
--- NOTE | 2025-01-05 11:04 | PCM.PRE.AN2 ---
ASA Classification* ASA Classification ASA Classification: 2 Assessment & Plan Anesthesia* Anesthesia Assessment Anesthesia Assessment: Discussed sedation and/or anesthesia options, risks, benefits, and alternatives with patient/parents/legal guardian/POA. Questions invited. The patient/parents/legal guardian/POA seems to understand and agrees to proceed with anesthesia plan. Reviewed the physical assessment, medical history, allergy history and patient home medications list prior to surgery/procedure/anesthetic and documented any changes. Performed airway and anesthesia risk assessments. Anesthesia Type Anesthesia Type: MAC History Source History Obtained from:: Patient and Chart Anesthesia Focused Assessment* Temperature: 97.8 F Pulse Rate: 64 Blood Pressure: 130/60 Respiratory Rate: 18 Pulse Ox: 98 Oxygen Delivery Method: Room Air Airway Assessment Mouth opens: >3 cm Mallampati Score: II Teeth Condition: Caps/Crowns (Patient has several crowns. They are all tight.) Neck Range of motion (ROM): Full ROM Focused Labs Anesthesia Preop lab: CBC WBC 6.0 K/mm3 (4.4-11.0) 12/19/24 08:32 12/19/24 RBC 3.88 M/mm3 (4.2-5.4) L 12/19/24 08:32 12/19/24 Hgb 12.1 g/dL (12.0-15.0) 12/19/24 08:32 12/19/24 Hct 36.0 % (37-47) L 12/19/24 08:32 12/19/24 Plt Count 365 K/mm3 (150-450) 12/19/24 08:32 12/19/24 CHEMISTRY Potassium 4.2 mmol/L (3.5-5.1) 01/02/21 06:28 01/02/21 Sodium 138 mmol/L (136-145) 01/02/21 06:28 01/02/21 Magnesium 2.1 mg/dL (1.6-2.6) 12/24/20 12:18 12/24/20 BUN 12 mg/dL (7-18) 01/02/21 06:28 01/02/21 Creatinine 0.72 mg/dL (0.55-1.02) 01/02/21 06:28 01/02/21 Glucose 134 mg/dL (74-106) H 01/02/21 06:28 01/02/21 POC Glucose 97 mg/dL (70-110) 01/01/21 11:34 01/01/21 TSH 2.040 uIU/mL (0.358-3.740) 11/07/24 11:52 11/07/24 COAG PT 12.6 SECONDS (11.7-14.9) 12/24/20 12:19 12/24/20 Pre-Assessment Diagnosis/Proposed Procedure Planned Operative Procedure(s): COLONOSCOPY Anesthesia History 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 When Was Last Pacemaker Check QUESTION #4 FULL TEXT: You/Your Family Experience fever (hyperthermia) with Anesthesia Last Oral Intake Last Oral intake: Last Oral Intake NPO since 07:20 01/05/25 10:34 Meds taken in AM with sips of Yes 01/05/25 10:34 water? Meds patient instructed to metoprolol 01/05/25 10:34 take am of surgery Any additional information?: Yes NPO since: 06:00 (Patient finished prep at 6 AM. She took her metoprolol at 7:20 AM.) Meds taken in AM with sips of water?: Yes PONV PONV - smoked meat preparer: PONV - smoked meat preparer Female Yes 01/03/25 08:53 HX of Motion Sickness No 01/03/25 08:53 HX of N/V After Surgery No 01/03/25 08:53 Non-Smoker Yes 01/03/25 08:53 Duration of Surgery greater No 01/03/25 08:53 than 60 minutes Number of Risk Factors 2 01/03/25 08:53 PONV Score Moderate Risk 01/03/25 08:53 Height & Weight Height & Weight: Anesthesia: Height & Weight Height 5 ft 2 in 01/05/25 10:34 Weight: 57 kg 01/05/25 10:34 Body Mass Index (BMI) 22.9 01/05/25 10:34 Respiratory Assessment Respiratory Assessment - smoked meat preparer: Respiratory Tract Infection Hx - smoked meat preparer Hx Respiratory Tract Infection No 01/03/25 08:53 STOP Sleep Apnea STOP Sleep Apnea - smoked meat preparer: STOP Sleep Apnea - smoked meat preparer Hx Hypertension Yes 01/03/25 08:53 Hx Sleep Apnea No 01/03/25 08:53 CPAP BIPAP Do you snore loudly (louder No 01/03/25 08:53 than talking or can be heard Do you often feel tired/ No 01/03/25 08:53 fatigued/ sleepy during daytime? Has anyone observed you stop No 01/03/25 08:53 breathing during sleep? STOP Results Negative 01/03/25 08:53 QUESTION #5 FULL TEXT : Do you snore loudly (louder than talking or can be heard through closed doors)? 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 Specify any problems Hx of Preganancy in last 3 No 01/03/25 08:53 Months Nurse Filling Out Transfusion VLEHMAN 01/03/25 08:53 & Questions: Date: 01/03/25 01/03/25 08:53 Time: 08:59 01/03/25 08:53 Patient unable to answer at this time (ie. confused, unrespo /Reproduction History /Reproductive History - smoked meat preparer: /Reproductive Hx- smoked meat preparer Hx Now No 01/03/25 08:53 Gestational Age (in weeks): EDC: Hx Hx Para Hx Section SAB No 01/03/25 08:53 [facility] Medical History History of stress test Cardiology follow-up encounter Congenital spondylolysis Pharyngeal dysphagia Dizziness and giddiness Elevated fasting glucose IBS (irritable bowel syndrome) Hypercholesteremia Dysphagia Diverticulosis small intestine Diverticula of colon Diarrhea Benign neoplasm of colon Renal stone Wears glasses Post-menopausal Arthritis Low iron Back pain History of IBS Non-smoker History of echocardiogram Cardiology follow-up encounter Acute blood loss anemia Spinal stenosis Essential hypertension Elevated coronary artery calcium score Dizziness Left bundle branch block Home Medications ?Medication ?Instructions ?Recorded ?Last Taken ?Type garlic 1,000 mg capsule 2,400 mg PO DAILY supplement 12/13/19 12/29/24 History ascorbic acid (vitamin C) 500 mg 1 g PO DAILY@0800 supplement 12/20/20 12/29/24 History tablet coenzyme Q10 100 mg capsule 100 mg PO DAILY heart supplement 12/20/20 12/29/24 History calcium 600 mg capsule 600 mg PO DAILY 01/29/23 12/29/24 History gabapentin 100 mg capsule 100 mg PO QHS 01/06/24 01/04/25 History meloxicam 7.5 mg tablet 7.5 mg PO DAILY 01/06/24 12/29/24 History cholecalciferol (vitamin D3) 25 25 mcg PO QDAY 08/09/24 12/29/24 History mcg (1,000 unit) capsule magnesium 250 mg tablet 250 mg PO QDAY 08/09/24 12/29/24 History omega-3 fatty acids-fish oil 360 1 cap PO QDAY 08/09/24 12/29/24 History mg-1,200 mg capsule (Fish Oil) turmeric root extract 500 mg 500 mg PO QDAY 08/09/24 12/29/24 History capsule multivitamin 1 tab PO QDAY 11/07/24 12/29/24 History metoprolol tartrate 25 mg tablet 25 mg PO BID #60 tabs 12/22/24 01/05/25 07:20 Rx ARNICARE 1 ea PO BID 01/03/25 12/29/24 History Lactobacillus rhamnosus-Bifidobac. 1 cap PO DAILY 01/03/25 12/29/24 History animalis 3 billion cell capsule (Riboxx) budesonide 3 mg 3 mg PO QAM 01/03/25 01/04/25 History capsule,delayed,extended release coffee extract 100 mg-phosphatidyl 1 cap PO DAILY 01/03/25 12/29/24 History serine 100 mg capsule (Mind and Memory) glucosamine 750 aa-ltafilsmjor-gmz 1 tab PO DAILY 01/03/25 12/29/24 History no1 644 mg-C 30 mg-kamila 1 mg tablet (Osteo Bi-Flex Triple Strength) Allergy/AdvReac Type Severity Reaction Status Date / Time cigarette smoke Allergy Intermediate difficulty Verified 01/05/25 10:31 breathing Seasonal Allergies: Uncoded Allergy SINUSES Verified 01/05/25 10:31 latex AdvReac Mild Skin Verified 01/05/25 10:31 irritation, and skin tearing hydrocodone (From [place]) AdvReac suicidal Verified 01/05/25 10:31 oxycodone AdvReac flu-like Verified 01/05/25 10:31 symptoms tramadol AdvReac suicidal Verified 01/05/25 10:31 Family History Father Negative for ASCVD Colon cancer Mother Negative for ASCVD Colon cancer Brother Lung cancer Sister Bile duct cancer Lung cancer Other Neoplasm of gastrointestinal tract Surgical History H/O hand surgery History of back surgery (06/2020) History of total knee arthroplasty (01/01/21) Hx of cataract surgery S/P trigger finger release History of carpal tunnel release of both wrists History of lateral meniscus repair of right knee Social History household members: spouse housing: house Smoking Status: Never smoker second hand exposure: No alcohol intake: never substance use type: does not use caffeine: Yes Type: coffee and tea what type of physical activity do you participate in: walking and additional details: exercises for her back and knee frequency: daily seatbelt use: always do you feel safe at home: Yes additional social history: denies vaping, denies marijuana use, denies edibles, denies aspirin and ibuprofen use denies family history of blood clotting disorders Review of Systems (Anesthesia) ROS Narrative System reviewed and no additional complaints, except as documented.
--- NOTE | 2025-01-05 11:18 | PCM.HP.STD ---
HPI - General General Date of Admission: 01/05/25 Date of Service: 01/05/25 Chief Complaint: Lower Gi bleeding and FH colon cancer HPI Narrative ECHO REED, is a 84 F who presentsECHO REED, is a 84 F who presents to the office today for follow up. *BGI established 08.09.24 pt reports that in the past few months she has begun having some difficulty swallowing, pt reports it's mainly just with food, but will cough after drinking liquid. Pt reports daily bm and with fecal incontinence due to not having the sensation of needing to have a bm. Pt reports diarrhea a few times a week. Pt states her last EGD and Colonoscopy were in [address] Davidson. Pelvis MRI 09.15.24 Sigmoid diverticulosis without diverticulitis. GET 09.20.24 abnormal 58.08 minutes - wants her on gastroparesis diet OV 1.07.15 pt reports continued symptoms from previous visit. Pt reports that her diarrhea is worse. has a pain on her left side now that she is unable to describe. Pt reports that her urologist did an x-ray which was clean. Pill Cam 10.17.24 There was diffuse enteritis seen throughout the small bowel. There was also fat transit in the small bowel study. OV 11.07.24 pt reports continued alternating bowel movements. States that her diarrhea is not as bad as it had been previously. Pt reports that since September 28 she has had 8 episodes of diarrhea. [facility] Medical History History of stress test Cardiology follow-up encounter Congenital spondylolysis Pharyngeal dysphagia Dizziness and giddiness Elevated fasting glucose IBS (irritable bowel syndrome) Hypercholesteremia Dysphagia Diverticulosis small intestine Diverticula of colon Diarrhea Benign neoplasm of colon Renal stone Wears glasses Post-menopausal Arthritis Low iron Back pain History of IBS Non-smoker History of echocardiogram Cardiology follow-up encounter Acute blood loss anemia Spinal stenosis Essential hypertension Elevated coronary artery calcium score Dizziness Left bundle branch block Home Medications ?Medication ?Instructions ?Recorded ?Last Taken ?Type garlic 1,000 mg capsule 2,400 mg PO DAILY supplement 12/13/19 12/29/24 History ascorbic acid (vitamin C) 500 mg 1 g PO DAILY@0800 supplement 12/20/20 12/29/24 History tablet coenzyme Q10 100 mg capsule 100 mg PO DAILY heart supplement 12/20/20 12/29/24 History calcium 600 mg capsule 600 mg PO DAILY 01/29/23 12/29/24 History gabapentin 100 mg capsule 100 mg PO QHS 01/06/24 01/04/25 History meloxicam 7.5 mg tablet 7.5 mg PO DAILY 01/06/24 12/29/24 History cholecalciferol (vitamin D3) 25 25 mcg PO QDAY 08/09/24 12/29/24 History mcg (1,000 unit) capsule magnesium 250 mg tablet 250 mg PO QDAY 08/09/24 12/29/24 History omega-3 fatty acids-fish oil 360 1 cap PO QDAY 08/09/24 12/29/24 History mg-1,200 mg capsule (Fish Oil) turmeric root extract 500 mg 500 mg PO QDAY 08/09/24 12/29/24 History capsule multivitamin 1 tab PO QDAY 11/07/24 12/29/24 History metoprolol tartrate 25 mg tablet 25 mg PO BID #60 tabs 12/22/24 01/05/25 07:20 Rx ARNICARE 1 ea PO BID 01/03/25 12/29/24 History Lactobacillus rhamnosus-Bifidobac. 1 cap PO DAILY 01/03/25 12/29/24 History animalis 3 billion cell capsule (LifeNexus) budesonide 3 mg 3 mg PO QAM 01/03/25 01/04/25 History capsule,delayed,extended release coffee extract 100 mg-phosphatidyl 1 cap PO DAILY 01/03/25 12/29/24 History serine 100 mg capsule ([employer]) glucosamine 750 wu-[id number] 1 tab PO DAILY 01/03/25 12/29/24 History no1 644 mg-C 30 mg-kamila 1 mg tablet (Osteo Bi-Flex Triple Strength) Allergy/AdvReac Type Severity Reaction Status Date / Time cigarette smoke Allergy Intermediate difficulty Verified 01/05/25 10:31 breathing Seasonal Allergies: Uncoded Allergy SINUSES Verified 01/05/25 10:31 latex AdvReac Mild Skin Verified 01/05/25 10:31 irritation, and skin tearing hydrocodone (From [place]) AdvReac suicidal Verified 01/05/25 10:31 oxycodone AdvReac flu-like Verified 01/05/25 10:31 symptoms tramadol AdvReac suicidal Verified 01/05/25 10:31 Family History Father Negative for ASCVD Colon cancer Mother Negative for ASCVD Colon cancer Brother Lung cancer Sister Bile duct cancer Lung cancer Other Neoplasm of gastrointestinal tract Surgical History H/O hand surgery History of back surgery (06/2020) History of total knee arthroplasty (01/01/21) Hx of cataract surgery S/P trigger finger release History of carpal tunnel release of both wrists History of lateral meniscus repair of right knee Social History household members: spouse housing: house Smoking Status: Never smoker second hand exposure: No alcohol intake: never substance use type: does not use caffeine: Yes Type: coffee and tea what type of physical activity do you participate in: walking and additional details: exercises for her back and knee frequency: daily seatbelt use: always do you feel safe at home: Yes additional social history: denies vaping, denies marijuana use, denies edibles, denies aspirin and ibuprofen use denies family history of blood clotting disorders ROS Constitutional Constitutional: Denies fatigue, fever(s), poor appetite, weight gain or weight loss Gastrointestinal Gastrointestinal: Denies belching, bloating, change in bowel habits, change in stool character, chewing difficulty, coffee ground emesis, constipation, cramping, diarrhea, dyspepsia, dysphagia, early satiety, excessive flatus, fecal incontinence, heartburn, hematemesis, hematochezia, hemorrhoids, loose stools, melena, nausea, odynophagia, rectal bleeding, tenesmus, vomiting or weight changes Vital Signs Vital Signs Vital Signs: 01/05/25 10:34 01/05/25 10:34 01/05/25 11:12 Temperature 97.8 F 97.8 F Temperature Source Temporal Pulse Rate 64 64 Respiratory Rate 18 18 Respiratory Pattern Normal Blood Pressure 130/60 H 130/60 H Blood Pressure Mean 83 Blood Pressure Source Monitor Blood Pressure Position Sitting Blood Pressure Location Right Arm Pulse Ox 98 98 Oxygen Delivery Method Room Air Room Air Weight Weight: 125 lb 10.616 oz Body Mass Index (BMI) 22.9 Physical Exam Const alert, oriented x3, no apparent distress and healthy appearing General Appearance: cooperative GI normal to inspection, nondistended, normoactive bowel sounds, soft to palpation, non-tender and non-distended Percussion: normal to percussion Rectal Exam: deferred Assessment & Plan Assessment/Plan (1) GI bleed: (2) Family history of colon cancer: PLAN: ROS Const Constitutional: No fatigue, fever(s) or weight change ENT ENT: No difficulty swallowing Gastro GI: Positive for constipation and diarrhea; No abdominal pain, belching, bloating, change in bowel habits, change in stool character, coffee ground emesis, cramping, heartburn, difficulty swallowing, feeling full early, excessive flatus, incontinent of stools, Vomiting blood/hematemesis, Blood in stool, loose stools, Black,tarry stools, nausea/dyspepsia, pain with swallowing, vomiting or other Musc Musculoskeletal: Positive for numbness, tingling and sciatica; No joint pain Skin Skin: No yellowing of the eye or itchy eyes Neuro Neurology: Positive for numbness and tingling Psych Psychiatric: No anxiety and No depression Endo Endocrine: No fatigue or weight change Aller/Imm Allergy/Immunologic: No itchy eyes Rafiq/Lymp Hematologic/Lymphatic: No easy bleeding or easy bruising Assessment and Plan Assessment and Plan (1) Rectocele: Status: Acute Plan: A rectocele could be contributing to her symptoms but she still should have a solid stool. We will do inflammatory bowel disease testing, other testing for secretory diarrhea. After we have this workup done she may benefit from a colonoscopy. She had undergone anorectal manometry. We ordered stool studies including fecal lactoferrin, fecal calprotectin, stool for lipids. (2) Dysphagia: Status: Acute Plan: It sounded like she had oropharyngeal dysphagia more than esophageal dysphagia. She recommended a video swallow to see if there is any motility issue involving the oropharynx with possible transfer dysphagia into the esophagus. However it has not been bothering her at this time. So we will hold off on further evaluation of her oropharyngeal dysphagia (3) Gastroparesis: Status: Acute Plan: Her gastric emptying study was prolonged at 58 minutes. We will put her on a gastroparesis diet. (4) Family history of colon cancer: Status: Acute Plan: She has a family history of colon cancer and also personal history of polyps. Therefore she will undergo surveillance colonoscopy. She was explained alternatives, risk and benefits include not withstanding bleeding, infection, sepsis, perforation, need emergent urgent . She will have an ASA of 3. Orders: Orders Thyroid Stim Hormone (TSH) Today E03.9 - Hypothyroidism, unspecified
--- NOTE | 2025-01-05 12:35 | PCM.POST.ANE ---
Anesthesia: Postop Eval I Current Vital Signs Temperature: 97.4 F Pulse Rate: 72 Blood Pressure: 84/54 Respiratory Rate: 16 Pulse Ox: 94 Oxygen Delivery Method: Room Air Assessment Airway patent: Yes Spontaneous unlabored respirations: Yes Mental status: Asleep nausea: No Vomiting: No Anesthesia Complication: No Fluid Hydration Crystalloid volume administer (ml): 50 Total IV fluid infused: 50 Progress Note Anesthesia document: Postop Eval 1 completed: Yes
--- NOTE | 2025-01-05 12:41 | OP.COLON_ITS ---
Patient Name: Mark Anthony Cortes Procedure Date: 01/05/2025 11:58 AM Date of : 1940 Age: 84 Procedure: Colonoscopy Indications: Rectal bleeding Providers: Jose De Jesus Gonzalez DO Medicines: Monitored Anesthesia Care Patient Profile: This is an 84 year old female. Refer to note in patient chart for documentation of history and physical. Last Colonoscopy: 5 years ago. Complications: No immediate complications. Procedure: Pre-Anesthesia Assessment: - Prior to the procedure, a History and Physical was performed, and patient medications and allergies were reviewed. The patient is competent. The risks and benefits of the procedure and the sedation options and risks were discussed with the patient. All questions were answered and informed consent was obtained. Patient identification and proposed procedure were verified by the physician in the pre-procedure area. Mental Status Examination: alert and oriented. Airway Examination: normal oropharyngeal airway and neck mobility. Respiratory Examination: clear to auscultation. CV Examination: normal. Prophylactic Antibiotics: The patient does not require prophylactic antibiotics. Prior Anticoagulants: The patient has taken no anticoagulant or antiplatelet agents except for NSAID medication. ASA Grade Assessment: II - A patient with mild systemic disease. After reviewing the risks and benefits, the patient was deemed in satisfactory condition to undergo the procedure. The anesthesia plan was to use monitored anesthesia care (MAC). Immediately prior to administration of medications, the patient was re-assessed for adequacy to receive sedatives. The heart rate, respiratory rate, oxygen saturations, blood pressure, adequacy of pulmonary ventilation, and response to care were monitored throughout the procedure. The physical status of the patient was re-assessed after the procedure. After I obtained informed consent, the scope was passed under direct vision. Throughout the procedure, the patient's blood pressure, pulse, and oxygen saturations were monitored continuously. The Colonoscope was introduced through the anus and advanced to the cecum, identified by appendiceal orifice and ileocecal valve. The colonoscopy was performed without difficulty. The patient tolerated the procedure well. The quality of the bowel preparation was adequate. The ileocecal valve, appendiceal orifice, and rectum were photographed. Scope In: 12:07:21 PM Scope Withdrawal Time 0 hours 10 minutes 23 seconds Scope Out: 12:25:23 PM Total Procedure Duration Time 0 hours 18 minutes 2 seconds Findings: Hemorrhoids were found on perianal exam. Moderate rectal prolapse was present. Retroflexion in the rectum was not performed due to abnormal anatomy. Localized moderate inflammation characterized by congestion (edema), erosions, erythema, friability and granularity was found in the rectum. Multiple small and large-mouthed diverticula were found in the entire colon. An area of mildly congested mucosa was found in the sigmoid colon, in the descending colon, in the transverse colon, at the hepatic flexure and in the ascending colon. Biopsies were taken with a cold forceps for histology. Verification of patient identification for the specimen was done. Estimated blood loss was minimal. A 5 mm polyp was found in the cecum. The polyp was sessile. The polyp was removed with a jumbo cold forceps. Resection and retrieval were complete. Verification of patient identification for the specimen was done. Estimated blood loss was minimal. Impression: - Hemorrhoids found on perianal exam. - Rectal prolapse. - Localized moderate inflammation was found in the rectum [Colitis (Autoimpression)]. - Diverticulosis in the entire examined colon. - Congested mucosa in the sigmoid colon, in the descending colon, in the transverse colon, at the hepatic flexure and in the ascending colon. Biopsied. Recommendation: - Discharge patient to home. - Resume previous diet. - Continue present medications. - Await pathology results. - Repeat colonoscopy is recommended to check healing. The colonoscopy date will be determined after pathology results from today's exam become available for review. Procedure Code(s): --- Professional --- 99571, Colonoscopy, flexible; with biopsy, single or multiple CPT copyright 2021 [employer]. All rights reserved. The codes documented in this report are preliminary and upon bank examiner review may be revised to meet current compliance requirements. Jose De Jesus Gonzalez DO 01/05/2025 12:40:45 PM This report has been signed electronically. Number of Addenda: 0 Note Initiated On: 01/05/2025 11:58 AM
--- NOTE | 2025-01-05 12:41 | OP.CCLET_ITS ---
01/05/2025 Charisma Healy [address] [place] [address] Re : Colonoscopy procedure for Mark Anthony Cortes Dear Dr. Healy This procedure was performed on December. My impressions and recommendations are as follows: Impressions : - Hemorrhoids found on perianal exam. - Rectal prolapse. - Localized moderate inflammation was found in the rectum [Colitis (Autoimpression)]. - Diverticulosis in the entire examined colon. - Congested mucosa in the sigmoid colon, in the descending colon, in the transverse colon, at the hepatic flexure and in the ascending colon. Biopsied. Recommendations : - Discharge patient to home. - Resume previous diet. - Continue present medications. - Await pathology results. - Repeat colonoscopy is recommended to check healing. The colonoscopy date will be determined after pathology results from today's exam become available for review. My findings are described in the full procedure note, which is enclosed. If I can be of further assistance, please feel free to contact me at . Sincerely, Jose De Jesus Gonzalez, 01/05/2025 12:40:45 PM This report has been signed electronically.
--- NOTE | 2025-01-05 14:48 | PCM.POSTANE2 ---
Anesthesia Postop Eval I Sum Postop Eval Completion status Anesthesia document: Postop Eval 1 completed: Yes Anesthesia Postop Eval I Summary Anesthesia Postop Eval I Summary: Anesthesia Postop Eval I: Assessment Summary Airway patent Yes 01/05/25 12:36 [email or web address] Spontaneous unlabored Yes 01/05/25 12:36 [email or web address] respirations Mental status Asleep 01/05/25 12:36 [email or web address] nausea No 01/05/25 12:36 [email or web address] Vomiting No 01/05/25 12:36 [email or web address] Anesthesia Postop Eval I: Fluid Summary Crystalloid volume administer 50 01/05/25 12:36 [email or web address] (ml) Colloids volume administered ( ml) Blood Product volume administered (ml) Total IV fluid infused 50 01/05/25 12:36 [email or web address] Anesthesia Postop Eval I: Summary Notes Anesthesia Complication No 01/05/25 12:36 [email or web address] Anesthesia Complication Comment: Post-operative progress note Anesthesia: Postop Eval II Evaluation Mental status: Awake and Calm Pain Level: 0 nausea: No Vomiting: No Complications Anesthesia Complication: No
== END 2025-01-05 13:49 | disposition home or self-care (01) ==
LOC: EN 10:02 → AC 10:04
PROVIDERS: PCP Internal Medicine; Referring Provider Internal Medicine; Visit Provider Internal Medicine Gastroenterology
PROC: 0DJD8ZZ Inspection of Lower Intestinal Tract, Via Natural or Artificial Opening Endoscopic (ICD-10-PCS; CPT 45378; principal; 2025-01-05 10:55)
DX: N81.6 Rectocele (principal); K62.3 Rectal prolapse; K64.9 Unspecified hemorrhoids; K57.30 Diverticulosis of large intestine without perforation or abscess without bleeding; D12.0 Benign neoplasm of cecum; I10 Essential (primary) hypertension; Z79.899 Other long term (current) drug therapy; Z80.0 Family history of malignant neoplasm of digestive organs
CPT/HCPCS: 45380; 88305; A4216; J2405

== ENCOUNTER → 2025-06-22 | Outpatient (CLI) | payer MEDICARE, OTHER, SELFPAY ==
--- NOTE | 2025-06-26 11:20 | STRESSREP_ITS ---
Stress Test Report Pharmacologic myocardial perfusion stress test. 85-year-old lady with a history of chest pain. Resting EKG demonstrates normal sinus rhythm with a left bundle branch block with a rate of 64 bpm. Resting blood pressure is 142/80 mmHg. 0.4 mg of regadenoson was infused per usual protocol followed by rapid intravenous saline flush injection. Continuous EKG monitoring was performed. The maximum heart rate was 100 bpm which was 72% of max impacted heart rate the maximum workload was 1 metabolic equivalent. At rest there were no ST or T wave changes noted to suggest ischemia and at peak infusion nonspecific ST changes were noted which did not meet the criteria for ischemia. No clinical angina is noted. The final blood pressure was 132/70 mmHg. Myocardial perfusion protocol. 13.2 mCi of technetium 99m sestamibi was injected at rest. 0.4 mg of regadenoson was infused per usual protocol. At peak infusion 42 mCi of technetium 99m sesta mibi was injected stress images were obtained stress and rest images were reconstructed and compared in the short axis vertical long and horizontal long axis. Gated images were also obtained. Perfusion SPECT analysis: Review of the stress images demonstrate normal uptake of tracer noted in all areas of the myocardium. The resting images similar demonstrated normal uptake of tracer noted in all areas of the myocardium. No areas of reversibility are noted to suggest ischemia and no previous infarct is noted. Gated SPECT analysis: The gated ejection fraction is 66%. Conclusion: Normal pharmacologic myocardial perfusion stress test. Preserved ejection fraction.
== END | disposition home or self-care (01) ==
PROVIDERS: PCP Internal Medicine; Referring Provider Nurse Practitioner Gerontology; Visit Provider Nurse Practitioner Gerontology
DX: R07.9 Chest pain, unspecified (principal); R06.02 Shortness of breath; R53.83 Other fatigue
CPT/HCPCS: 78452; 93017; A9500; A4216; J2785

== ENCOUNTER 2025-07-05 08:58 | Day surgery (SDC) | payer MEDICARE, OTHER, SELFPAY ==
--- NOTE | 2025-07-03 13:17 | PAT.ANE_ITS ---
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 When Was Last Pacemaker Check QUESTION #4 FULL TEXT: You/Your Family Experience fever (hyperthermia) with Anesthesia Last Oral Intake Last Oral intake: Last Oral Intake NPO since Meds taken in AM with sips of water? 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 Has anyone observed you stop No 07/03/25 13:08 breathing during sleep? STOP Results Negative 07/03/25 13:08 QUESTION #5 FULL TEXT : Do you snore loudly (louder than talking or can be heard through closed doors)? 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 Specify any problems Hx of Preganancy in last 3 No 07/03/25 13:08 Months Nurse Filling Out Transfusion VCHRISTIN 07/03/25 13:08 & Questions: Date: 07/03/25 07/03/25 13:08 Time: 13:09 07/03/25 13:08 Patient unable to answer at this time (ie. 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: /Reproductive Hx- diesel roller operator Hx Now No 07/03/25 13:08 Gestational Age (in weeks): EDC: Hx Hx Para Hx Section SAB No 07/03/25 13:08 FORMERLY [facility], [facility] Medical History (Updated 07/03/25 @ 13:08 by Jazmín Valdez) History of Holter monitoring History of stress test Cardiology follow-up encounter Congenital spondylolysis Pharyngeal dysphagia Dizziness and giddiness Elevated fasting glucose IBS (irritable bowel syndrome) Hypercholesteremia Dysphagia Diverticulosis small intestine Diverticula of colon Diarrhea Benign neoplasm of colon Renal stone Wears glasses Post-menopausal Arthritis Low iron Back pain History of IBS Non-smoker History of echocardiogram Cardiology follow-up encounter Acute blood loss anemia Spinal stenosis Essential hypertension Elevated coronary artery calcium score Dizziness Left bundle branch block Home Medications ?Medication ?Instructions ?Recorded ?Last Taken ?Type garlic 1,000 mg capsule 2,400 mg PO DAILY supplement 12/13/19 12/29/24 History ascorbic acid (vitamin C) 500 mg 1 g PO DAILY@0800 sup plement 12/20/20 12/29/24 History tablet coenzyme Q10 100 mg capsule 100 mg PO DAILY heart supp lement 12/20/20 12/29/24 History calcium 600 mg capsule 600 mg PO DAILY 01/29/2307/15 History gabapentin 100 mg capsule 300 mg PO QHS 01/06/2401/04 History cholecalciferol (vitamin D3) 25 25 mcg PO QDAY 4 12/29/24 History mcg (1,000 unit) capsule magnesium 250 mg tablet 250 mg PO QDAY 08/09/2412/20 History omega-3 fatty acids-fish oil 360 1 cap PO QDAY 4 07/01/25 History mg-1,200 mg capsule (Fish Oil) turmeric root extract 500 mg 1,000 mg PO QDAY 08/09/24 12/29/24 History capsule multivitamin 1 tab PO QDAY 11/07/2412/29 History Lactobacillus rhamnosus-Bifidobac. 1 cap PO DAILY 12/2012/29/24 History animalis 3 billion cell capsule ([place]) coffee extract 100 mg-phosphatidyl 1 cap PO DAILY 12/2012/29/24 History serine 100 mg capsule (Mind and Memory) glucosamine 750 [id number] 1 tab PO DAILY 12/2012/29/24 History no1 644 mg-C 30 mg-kamila 1 mg tablet (Osteo Bi-Flex Triple Strength) metoprolol tartrate 25 mg tablet 25 mg PO BID #60 tabs 03/30/25 Unknown Rx azelastine 137 mcg (0.1 %) nasal 1 spray intranasal BI D 05/26/25 Unknown History spray budesonide 3 mg 3 mg PO QAM #80 ea 06/01/25 Unknown Rx capsule,delayed,extended release meloxicam 15 mg tablet 15 mg PO DAILY 07/03/25 Unkn own History Allergy/AdvReac Type Severity Reaction Status Date / Time cigarette smoke Allergy Intermediate difficulty Verified 07/03/25 12:57 breathing Seasonal Allergies: Uncoded Allergy SINUSES Verified 07/03/25 12:57 latex AdvReac Mild Skin Verified 07/03/25 12:57 irritation, and skin tearing hydrocodone (From [place]) AdvReac suicidal Verified 07/03/25 12:57 oxycodone AdvReac flu-like Verified 07/03/25 12:57 symptoms tramadol AdvReac suicidal Verified 07/03/25 12:57 Family History Father Negative for ASCVD Colon cancer Mother Negative for ASCVD Colon cancer Brother Lung cancer Sister Bile duct cancer Lung cancer Other Neoplasm of gastrointestinal tract Surgical History (Updated 07/03/25 @ 13:08 by Jazmín Valdez) Hx of colonoscopy H/O hand surgery History of back surgery (06/2020) History of total knee arthroplasty (01/01/21) Hx of cataract surgery S/P trigger finger release History of carpal tunnel release of both wrists History of lateral meniscus repair of right knee Social History household members: spouse housing: house Smoking Status: Never smoker second hand exposure: No alcohol intake: never substance use type: does not use caffeine: Yes Type: coffee and tea what type of physical activity do you participate in: walking and additional details: exercises for her back and knee frequency: daily seatbelt use: always do you feel safe at home: Yes additional social history: denies vaping, denies marijuana use, denies edibles, denies aspirin and ibuprofen use denies family history of blood clotting disorders Audit: Pertinent Findings Pertinent Findings EKG Perinent findings: 05/26/2025. Sinus rhythm with marked sinus arrhythmia. Left bundle branch block. 61 bpm. Stress test pertinent findings: 06/26/2025. Pharmacological myocardial perfusion stress test negative. EF 66%. Consult pertinent findings: Cardiology 05/26/2025. Chest pain. Check chemical nuclear stress test to assess for ischemia. 2 hypertension chronic. Well- controlled currently. Left bundle branch block chronic. Palpitations. Chronic. Most recent EKG does not show this. 14-day event monitor demonstrated predominant sinus rhythm. Less than 1% SVE. Continue metoprolol. Recommendation Anesthesia Recommendation Anesthesia recommendation: OPTIMIZED for anesthesia
--- NOTE | 2025-07-03 13:17 | PAT.ANE_ITS ---
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 When Was Last Pacemaker Check QUESTION #4 FULL TEXT: You/Your Family Experience fever (hyperthermia) with Anesthesia Last Oral Intake Last Oral intake: Last Oral Intake NPO since Meds taken in AM with sips of water? 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 Has anyone observed you stop No 07/03/25 13:08 breathing during sleep? STOP Results Negative 07/03/25 13:08 QUESTION #5 FULL TEXT : Do you snore loudly (louder than talking or can be heard through closed doors)? 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 Specify any problems Hx of Preganancy in last 3 No 07/03/25 13:08 Months Nurse Filling Out Transfusion VCHRISTIN 07/03/25 13:08 & Questions: Date: 07/03/25 07/03/25 13:08 Time: 13:09 07/03/25 13:08 Patient unable to answer at this time (ie. 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 Hx Now No 07/03/25 13:08 Gestational Age (in weeks): EDC: Hx Hx Para Hx Section SAB No 07/03/25 13:08 FORMERLY [facility], LAT[facility] Medical History (Updated 07/03/25 @ 13:08 by Jazmín Valdez) History of Holter monitoring History of stress test Cardiology follow-up encounter Congenital spondylolysis Pharyngeal dysphagia Dizziness and giddiness Elevated fasting glucose IBS (irritable bowel syndrome) Hypercholesteremia Dysphagia Diverticulosis small intestine Diverticula of colon Diarrhea Benign neoplasm of colon Renal stone Wears glasses Post-menopausal Arthritis Low iron Back pain History of IBS Non-smoker History of echocardiogram Cardiology follow-up encounter Acute blood loss anemia Spinal stenosis Essential hypertension Elevated coronary artery calcium score Dizziness Left bundle branch block Home Medications ?Medication ?Instructions ?Recorded ?Last Taken ?Type garlic 1,000 mg capsule 2,400 mg PO DAILY supplement 12/13/19 12/29/24 History ascorbic acid (vitamin C) 500 mg 1 g PO DAILY@0800 sup plement 12/20/20 12/29/24 History tablet coenzyme Q10 100 mg capsule 100 mg PO DAILY heart supp lement 12/20/20 12/29/24 History calcium 600 mg capsule 600 mg PO DAILY 01/29/2307/15 History gabapentin 100 mg capsule 300 mg PO QHS 01/06/2401/04 History cholecalciferol (vitamin D3) 25 25 mcg PO QDAY 4 12/29/24 History mcg (1,000 unit) capsule magnesium 250 mg tablet 250 mg PO QDAY 08/09/2412/20 History omega-3 fatty acids-fish oil 360 1 cap PO QDAY 4 07/01/25 History mg-1,200 mg capsule (Fish Oil) turmeric root extract 500 mg 1,000 mg PO QDAY 08/09/24 12/29/24 History capsule multivitamin 1 tab PO QDAY 11/07/2412/29 History Lactobacillus rhamnosus-Bifidobac. 1 cap PO DAILY 12/2012/29/24 History animalis 3 billion cell capsule ([place]) coffee extract 100 mg-phosphatidyl 1 cap PO DAILY 12/2012/29/24 History serine 100 mg capsule (Mind and Memory) glucosamine 750 [id number] 1 tab PO DAILY 12/2012/29/24 History no1 644 mg-C 30 mg-kamila 1 mg tablet (Osteo Bi-Flex Triple Strength) metoprolol tartrate 25 mg tablet 25 mg PO BID #60 tabs 03/30/25 Unknown Rx azelastine 137 mcg (0.1 %) nasal 1 spray intranasal BI D 05/26/25 Unknown History spray budesonide 3 mg 3 mg PO QAM #80 ea 06/01/25 Unknown Rx capsule,delayed,extended release meloxicam 15 mg tablet 15 mg PO DAILY 07/03/25 Unkn own History Allergy/AdvReac Type Severity Reaction Status Date / Time cigarette smoke Allergy Intermediate difficulty Verified 07/03/25 12:57 breathing Seasonal Allergies: Uncoded Allergy SINUSES Verified 07/03/25 12:57 latex AdvReac Mild Skin Verified 07/03/25 12:57 irritation, and skin tearing hydrocodone (From [place]) AdvReac suicidal Verified 07/03/25 12:57 oxycodone AdvReac flu-like Verified 07/03/25 12:57 symptoms tramadol AdvReac suicidal Verified 07/03/25 12:57 Family History Father Negative for ASCVD Colon cancer Mother Negative for ASCVD Colon cancer Brother Lung cancer Sister Bile duct cancer Lung cancer Other Neoplasm of gastrointestinal tract Surgical History (Updated 07/03/25 @ 13:08 by Jazmín Valdez) Hx of colonoscopy H/O hand surgery History of back surgery (06/2020) History of total knee arthroplasty (01/01/21) Hx of cataract surgery S/P trigger finger release History of carpal tunnel release of both wrists History of lateral meniscus repair of right knee Social History household members: spouse housing: house Smoking Status: Never smoker second hand exposure: No alcohol intake: never substance use type: does not use caffeine: Yes Type: coffee and tea what type of physical activity do you participate in: walking and additional details: exercises for her back and knee frequency: daily seatbelt use: always do you feel safe at home: Yes additional social history: denies vaping, denies marijuana use, denies edibles, denies aspirin and ibuprofen use denies family history of blood clotting disorders Audit: Pertinent Findings Pertinent Findings EKG Perinent findings: 05/26/2025. Sinus rhythm with marked sinus arrhythmia. Left bundle branch block. 61 bpm. Stress test pertinent findings: 06/26/2025. Pharmacological myocardial perfusion stress test negative. EF 66%. Consult pertinent findings: Cardiology 05/26/2025. Chest pain. Check chemical nuclear stress test to assess for ischemia. 2 hypertension chronic. Well- controlled currently. Left bundle branch block chronic. Palpitations. Chronic. Most recent EKG does not show this. 14-day event monitor demonstrated predominant sinus rhythm. Less than 1% SVE. Continue metoprolol. Recommendation Anesthesia Recommendation Anesthesia recommendation: OPTIMIZED for anesthesia
[2025-07-05] VITALS (8 sets, daily range): BP systolic 96–147; BP diastolic 49–76; PULSE 68–74; RESP 16–18; TEMP 36.2–36.4; O2SAT 93–98; BMI 24.2
--- NOTE | 2025-07-05 09:24 | PCM.HP.STD ---
HPI - General General Date of Service: 07/05/25 Chief Complaint: Dysphagia and diarrhea HPI Narrative ECHO REED, is a 85 F who presents for evaluation of dysphagia and diarrhea *BGI established 08.09.24 pt reports that in the past few months she has begun having some difficulty swallowing, pt reports it's mainly just with food, but will cough after drinking liquid. Pt reports daily bm and with fecal incontinence due to not having the sensation of needing to have a bm. Pt reports diarrhea a few times a week. Pt states her last EGD and Colonoscopy were in [address] Davidson. Pelvis MRI 09.15.24 Sigmoid diverticulosis without diverticulitis. GET 09.20.24 abnormal 58.08 minutes - wants her on gastroparesis diet OV 1..25 pt reports continued symptoms from previous visit. Pt reports that her diarrhea is worse. has a pain on her left side now that she is unable to describe. Pt reports that her urologist did an x-ray which was clean. Pill Cam 1..25 There was diffuse enteritis seen throughout the small bowel. There was also fat transit in the small bowel study. OV 2.17.25 pt reports continued alternating bowel movements. States that her diarrhea is not as bad as it had been previously. Pt reports that since September 28 she has had 8 episodes of diarrhea. OV 6.19.25 pt reports that she is feeling well overall and denies GI symptoms of concern at this time. Pt reports slight constipation, but states this is better for her than loose stools. [facility] Medical History History of Holter monitoring History of stress test Cardiology follow-up encounter Congenital spondylolysis Pharyngeal dysphagia Dizziness and giddiness Elevated fasting glucose IBS (irritable bowel syndrome) Hypercholesteremia Dysphagia Diverticulosis small intestine Diverticula of colon Diarrhea Benign neoplasm of colon Renal stone Wears glasses Post-menopausal Arthritis Low iron Back pain History of IBS Non-smoker History of echocardiogram Cardiology follow-up encounter Acute blood loss anemia Spinal stenosis Essential hypertension Elevated coronary artery calcium score Dizziness Left bundle branch block Home Medications ?Medication ?Instructions ?Recorded ?Last Taken ?Type garlic 1,000 mg capsule 2,400 mg PO DAILY supplement 12/13/19 07/04/25 History ascorbic acid (vitamin C) 500 mg 1 g PO DAILY@0800 supplement 12/20/20 07/04/25 History tablet coenzyme Q10 100 mg capsule 100 mg PO DAILY heart supplement 12/20/20 07/04/25 History calcium 600 mg capsule 600 mg PO DAILY 01/29/23 07/04/25 History gabapentin 100 mg capsule 300 mg PO QHS 01/06/24 07/04/25 History cholecalciferol (vitamin D3) 25 25 mcg PO QDAY 08/09/24 07/04/25 History mcg (1,000 unit) capsule magnesium 250 mg tablet 250 mg PO QDAY 08/09/24 07/04/25 History omega-3 fatty acids-fish oil 360 1 cap PO QDAY 08/09/24 07/01/25 History mg-1,200 mg capsule (Fish Oil) turmeric root extract 500 mg 1,000 mg PO QDAY 08/09/24 07/04/25 History capsule multivitamin 1 tab PO QDAY 11/07/24 07/04/25 History Lactobacillus rhamnosus-Bifidobac. 1 cap PO DAILY 01/03/25 07/04/25 History animalis 3 billion cell capsule ([place]) coffee extract 100 mg-phosphatidyl 1 cap PO DAILY 01/03/25 07/04/25 History serine 100 mg capsule (Mind and Memory) glucosamine 750 [id number] 1 tab PO DAILY 01/03/25 07/04/25 History no1 644 mg-C 30 mg-kamila 1 mg tablet (Osteo Bi-Flex Triple Strength) metoprolol tartrate 25 mg tablet 25 mg PO BID #60 tabs 03/30/25 Unknown Rx azelastine 137 mcg (0.1 %) nasal 1 spray intranasal BID 05/26/25 07/04/25 History spray budesonide 3 mg 3 mg PO QAM #80 ea 06/01/25 07/04/25 Rx capsule,delayed,extended release meloxicam 15 mg tablet 15 mg PO DAILY 07/03/25 07/04/25 History Allergy/AdvReac Type Severity Reaction Status Date / Time cigarette smoke Allergy Intermediate difficulty Verified 07/05/25 09:33 breathing Seasonal Allergies: Uncoded Allergy SINUSES Verified 07/05/25 09:33 latex AdvReac Mild Skin Verified 07/05/25 09:33 irritation, and skin tearing hydrocodone (From [place]) AdvReac suicidal Verified 07/05/25 09:33 oxycodone AdvReac flu-like Verified 07/05/25 09:33 symptoms tramadol AdvReac suicidal Verified 07/05/25 09:33 Family History Father Negative for ASCVD Colon cancer Mother Negative for ASCVD Colon cancer Brother Lung cancer Sister Bile duct cancer Lung cancer Other Neoplasm of gastrointestinal tract Surgical History Hx of colonoscopy H/O hand surgery History of back surgery (06/2020) History of total knee arthroplasty (01/01/21) Hx of cataract surgery S/P trigger finger release History of carpal tunnel release of both wrists History of lateral meniscus repair of right knee Social History household members: spouse housing: house Smoking Status: Never smoker second hand exposure: No alcohol intake: never substance use type: does not use caffeine: Yes Type: coffee and tea what type of physical activity do you participate in: walking and additional details: exercises for her back and knee frequency: daily seatbelt use: always do you feel safe at home: Yes additional social history: denies vaping, denies marijuana use, denies edibles, denies aspirin and ibuprofen use denies family history of blood clotting disorders ROS ROS Narrative Constitutional Constitutional: Denies fatigue, fever(s), poor appetite, weight gain or weight loss Gastrointestinal Gastrointestinal: Denies belching, bloating, change in bowel habits, change in stool character, chewing difficulty, coffee ground emesis, constipation, cramping, diarrhea, dyspepsia, dysphagia, early satiety, excessive flatus, fecal incontinence, heartburn, hematemesis, hematochezia, hemorrhoids, loose stools, melena, nausea, odynophagia, rectal bleeding, tenesmus, vomiting or weight changes Physical Exam Const alert, oriented x3, no apparent distress and healthy appearing General Appearance: cooperative GI normal to inspection, nondistended, normoactive bowel sounds, soft to palpation, non-tender and non-distended Percussion: normal to percussion Rectal Exam: deferred Assessment & Plan Assessment/Plan (1) GI bleed: (2) Fatigue: (3) Family history of colon cancer: (4) Dysphagia: PLAN: Plan Assessment and Plan Assessment and Plan (1) Rectocele: Status: Acute Plan: A rectocele could be contributing to her symptoms but she still should have a solid stool. We will do inflammatory bowel disease testing, other testing for secretory diarrhea. her colonoscopy displayed ulcerative proctitis. We started her on Budesonide and she is doing well. (2) Dysphagia: Status: Acute Plan: It sounded like she had oropharyngeal dysphagia more than esophageal dysphagia. She recommended a video swallow to see if there is any motility issue involving the oropharynx with possible transfer dysphagia into the esophagus. However it has not been bothering her at this time. So we will hold off on further evaluation of her oropharyngeal dysphagia (3) Gastroparesis: Status: Acute Plan: Her gastric emptying study was prolonged at 58 minutes. We will put her on a gastroparesis diet. (4) Family history of colon cancer: Status: Acute Plan: She has a family history of colon cancer and also personal history of polyps. Therefore she will undergo surveillance colonoscopy. She was explained alternatives, risk and benefits include not withstanding bleeding, infection, sepsis, perforation, need emergent urgent . She will have an ASA of 3.]
--- NOTE | 2025-07-05 09:39 | PCM.PRE.AN2 ---
ASA Classification* ASA Classification ASA Classification: 2 Assessment & Plan Anesthesia* Anesthesia Assessment Anesthesia Assessment: Discussed sedation and/or anesthesia options, risks, benefits, and alternatives with patient/parents/legal guardian/POA. Questions invited. The patient/parents/legal guardian/POA seems to understand and agrees to proceed with anesthesia plan. Reviewed the physical assessment, medical history, allergy history and patient home medications list prior to surgery/procedure/anesthetic and documented any changes. Performed airway and anesthesia risk assessments. Anesthesia Type Anesthesia Type: MAC History Source History Obtained from:: Patient and Chart Anesthesia Focused Assessment* Temperature: 97.6 F Pulse Rate: 70 Blood Pressure: 147/76 Respiratory Rate: 16 Pulse Ox: 98 Oxygen Delivery Method: Room Air Airway Assessment Mouth opens: >3 cm Mallampati Score: II Teeth Condition: Caps/Crowns Neck Range of motion (ROM): Limited ROM Labs Anesthesia Preop lab: CBC WBC, (4.4-11.0) 6.0 K/mm3 12/19/24, 08:32 RBC, (4.2-5.4) 3.88 M/mm3 L 12/19/24, 08:32 Hgb, (12.0-15.0) 12.1 g/dL 12/19/24, 08:32 Hct, (37-47) 36.0 % L 12/19/24, 08:32 Plt Count, (150-450) 365 K/mm3 12/19/24, 08:32 CHEMISTRY Potassium, (3.5-5.1) 4.2 mmol/L 01/02/21, 06:28 Sodium, (136-145) 138 mmol/L 01/02/21, 06:28 Magnesium, (1.6-2.6) 2.1 mg/dL 12/24/20, 12:18 BUN, (7-18) 12 mg/dL 01/02/21, 06:28 Creatinine, (0.55-1.02) 0.72 mg/dL 01/02/21, 06:28 Glucose, (74-106) 134 mg/dL H 01/02/21, 06:28 POC Glucose, (70-110) 97 mg/dL 01/01/21, 11:34 TSH, (0.358-3.740) 2.040 uIU/mL 11/07/24, 11:52 COAG PT, (11.7-14.9) 12.6 SECONDS 12/24/20, 12:19 Pre-Assessment Diagnosis/Proposed Procedure Planned Operative Procedure(s): COLONOSCOPY Anesthesia History Anesthesia History - pay per click strategist: Anesthesia History - pay per click strategist Hx Hospitalization No 07/03/25 13:08 Any Problems With Anesthesia No 07/03/25 13:08 Cholinesterase deficiency No 07/03/25 13:08 You/Your Family Experience No 07/03/25 13:08 fever (hyperthermia) with Relationship Recent Exposure to Contagious Yes 07/05/25 09:34 Disease Does patient have nerve No 07/03/25 13:08 stimulator Patient instructed to have device shut off --Does patient have Pacemaker No 07/05/25 09:34 or ICD? When Was Last Pacemaker Check QUESTION #4 FULL TEXT: You/Your Family Experience fever (hyperthermia) with Anesthesia Last Oral Intake Last Oral intake: Last Oral Intake NPO since 05:00 07/05/25 09:34 Meds taken in AM with sips of No 07/05/25 09:34 water? 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 - pay per click strategist: PONV - pay per click strategist Female Yes 07/03/25 13:08 HX of Motion Sickness No 07/03/25 13:08 HX of N/V After Surgery No 07/03/25 13:08 Non-Smoker Yes 07/03/25 13:08 Duration of Surgery greater No 07/03/25 13:08 than 60 minutes Number of Risk Factors 2 07/03/25 13:08 PONV Score Moderate Risk 07/03/25 13:08 Height & Weight Height & Weight: Anesthesia: Height & Weight Height 5 ft 2 in 07/05/25 09:34 Weight: 60 kg 07/05/25 09:34 Body Mass Index (BMI) 24.2 07/05/25 09:34 Respiratory Assessment Respiratory Assessment - pay per click strategist: Respiratory Tract Infection Hx - pay per click strategist Hx Respiratory Tract Infection No 07/03/25 13:08 STOP Sleep Apnea STOP Sleep Apnea - pay per click strategist: STOP Sleep Apnea - pay per click strategist Hx Hypertension Yes: CONTROLLED ON MED 07/03/25 13:08 Hx Sleep Apnea No 07/03/25 13:08 CPAP BIPAP Do you snore loudly (louder No 07/03/25 13:08 than talking or can be heard Do you often feel tired/ No 07/03/25 13:08 fatigued/ sleepy during daytime? Has anyone observed you stop No 07/03/25 13:08 breathing during sleep? STOP Results Negative 07/03/25 13:08 QUESTION #5 FULL TEXT : Do you snore loudly (louder than talking or can be heard through closed doors)? 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 Specify any problems Hx of Preganancy in last 3 No 07/03/25 13:08 Months Nurse Filling Out Transfusion VCHRISTIN 07/03/25 13:08 & Questions: Date: 07/03/25 07/03/25 13:08 Time: 13:09 07/03/25 13:08 Patient unable to answer at this time (ie. confused, unrespo /Reproduction History /Reproductive History - pay per click strategist: /Reproductive Hx- pay per click strategist Hx Now No 07/03/25 13:08 Gestational Age (in weeks): EDC: Hx Hx Para Hx Section SAB No 07/03/25 13:08 Active Medications Active Medications: Current Medications Generic Name Dose Route Start Last Admin Trade Name Freq PRN Reason Stop Dose Admin Lactated Ringer's 1,000 mls @ 15 mls/hr 07/05/25 09:15 IV .Q48H LORENA PFSH Medical History History of Holter monitoring History of stress test Cardiology follow-up encounter Congenital spondylolysis Pharyngeal dysphagia Dizziness and giddiness Elevated fasting glucose IBS (irritable bowel syndrome) Hypercholesteremia Dysphagia Diverticulosis small intestine Diverticula of colon Diarrhea Benign neoplasm of colon Renal stone Wears glasses Post-menopausal Arthritis Low iron Back pain History of IBS Non-smoker History of echocardiogram Cardiology follow-up encounter Acute blood loss anemia Spinal stenosis Essential hypertension Elevated coronary artery calcium score Dizziness Left bundle branch block Home Medications ?Medication ?Instructions ?Recorded ?Last Taken ?Type garlic 1,000 mg capsule 2,400 mg PO DAILY supplement 12/13/19 07/04/25 History ascorbic acid (vitamin C) 500 mg 1 g PO DAILY@0800 supplement 12/20/20 07/04/25 History tablet coenzyme Q10 100 mg capsule 100 mg PO DAILY heart supplement 12/20/20 07/04/25 History calcium 600 mg capsule 600 mg PO DAILY 01/29/23 07/04/25 History gabapentin 100 mg capsule 300 mg PO QHS 01/06/24 07/04/25 History cholecalciferol (vitamin D3) 25 25 mcg PO QDAY 08/09/24 07/04/25 History mcg (1,000 unit) capsule magnesium 250 mg tablet 250 mg PO QDAY 08/09/24 07/04/25 History omega-3 fatty acids-fish oil 360 1 cap PO QDAY 08/09/24 07/01/25 History mg-1,200 mg capsule (Fish Oil) turmeric root extract 500 mg 1,000 mg PO QDAY 08/09/24 07/04/25 History capsule multivitamin 1 tab PO QDAY 11/07/24 07/04/25 History Lactobacillus rhamnosus-Bifidobac. 1 cap PO DAILY 01/03/25 07/04/25 History animalis 3 billion cell capsule (Ideapod) coffee extract 100 mg-phosphatidyl 1 cap PO DAILY 01/03/25 07/04/25 History serine 100 mg capsule (Mind and Memory) glucosamine 750 gt-ctmuospdunq-ihi 1 tab PO DAILY 01/03/25 07/04/25 History no1 644 mg-C 30 mg-kamila 1 mg tablet (Osteo Bi-Flex Triple Strength) metoprolol tartrate 25 mg tablet 25 mg PO BID #60 tabs 03/30/25 Unknown Rx azelastine 137 mcg (0.1 %) nasal 1 spray intranasal BID 05/26/25 07/04/25 History spray budesonide 3 mg 3 mg PO QAM #80 ea 06/01/25 07/04/25 Rx capsule,delayed,extended release meloxicam 15 mg tablet 15 mg PO DAILY 07/03/25 07/04/25 History Allergy/AdvReac Type Severity Reaction Status Date / Time cigarette smoke Allergy Intermediate difficulty Verified 07/05/25 09:33 breathing Seasonal Allergies: Uncoded Allergy SINUSES Verified 07/05/25 09:33 latex AdvReac Mild Skin Verified 07/05/25 09:33 irritation, and skin tearing hydrocodone (From [place]) AdvReac suicidal Verified 07/05/25 09:33 oxycodone AdvReac flu-like Verified 07/05/25 09:33 symptoms tramadol AdvReac suicidal Verified 07/05/25 09:33 Family History Father Negative for ASCVD Colon cancer Mother Negative for ASCVD Colon cancer Brother Lung cancer Sister Bile duct cancer Lung cancer Other Neoplasm of gastrointestinal tract Surgical History Hx of colonoscopy H/O hand surgery History of back surgery (06/2020) History of total knee arthroplasty (01/01/21) Hx of cataract surgery S/P trigger finger release History of carpal tunnel release of both wrists History of lateral meniscus repair of right knee Social History household members: spouse housing: house Smoking Status: Never smoker second hand exposure: No alcohol intake: never substance use type: does not use caffeine: Yes Type: coffee and tea what type of physical activity do you participate in: walking and additional details: exercises for her back and knee frequency: daily seatbelt use: always do you feel safe at home: Yes additional social history: denies vaping, denies marijuana use, denies edibles, denies aspirin and ibuprofen use denies family history of blood clotting disorders Review of Systems (Anesthesia) ROS Narrative System reviewed and no additional complaints, except as documented.
--- NOTE | 2025-07-05 09:39 | PCM.PRE.AN2 ---
ASA Classification* ASA Classification ASA Classification: 2 Assessment & Plan Anesthesia* Anesthesia Assessment Anesthesia Assessment: Discussed sedation and/or anesthesia options, risks, benefits, and alternatives with patient/parents/legal guardian/POA. Questions invited. The patient/parents/legal guardian/POA seems to understand and agrees to proceed with anesthesia plan. Reviewed the physical assessment, medical history, allergy history and patient home medications list prior to surgery/procedure/anesthetic and documented any changes. Performed airway and anesthesia risk assessments. Anesthesia Type Anesthesia Type: MAC History Source History Obtained from:: Patient and Chart Anesthesia Focused Assessment* Temperature: 97.6 F Pulse Rate: 70 Blood Pressure: 147/76 Respiratory Rate: 16 Pulse Ox: 98 Oxygen Delivery Method: Room Air Airway Assessment Mouth opens: >3 cm Mallampati Score: II Teeth Condition: Caps/Crowns Neck Range of motion (ROM): Limited ROM Labs Anesthesia Preop lab: CBC WBC, (4.4-11.0) 6.0 K/mm3 12/19/24, 08:32 RBC, (4.2-5.4) 3.88 M/mm3 L 12/19/24, 08:32 Hgb, (12.0-15.0) 12.1 g/dL 12/19/24, 08:32 Hct, (37-47) 36.0 % L 12/19/24, 08:32 Plt Count, (150-450) 365 K/mm3 12/19/24, 08:32 CHEMISTRY Potassium, (3.5-5.1) 4.2 mmol/L 01/02/21, 06:28 Sodium, (136-145) 138 mmol/L 01/02/21, 06:28 Magnesium, (1.6-2.6) 2.1 mg/dL 12/24/20, 12:18 BUN, (7-18) 12 mg/dL 01/02/21, 06:28 Creatinine, (0.55-1.02) 0.72 mg/dL 01/02/21, 06:28 Glucose, (74-106) 134 mg/dL H 01/02/21, 06:28 POC Glucose, (70-110) 97 mg/dL 01/01/21, 11:34 TSH, (0.358-3.740) 2.040 uIU/mL 11/07/24, 11:52 COAG PT, (11.7-14.9) 12.6 SECONDS 12/24/20, 12:19 Pre-Assessment Diagnosis/Proposed Procedure Planned Operative Procedure(s): COLONOSCOPY Anesthesia History Anesthesia History - transportation economics teacher: Anesthesia History - transportation economics teacher Hx Hospitalization No 07/03/25 13:08 Any Problems With Anesthesia No 07/03/25 13:08 Cholinesterase deficiency No 07/03/25 13:08 You/Your Family Experience No 07/03/25 13:08 fever (hyperthermia) with Relationship Recent Exposure to Contagious Yes 07/05/25 09:34 Disease Does patient have nerve No 07/03/25 13:08 stimulator Patient instructed to have device shut off --Does patient have Pacemaker No 07/05/25 09:34 or ICD? When Was Last Pacemaker Check QUESTION #4 FULL TEXT: You/Your Family Experience fever (hyperthermia) with Anesthesia Last Oral Intake Last Oral intake: Last Oral Intake NPO since 05:00 07/05/25 09:34 Meds taken in AM with sips of No 07/05/25 09:34 water? 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 - transportation economics teacher: PONV - transportation economics teacher Female Yes 07/03/25 13:08 HX of Motion Sickness No 07/03/25 13:08 HX of N/V After Surgery No 07/03/25 13:08 Non-Smoker Yes 07/03/25 13:08 Duration of Surgery greater No 07/03/25 13:08 than 60 minutes Number of Risk Factors 2 07/03/25 13:08 PONV Score Moderate Risk 07/03/25 13:08 Height & Weight Height & Weight: Anesthesia: Height & Weight Height 5 ft 2 in 07/05/25 09:34 Weight: 60 kg 07/05/25 09:34 Body Mass Index (BMI) 24.2 07/05/25 09:34 Respiratory Assessment Respiratory Assessment - transportation economics teacher: Respiratory Tract Infection Hx - transportation economics teacher Hx Respiratory Tract Infection No 07/03/25 13:08 STOP Sleep Apnea STOP Sleep Apnea - transportation economics teacher: STOP Sleep Apnea - transportation economics teacher Hx Hypertension Yes: CONTROLLED ON MED 07/03/25 13:08 Hx Sleep Apnea No 07/03/25 13:08 CPAP BIPAP Do you snore loudly (louder No 07/03/25 13:08 than talking or can be heard Do you often feel tired/ No 07/03/25 13:08 fatigued/ sleepy during daytime? Has anyone observed you stop No 07/03/25 13:08 breathing during sleep? STOP Results Negative 07/03/25 13:08 QUESTION #5 FULL TEXT : Do you snore loudly (louder than talking or can be heard through closed doors)? 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 Specify any problems Hx of Preganancy in last 3 No 07/03/25 13:08 Months Nurse Filling Out Transfusion VCHRISTIN 07/03/25 13:08 & Questions: Date: 07/03/25 07/03/25 13:08 Time: 13:09 07/03/25 13:08 Patient unable to answer at this time (ie. confused, unrespo /Reproduction History /Reproductive History - transportation economics teacher: /Reproductive Hx- transportation economics teacher Hx Now No 07/03/25 13:08 Gestational Age (in weeks): EDC: Hx Hx Para Hx Section SAB No 07/03/25 13:08 Active Medications Active Medications: Current Medications Generic Name Dose Route Start Last Admin Trade Name Freq PRN Reason Stop Dose Admin Lactated Ringer's 1,000 mls @ 15 mls/hr 07/05/25 09:15 IV .Q48H LORENA PFSH Medical History History of Holter monitoring History of stress test Cardiology follow-up encounter Congenital spondylolysis Pharyngeal dysphagia Dizziness and giddiness Elevated fasting glucose IBS (irritable bowel syndrome) Hypercholesteremia Dysphagia Diverticulosis small intestine Diverticula of colon Diarrhea Benign neoplasm of colon Renal stone Wears glasses Post-menopausal Arthritis Low iron Back pain History of IBS Non-smoker History of echocardiogram Cardiology follow-up encounter Acute blood loss anemia Spinal stenosis Essential hypertension Elevated coronary artery calcium score Dizziness Left bundle branch block Home Medications ?Medication ?Instructions ?Recorded ?Last Taken ?Type garlic 1,000 mg capsule 2,400 mg PO DAILY supplement 12/13/19 07/04/25 History ascorbic acid (vitamin C) 500 mg 1 g PO DAILY@0800 supplement 12/20/20 07/04/25 History tablet coenzyme Q10 100 mg capsule 100 mg PO DAILY heart supplement 12/20/20 07/04/25 History calcium 600 mg capsule 600 mg PO DAILY 01/29/23 07/04/25 History gabapentin 100 mg capsule 300 mg PO QHS 01/06/24 07/04/25 History cholecalciferol (vitamin D3) 25 25 mcg PO QDAY 08/09/24 07/04/25 History mcg (1,000 unit) capsule magnesium 250 mg tablet 250 mg PO QDAY 08/09/24 07/04/25 History omega-3 fatty acids-fish oil 360 1 cap PO QDAY 08/09/24 07/01/25 History mg-1,200 mg capsule (Fish Oil) turmeric root extract 500 mg 1,000 mg PO QDAY 08/09/24 07/04/25 History capsule multivitamin 1 tab PO QDAY 11/07/24 07/04/25 History Lactobacillus rhamnosus-Bifidobac. 1 cap PO DAILY 01/03/25 07/04/25 History animalis 3 billion cell capsule (Tagboard) coffee extract 100 mg-phosphatidyl 1 cap PO DAILY 01/03/25 07/04/25 History serine 100 mg capsule (Mind and Memory) glucosamine 750 mx-sjqyacxfapd-fze 1 tab PO DAILY 01/03/25 07/04/25 History no1 644 mg-C 30 mg-kamila 1 mg tablet (Osteo Bi-Flex Triple Strength) metoprolol tartrate 25 mg tablet 25 mg PO BID #60 tabs 03/30/25 Unknown Rx azelastine 137 mcg (0.1 %) nasal 1 spray intranasal BID 05/26/25 07/04/25 History spray budesonide 3 mg 3 mg PO QAM #80 ea 06/01/25 07/04/25 Rx capsule,delayed,extended release meloxicam 15 mg tablet 15 mg PO DAILY 07/03/25 07/04/25 History Allergy/AdvReac Type Severity Reaction Status Date / Time cigarette smoke Allergy Intermediate difficulty Verified 07/05/25 09:33 breathing Seasonal Allergies: Uncoded Allergy SINUSES Verified 07/05/25 09:33 latex AdvReac Mild Skin Verified 07/05/25 09:33 irritation, and skin tearing hydrocodone (From [place]) AdvReac suicidal Verified 07/05/25 09:33 oxycodone AdvReac flu-like Verified 07/05/25 09:33 symptoms tramadol AdvReac suicidal Verified 07/05/25 09:33 Family History Father Negative for ASCVD Colon cancer Mother Negative for ASCVD Colon cancer Brother Lung cancer Sister Bile duct cancer Lung cancer Other Neoplasm of gastrointestinal tract Surgical History Hx of colonoscopy H/O hand surgery History of back surgery (06/2020) History of total knee arthroplasty (01/01/21) Hx of cataract surgery S/P trigger finger release History of carpal tunnel release of both wrists History of lateral meniscus repair of right knee Social History household members: spouse housing: house Smoking Status: Never smoker second hand exposure: No alcohol intake: never substance use type: does not use caffeine: Yes Type: coffee and tea what type of physical activity do you participate in: walking and additional details: exercises for her back and knee frequency: daily seatbelt use: always do you feel safe at home: Yes additional social history: denies vaping, denies marijuana use, denies edibles, denies aspirin and ibuprofen use denies family history of blood clotting disorders Review of Systems (Anesthesia) ROS Narrative System reviewed and no additional complaints, except as documented.
--- NOTE | 2025-07-05 10:00 | COLBX_PTH ---
PATIENT: ECHO REED LOC: EN U#:[id number] AGE/SX: 85/F ROOM: RE07/05/[address]: Dr. Jose De Jesus Gonzalez DO : 1940 BED: DIS: 07/05/2025 SPEC #: [id number] RECD: 07/05/25 11:37 STATUS: GE REBrittany #: [id number] DENNIS: 07/05/25 10:[address]: Jose De Jesus Gonzalez DEPT: SURGICAL PATHOLOGY RECD BY: Gui Saha ENTERED: 07/05/25 15:11 SP TYPE: COLON BX OTHR DR: Dr. Charisma Healy MD Tissues: A - Esophagus, NOS B - COLON BIOPSY Procedures: Surgery Specimen Level IV HEADER OPERATION: Colonoscopy with biopsy, EGD with biopsy and dilation PRE-OP DIAGNOSIS: Rectocele, dysphagia, gastroparesis, family history of colon cancer TISSUE SUBMITTED: A- Random esophagus biopsy, B- Random colon biopsy MICROSCOPIC DIAGNOSIS A. Esophagus, random biopsy: * Benign squamous epithelium with no pathologic change B. Colon, random biopsy: * Benign colonic mucosa with no pathologic change MICROSCOPIC DESCRIPTION Slides are reviewed. GROSS DESCRIPTION A. Received in fixative is one container labeled with the patient's name and designated Random esophagus biopsy. The specimen consists of four irregular fragments of ochoa tissue that measure 0.1 to 0.4 cm. The specimen is totally submitted in one cassette. B. Received in fixative is one container labeled with the patient's name and designated Random colon biopsy. The specimen consists of multiple irregular fragments of ochoa tissue that in aggregate measure 1 x 0.6 x 0.2 cm. The specimen is totally submitted in one cassette. CT 07/05/2025 CPT:06213n1
--- NOTE | 2025-07-05 10:00 | COLBX_PTH ---
PATIENT: ECHO REED LOC: EN U#:[id number] AGE/SX: 85/F ROOM: RE07/05/[address]: Dr. Jose De Jesus Gonzalez DO : 1940 BED: DIS: 07/05/2025 SPEC #: [id number] RECD: 07/05/25 11:37 STATUS: GE REBrittany #: [id number] DENNIS: 07/05/25 10:[address]: Jose De Jesus Gonzalez DEPT: SURGICAL PATHOLOGY RECD BY: Gui Saha ENTERED: 07/05/25 15:11 SP TYPE: COLON BX OTHR DR: Dr. Charisma Healy MD Tissues: A - Esophagus, NOS B - COLON BIOPSY Procedures: Surgery Specimen Level IV HEADER OPERATION: Colonoscopy with biopsy, EGD with biopsy and dilation PRE-OP DIAGNOSIS: Rectocele, dysphagia, gastroparesis, family history of colon cancer TISSUE SUBMITTED: A- Random esophagus biopsy, B- Random colon biopsy MICROSCOPIC DIAGNOSIS A. Esophagus, random biopsy: * Benign squamous epithelium with no pathologic change B. Colon, random biopsy: * Benign colonic mucosa with no pathologic change MICROSCOPIC DESCRIPTION Slides are reviewed. GROSS DESCRIPTION A. Received in fixative is one container labeled with the patient's name and designated Random esophagus biopsy. The specimen consists of four irregular fragments of ochoa tissue that measure 0.1 to 0.4 cm. The specimen is totally submitted in one cassette. B. Received in fixative is one container labeled with the patient's name and designated Random colon biopsy. The specimen consists of multiple irregular fragments of ochoa tissue that in aggregate measure 1 x 0.6 x 0.2 cm. The specimen is totally submitted in one cassette. OR 07/05/2025 CPT:81502l3
--- NOTE | 2025-07-05 11:05 | OP.PROVAT_ITS ---
07/05/2025 Charisma Healy [address] [place] [address] Re : Upper GI endoscopy procedure for Mark Anthony Cortes Dear Dr. Healy This procedure was performed on Saturday, July 05, 2025. My impressions and recommendations are as follows: Impressions : - Esophageal mucosal changes suggestive of eosinophilic esophagitis. Dilated. - Abnormal esophageal motility, consistent with achalasia. - No gross lesions in the entire stomach. - No gross lesions in the entire examined duodenum. - Biopsies were taken with a cold forceps for evaluation of eosinophilic esophagitis. Recommendations : - Discharge patient to home. - Resume previous diet. - Continue present medications. - Await pathology results. - Omeprazole 20 mg p.o. twice daily My findings are described in the full procedure note, which is enclosed. If I can be of further assistance, please feel free to contact me at . Sincerely, Jose De Jesus Gonzalez, 07/05/2025 11:04:49 AM This report has been signed electronically.
--- NOTE | 2025-07-05 11:05 | OP.EGD_ITS ---
Patient Name: Mark Anthony Cortes Procedure Date: 07/05/2025 10:15 AM Date of : 1940 Age: 85 Procedure: Upper GI endoscopy Indications: Dysphagia Providers: Jose De Jesus Gonzalez DO Medicines: Monitored Anesthesia Care Patient Profile: This is an 85 year old female. Refer to note in patient chart for documentation of history and physical. Patient has symptoms of dysphagia with solids. Complications: No immediate complications. Procedure: Pre-Anesthesia Assessment: - Prior to the procedure, a History and Physical was performed, and patient medications and allergies were reviewed. The patient is competent. The risks and benefits of the procedure and the sedation options and risks were discussed with the patient. All questions were answered and informed consent was obtained. Patient identification and proposed procedure were verified by the physician in the pre-procedure area. Mental Status Examination: alert and oriented. Airway Examination: normal oropharyngeal airway and neck mobility. Respiratory Examination: clear to auscultation. CV Examination: normal. Prophylactic Antibiotics: The patient does not require prophylactic antibiotics. Prior Anticoagulants: The patient has taken no anticoagulant or antiplatelet agents. ASA Grade Assessment: II - A patient with mild systemic disease. After reviewing the risks and benefits, the patient was deemed in satisfactory condition to undergo the procedure. The anesthesia plan was to use monitored anesthesia care (MAC). Immediately prior to administration of medications, the patient was re-assessed for adequacy to receive sedatives. The heart rate, respiratory rate, oxygen saturations, blood pressure, adequacy of pulmonary ventilation, and response to care were monitored throughout the procedure. The physical status of the patient was re-assessed after the procedure. After obtaining informed consent, the endoscope was passed under direct vision. Throughout the procedure, the patient's blood pressure, pulse, and oxygen saturations were monitored continuously. The Colonoscope was introduced through the mouth, and advanced to the second part of duodenum. The upper GI endoscopy was accomplished without difficulty. The patient tolerated the procedure well. Scope In: 10:33:17 AM Scope Out: 10:38:40 AM Total Procedure Duration Time 0 hours 5 minutes 23 seconds Findings: Mucosal changes including ringed esophagus, longitudinal furrows and small-caliber esophagus were found in the middle third of the esophagus and in the lower third of the esophagus. Biopsies were obtained from the proximal and distal esophagus with cold forceps for histology of suspected eosinophilic esophagitis. A guidewire was placed and the scope was withdrawn. Dilation was performed with a Savary dilator with no resistance at 54 Fr. The dilation site was examined and showed moderate improvement in luminal narrowing. Abnormal motility was noted in the lower third of the esophagus. The cricopharyngeus was normal. There are extra peristaltic waves in the esophageal body. The distal esophagus/lower esophageal sphincter is spastic, but gives up passage to the endoscope. Tertiary peristaltic waves are noted. No gross lesions were noted in the entire examined stomach. No gross lesions were noted in the entire examined duodenum. Impression: - Esophageal mucosal changes suggestive of eosinophilic esophagitis. Dilated. - Abnormal esophageal motility, consistent with achalasia. - No gross lesions in the entire stomach. - No gross lesions in the entire examined duodenum. - Biopsies were taken with a cold forceps for evaluation of eosinophilic esophagitis. Recommendation: - Discharge patient to home. - Resume previous diet. - Continue present medications. - Await pathology results. - Omeprazole 20 mg p.o. twice daily Procedure Code(s): --- Professional --- 04812, Esophagogastroduodenoscopy, flexible, transoral; with insertion of guide wire followed by passage of dilator(s) through esophagus over guide wire [id number], 59,51, Esophagogastroduodenoscopy, flexible, transoral; with biopsy, single or multiple CPT copyright 2021 [employer]. All rights reserved. The codes documented in this report are preliminary and upon syrup shed supervisor review may be revised to meet current compliance requirements. Jose De Jesus Gonzalez DO 07/05/2025 11:04:49 AM This report has been signed electronically. Number of Addenda: 0 Note Initiated On: 07/05/2025 10:15 AM
--- NOTE | 2025-07-05 11:05 | OP.EGD_ITS ---
Patient Name: Mark Anthony Cortes Procedure Date: 07/05/2025 10:15 AM Date of : 1940 Age: 85 Procedure: Upper GI endoscopy Indications: Dysphagia Providers: Jose De Jesus Gonzalez DO Medicines: Monitored Anesthesia Care Patient Profile: This is an 85 year old female. Refer to note in patient chart for documentation of history and physical. Patient has symptoms of dysphagia with solids. Complications: No immediate complications. Procedure: Pre-Anesthesia Assessment: - Prior to the procedure, a History and Physical was performed, and patient medications and allergies were reviewed. The patient is competent. The risks and benefits of the procedure and the sedation options and risks were discussed with the patient. All questions were answered and informed consent was obtained. Patient identification and proposed procedure were verified by the physician in the pre-procedure area. Mental Status Examination: alert and oriented. Airway Examination: normal oropharyngeal airway and neck mobility. Respiratory Examination: clear to auscultation. CV Examination: normal. Prophylactic Antibiotics: The patient does not require prophylactic antibiotics. Prior Anticoagulants: The patient has taken no anticoagulant or antiplatelet agents. ASA Grade Assessment: II - A patient with mild systemic disease. After reviewing the risks and benefits, the patient was deemed in satisfactory condition to undergo the procedure. The anesthesia plan was to use monitored anesthesia care (MAC). Immediately prior to administration of medications, the patient was re-assessed for adequacy to receive sedatives. The heart rate, respiratory rate, oxygen saturations, blood pressure, adequacy of pulmonary ventilation, and response to care were monitored throughout the procedure. The physical status of the patient was re-assessed after the procedure. After obtaining informed consent, the endoscope was passed under direct vision. Throughout the procedure, the patient's blood pressure, pulse, and oxygen saturations were monitored continuously. The Colonoscope was introduced through the mouth, and advanced to the second part of duodenum. The upper GI endoscopy was accomplished without difficulty. The patient tolerated the procedure well. Scope In: 10:33:17 AM Scope Out: 10:38:40 AM Total Procedure Duration Time 0 hours 5 minutes 23 seconds Findings: Mucosal changes including ringed esophagus, longitudinal furrows and small-caliber esophagus were found in the middle third of the esophagus and in the lower third of the esophagus. Biopsies were obtained from the proximal and distal esophagus with cold forceps for histology of suspected eosinophilic esophagitis. A guidewire was placed and the scope was withdrawn. Dilation was performed with a Savary dilator with no resistance at 54 Fr. The dilation site was examined and showed moderate improvement in luminal narrowing. Abnormal motility was noted in the lower third of the esophagus. The cricopharyngeus was normal. There are extra peristaltic waves in the esophageal body. The distal esophagus/lower esophageal sphincter is spastic, but gives up passage to the endoscope. Tertiary peristaltic waves are noted. No gross lesions were noted in the entire examined stomach. No gross lesions were noted in the entire examined duodenum. Impression: - Esophageal mucosal changes suggestive of eosinophilic esophagitis. Dilated. - Abnormal esophageal motility, consistent with achalasia. - No gross lesions in the entire stomach. - No gross lesions in the entire examined duodenum. - Biopsies were taken with a cold forceps for evaluation of eosinophilic esophagitis. Recommendation: - Discharge patient to home. - Resume previous diet. - Continue present medications. - Await pathology results. - Omeprazole 20 mg p.o. twice daily Procedure Code(s): --- Professional --- 22365, Esophagogastroduodenoscopy, flexible, transoral; with insertion of guide wire followed by passage of dilator(s) through esophagus over guide wire [id number], 59,51, Esophagogastroduodenoscopy, flexible, transoral; with biopsy, single or multiple CPT copyright 2021 [employer]. All rights reserved. The codes documented in this report are preliminary and upon computer language coder review may be revised to meet current compliance requirements. Jose De Jesus Gonzalez DO 07/05/2025 11:04:49 AM This report has been signed electronically. Number of Addenda: 0 Note Initiated On: 07/05/2025 10:15 AM
--- NOTE | 2025-07-05 11:08 | OP.COLON_ITS ---
Patient Name: Mark Anthony Cortes Procedure Date: 07/05/2025 10:38 AM Date of : 1940 Age: 85 Procedure: Colonoscopy Indications: Clinically significant diarrhea of unexplained origin Providers: Jose De Jesus Gonzalez DO Medicines: Monitored Anesthesia Care Patient Profile: This is an 85 year old female. Refer to note in patient chart for documentation of history and physical. Patient has symptoms of dysphagia with solids. Last Colonoscopy: several years ago. Complications: No immediate complications. Procedure: Pre-Anesthesia Assessment: - Prior to the procedure, a History and Physical was performed, and patient medications and allergies were reviewed. The patient is competent. The risks and benefits of the procedure and the sedation options and risks were discussed with the patient. All questions were answered and informed consent was obtained. Patient identification and proposed procedure were verified by the physician in the pre-procedure area. Mental Status Examination: alert and oriented. Airway Examination: normal oropharyngeal airway and neck mobility. Respiratory Examination: clear to auscultation. CV Examination: normal. Prophylactic Antibiotics: The patient does not require prophylactic antibiotics. Prior Anticoagulants: The patient has taken no anticoagulant or antiplatelet agents. ASA Grade Assessment: II - A patient with mild systemic disease. After reviewing the risks and benefits, the patient was deemed in satisfactory condition to undergo the procedure. The anesthesia plan was to use monitored anesthesia care (MAC). Immediately prior to administration of medications, the patient was re-assessed for adequacy to receive sedatives. The heart rate, respiratory rate, oxygen saturations, blood pressure, adequacy of pulmonary ventilation, and response to care were monitored throughout the procedure. The physical status of the patient was re-assessed after the procedure. After I obtained informed consent, the scope was passed under direct vision. Throughout the procedure, the patient's blood pressure, pulse, and oxygen saturations were monitored continuously. The Colonoscope was introduced through the anus and advanced to the terminal ileum. The colonoscopy was performed without difficulty. The patient tolerated the procedure well. The quality of the bowel preparation was adequate. The terminal ileum, ileocecal valve, appendiceal orifice, and rectum were photographed. Scope In: 10:39:41 AM Scope Withdrawal Time 0 hours 13 minutes 29 seconds Scope Out: 10:57:46 AM Total Procedure Duration Time 0 hours 18 minutes 5 seconds Findings: The perianal and digital rectal examinations were normal. Moderate rectal prolapse was present. Multiple small and large-mouthed diverticula were found in the entire colon. An area of moderately congested mucosa was found in the recto-sigmoid colon, in the sigmoid colon, in the ascending colon and in the cecum. Biopsies for histology were taken with a cold forceps from the cecum, ascending colon, sigmoid colon and rectosigmoid colon for evaluation of microscopic colitis. Verification of patient identification for the specimen was done. Estimated blood loss was minimal. Retroflexion in the rectum was not performed due to anatomy. Impression: - Rectal prolapse. - Diverticulosis in the entire examined colon. - Congested mucosa in the recto-sigmoid colon, in the sigmoid colon, in the ascending colon and in the cecum. Biopsied. Recommendation: - Discharge patient to home. - Resume previous diet. - Continue present medications. - Await pathology results. - No repeat colonoscopy due to age. Procedure Code(s): --- Professional --- 83002, Colonoscopy, flexible; with biopsy, single or multiple CPT copyright 2021 [employer]. All rights reserved. The codes documented in this report are preliminary and upon field gauger review may be revised to meet current compliance requirements. Jose De Jesus Gonzalez DO 07/05/2025 11:08:46 AM This report has been signed electronically. Number of Addenda: 0 Note Initiated On: 07/05/2025 10:38 AM
--- NOTE | 2025-07-05 11:08 | OP.COLON_ITS ---
Patient Name: Mark Anthony Cortes Procedure Date: 07/05/2025 10:38 AM Date of : 1940 Age: 85 Procedure: Colonoscopy Indications: Clinically significant diarrhea of unexplained origin Providers: Jose De Jesus Gonzalez DO Medicines: Monitored Anesthesia Care Patient Profile: This is an 85 year old female. Refer to note in patient chart for documentation of history and physical. Patient has symptoms of dysphagia with solids. Last Colonoscopy: several years ago. Complications: No immediate complications. Procedure: Pre-Anesthesia Assessment: - Prior to the procedure, a History and Physical was performed, and patient medications and allergies were reviewed. The patient is competent. The risks and benefits of the procedure and the sedation options and risks were discussed with the patient. All questions were answered and informed consent was obtained. Patient identification and proposed procedure were verified by the physician in the pre-procedure area. Mental Status Examination: alert and oriented. Airway Examination: normal oropharyngeal airway and neck mobility. Respiratory Examination: clear to auscultation. CV Examination: normal. Prophylactic Antibiotics: The patient does not require prophylactic antibiotics. Prior Anticoagulants: The patient has taken no anticoagulant or antiplatelet agents. ASA Grade Assessment: II - A patient with mild systemic disease. After reviewing the risks and benefits, the patient was deemed in satisfactory condition to undergo the procedure. The anesthesia plan was to use monitored anesthesia care (MAC). Immediately prior to administration of medications, the patient was re-assessed for adequacy to receive sedatives. The heart rate, respiratory rate, oxygen saturations, blood pressure, adequacy of pulmonary ventilation, and response to care were monitored throughout the procedure. The physical status of the patient was re-assessed after the procedure. After I obtained informed consent, the scope was passed under direct vision. Throughout the procedure, the patient's blood pressure, pulse, and oxygen saturations were monitored continuously. The Colonoscope was introduced through the anus and advanced to the terminal ileum. The colonoscopy was performed without difficulty. The patient tolerated the procedure well. The quality of the bowel preparation was adequate. The terminal ileum, ileocecal valve, appendiceal orifice, and rectum were photographed. Scope In: 10:39:41 AM Scope Withdrawal Time 0 hours 13 minutes 29 seconds Scope Out: 10:57:46 AM Total Procedure Duration Time 0 hours 18 minutes 5 seconds Findings: The perianal and digital rectal examinations were normal. Moderate rectal prolapse was present. Multiple small and large-mouthed diverticula were found in the entire colon. An area of moderately congested mucosa was found in the recto-sigmoid colon, in the sigmoid colon, in the ascending colon and in the cecum. Biopsies for histology were taken with a cold forceps from the cecum, ascending colon, sigmoid colon and rectosigmoid colon for evaluation of microscopic colitis. Verification of patient identification for the specimen was done. Estimated blood loss was minimal. Retroflexion in the rectum was not performed due to anatomy. Impression: - Rectal prolapse. - Diverticulosis in the entire examined colon. - Congested mucosa in the recto-sigmoid colon, in the sigmoid colon, in the ascending colon and in the cecum. Biopsied. Recommendation: - Discharge patient to home. - Resume previous diet. - Continue present medications. - Await pathology results. - No repeat colonoscopy due to age. Procedure Code(s): --- Professional --- 17040, Colonoscopy, flexible; with biopsy, single or multiple CPT copyright 2021 [employer] [place] [employer] [employer]. All rights reserved. The codes documented in this report are preliminary and upon invoice coder review may be revised to meet current compliance requirements. Jose De Jesus Gonzalez DO 07/05/2025 11:08:46 AM This report has been signed electronically. Number of Addenda: 0 Note Initiated On: 07/05/2025 10:38 AM
--- NOTE | 2025-07-05 11:09 | OP.PROVAT_ITS ---
07/05/2025 Charisma Healy [address] [place] [address] Re : Colonoscopy procedure for Mark Anthony Cortes Dear Dr. Healy This procedure was performed on Saturday, July 05, 2025. My impressions and recommendations are as follows: Impressions : - Rectal prolapse. - Diverticulosis in the entire examined colon. - Congested mucosa in the recto-sigmoid colon, in the sigmoid colon, in the ascending colon and in the cecum. Biopsied. Recommendations : - Discharge patient to home. - Resume previous diet. - Continue present medications. - Await pathology results. - No repeat colonoscopy due to age. My findings are described in the full procedure note, which is enclosed. If I can be of further assistance, please feel free to contact me at . Sincerely, Jose De Jesus Gonzalez, 07/05/2025 11:08:46 AM This report has been signed electronically.
--- NOTE | 2025-07-05 11:09 | OP.PROVAT_ITS ---
07/05/2025 Charisma Healy [address] [place] [address] Re : Colonoscopy procedure for Mark Anthony Cortes Dear Dr. Healy This procedure was performed on Saturday, July 05, 2025. My impressions and recommendations are as follows: Impressions : - Rectal prolapse. - Diverticulosis in the entire examined colon. - Congested mucosa in the recto-sigmoid colon, in the sigmoid colon, in the ascending colon and in the cecum. Biopsied. Recommendations : - Discharge patient to home. - Resume previous diet. - Continue present medications. - Await pathology results. - No repeat colonoscopy due to age. My findings are described in the full procedure note, which is enclosed. If I can be of further assistance, please feel free to contact me at . Sincerely, Jose De Jesus Gonzalez, 07/05/2025 11:08:46 AM This report has been signed electronically.
--- NOTE | 2025-07-05 11:10 | PCM.POST.ANE ---
Anesthesia: Postop Eval I Current Vital Signs Temperature: 97.1 F Pulse Rate: 71 Blood Pressure: 116/58 Respiratory Rate: 16 Pulse Ox: 96 Oxygen Delivery Method: Room Air Assessment Airway patent: Yes Spontaneous unlabored respirations: Yes Mental status: Asleep nausea: No Vomiting: No Anesthesia Complication: No Fluid Hydration Crystalloid volume administer (ml): 900 Total IV fluid infused: 900 Progress Note Anesthesia document: Postop Eval 1 completed: Yes
--- NOTE | 2025-07-05 12:09 | PCM.POSTANE2 ---
Anesthesia Postop Eval I Sum Postop Eval Completion status Anesthesia document: Postop Eval 1 completed: Yes Anesthesia Postop Eval I Summary Anesthesia Postop Eval I Summary: Anesthesia Postop Eval I: Assessment Summary Airway patent Yes 07/05/25 11:11 [email or web address] Spontaneous unlabored Yes 07/05/25 11:11 [email or web address] respirations Mental status Asleep 07/05/25 11:11 [email or web address] nausea No 07/05/25 11:11 [email or web address] Vomiting No 07/05/25 11:11 [email or web address] Anesthesia Postop Eval I: Fluid Summary Crystalloid volume administer 900 07/05/25 11:11 [email or web address] (ml) Colloids volume administered ( ml) Blood Product volume administered (ml) Total IV fluid infused 900 07/05/25 11:11 [email or web address] Anesthesia Postop Eval I: Summary Notes Anesthesia Complication No 07/05/25 11:11 [email or web address] Anesthesia Complication Comment: Post-operative progress note Anesthesia: Postop Eval II Evaluation Mental status: Awake and Calm Pain Level: 1 nausea: No Vomiting: No Complications Anesthesia Complication: No
== END 2025-07-05 11:49 | disposition home or self-care (01) ==
LOC: EN 08:59 → AC 09:00
PROVIDERS: PCP Internal Medicine; Referring Provider Internal Medicine; Visit Provider Internal Medicine Gastroenterology
PROC: 0DJD8ZZ Inspection of Lower Intestinal Tract, Via Natural or Artificial Opening Endoscopic (ICD-10-PCS; CPT 45378; principal; 2025-07-05 09:55)
DX: K57.30 Diverticulosis of large intestine without perforation or abscess without bleeding (principal); R13.10 Dysphagia, unspecified; I10 Essential (primary) hypertension; R53.83 Other fatigue; E78.00 Pure hypercholesterolemia, unspecified; K62.3 Rectal prolapse; N81.6 Rectocele; Z80.0 Family history of malignant neoplasm of digestive organs; K31.84 Gastroparesis; Z79.899 Other long term (current) drug therapy; M19.90 Unspecified osteoarthritis, unspecified site; Z79.1 Long term (current) use of non-steroidal anti-inflammatories (NSAID); Z96.659 Presence of unspecified artificial knee joint; K22.0 Achalasia of cardia; R19.7 Diarrhea, unspecified; K63.89 Other specified diseases of intestine; K22.89 Other specified disease of esophagus
CPT/HCPCS: 45380; 43248; 43239; 88305; C1769; J2405

== ENCOUNTER → 2025-08-07 | Outpatient (CLI) | payer MEDICARE, OTHER, SELFPAY ==
--- NOTE | 2025-08-07 08:28 | CT_ITS ---
PROCEDURE: EXTREMITY LOWER WITHOUT CONTRA 08/07/2025 REASON FOR EXAM: TEMPLATING FOR LEFT TKA TECHNIQUE: Procedure Code: CTELWO Modality: CT Procedure: EXTREMITY LOWER WITHOUT CONTRA Coronal and Sagittal reconstruction series were provided, left hip. CONTRAST: None One or more dose reduction techniques were used (e.g., Automated exposure control, adjustment of the mA and/or kV according to patient size, use of iterative reconstruction technique). RADIATION DOSE SUMMARY: DLP: 1233 mGycm COMPARISON: None FINDINGS: There is moderate osteoarthritis with joint space narrowing and marginal osteophytes. Subcortical cyst formation is noted in the superolateral acetabulum. There is a 0.5 cm corticated osteochondral fragment in the anterior joint space. Atherosclerotic calcifications are noted. CT/Extremity Lower without Contra IMPRESSION: There is moderate osteoarthritis with joint space narrowing and marginal osteop hytes. Subcortical cyst formation is noted in the superolateral acetabulum. There is a 0.5 cm corticated osteochondral fragment in the anterior joint space . Reading Location: [facility]
== END | disposition home or self-care (01) ==
LOC: CT 08:27
PROVIDERS: PCP Internal Medicine; Referring Provider Orthopaedic Surgery; Visit Provider Orthopaedic Surgery
DX: M17.12 Unilateral primary osteoarthritis, left knee (principal)
CPT/HCPCS: 73700